=== PATIENT | male | born 1970 | race Hispanic/Latino ===

== ENCOUNTER 2017-09-26 16:09 | Emergency (ER) | payer OTHER, SELFPAY ==
[2017-09-26] MEDS ORDERED: MUPIROCIN 2% OINT 22GM TUBE TOP ONE (18:20)
[2017-09-26] MEDS ORDERED: INSULIN -REGULAR HUMAN 50 UNIT/0.5 ML ML ONE (18:23)
--- NOTE | 2017-09-26 18:28 | EDPHYS ---
Physician Documentation [facility] Name: Lion Pickard Age: 47 yrs Sex: Male : 1970 Arrival Date: 09/26/2017 Time: 16:12 Bed 20 Private MD: out of town, doctor ED Physician Cristian Braga HPI: 09/26 18:23 This 47 yrs old Male presents to ER via Ambulatory with complaints of Insect david Bite. 18:23 The patient presents with an abscess of the right breast, The patient presents with david cellulitis of the right breast. Description: The affected area is small, localized, erythematous, raised, swollen. Onset: The symptoms/episode began/occurred 1 week(s) ago. Possible cause(s): insect sting. Associated signs and symptoms: The patient has no apparent associated signs or symptoms. Modifying factors: the symptoms are alleviated by nothing, the symptoms are aggravated by pressure, squeezing the lesion and expressing the contents. The patient has not experienced similar symptoms in the past. Historical: - Allergies: 16:18 No Known Allergies; rk2 - PMHx: 16:18 Diabetes - IDDM; Hernia; Hypertension; rk2 - Immunization history:: Pneumococcal vaccine is not up to date, Flu vaccine is up to date. - Social history:: Smoking status: Patient/guardian denies using tobacco, the patient reports quitting approximately 6 years ago. - Family history:: not pertinent. ROS: 18:23 Constitutional: Negative for fever, chills, and weight loss, Eyes: Negative for injury, david pain, redness, and discharge, ENT: Negative for injury, pain, and discharge, Neck: Negative for injury, pain, and swelling, Cardiovascular: Negative for chest pain, palpitations, and edema, Respiratory: Negative for shortness of breath, cough, wheezing, and pleuritic chest pain, Abdomen/GI: Negative for abdominal pain, nausea, vomiting, diarrhea, and constipation, Back: Negative for injury and pain, : Negative for injury, bleeding, discharge, and swelling, MS/Extremity: Negative for injury and deformity, Neuro: Negative for headache, weakness, numbness, tingling, and seizure, Psych: Negative for depression, anxiety, suicide ideation, homicidal ideation, and hallucinations, Allergy/Immunology: Negative for hives, rash, and allergies, Endocrine: Negative for neck swelling, polydipsia, polyuria, polyphagia, and marked weight changes, Hematologic/Lymphatic: Negative for swollen nodes, abnormal bleeding, and unusual bruising. 18:23 Skin: Positive for cellulitis, erythema, swelling, of the right breast. Exam: 18:23 Constitutional: This is a well developed, well nourished patient who is awake, alert, david and in no acute distress. Head/Face: Normocephalic, atraumatic. Eyes: Pupils equal round and reactive to light, extra-ocular motions intact. Lids and lashes normal. Conjunctiva and sclera are non-icteric and not injected. Cornea within normal limits. Periorbital areas with no swelling, redness, or edema. ENT: Nares patent. No nasal discharge, no septal abnormalities noted. Tympanic membranes are normal and external auditory canals are clear. Oropharynx with no redness, swelling, or masses, exudates, or evidence of obstruction, uvula midline. Mucous membranes moist. Neck: Trachea midline, no thyromegaly or masses palpated, and no cervical lymphadenopathy. Supple, full range of motion without nuchal rigidity, or vertebral point tenderness. No Meningismus. Chest/axilla: Normal chest wall appearance and motion. Nontender with no deformity. No lesions are appreciated. Cardiovascular: Regular rate and rhythm with a normal S1 and S2. No gallops, murmurs, or rubs. Normal PMI, no JVD. No pulse deficits. Respiratory: Lungs have equal breath sounds bilaterally, clear to auscultation and percussion. No rales, rhonchi or wheezes noted. No increased work of breathing, no retractions or nasal flaring. Abdomen/GI: Soft, non-tender, with normal bowel sounds. No distension or tympany. No guarding or rebound. No evidence of tenderness throughout. Back: No spinal tenderness. No costovertebral tenderness. Full range of motion. Male : Normal genitalia with no discharge or lesions. MS/ Extremity: Pulses equal, no cyanosis. Neurovascular intact. Full, normal range of motion. Neuro: Awake and alert, GCS 15, oriented to person, place, time, and situation. Cranial nerves II-XII grossly intact. Motor strength 5/5 in all extremities. Sensory grossly intact. Cerebellar exam normal. Normal gait. Psych: Awake, alert, with orientation to person, place and time. Behavior, mood, and affect are within normal limits. 18:23 Skin: abscess, that is small, of the right breast, cellulitis, that is minimal, induration, that is mild is noted. Vital Signs: 16:18 BP 145 / 88; Pulse 97; Resp 17; Temp 98.5; Pulse Ox 97% on R/A; rk2 16:18 Weight 134.72 kg; Pain 8/10; rk2 17:37 BP 164 / 81; Pulse 97; Resp 18; Pulse Ox 95% on R/A; Pain 9/10; em 18:39 BP 128 / 78; Pulse 87; Resp 14; Pulse Ox 99% on R/A; Pain 7/10; em MDM: 17:31 Patient medically screened. [facility] 18:23 Data reviewed: vital signs, nurses notes, lab test result(s), finger stick glucose. [facility] 09/26 18:24 Order name: Glucose, Ancillary Testing EDDE 09/26 18:23 Order name: Blood Glucose Level; Complete Time: 18:30 [facility] Administered Medications: 18:29 Drug: Insulin Regular Human 10 units {Co-Signature: ph (Breanna Amin RN).} Route: em Sub-Q; Site: right upper arm; 18:41 Follow up: Response: No adverse reaction em 18:30 Drug: Bactroban Ointment 2 % 1 application {Note: applied to the right breast.} Route: em Topical; Site: affected area; 18:41 Follow up: Response: No adverse reaction em 18:40 Drug: Bactrim (160 mg-800 mg (DS) 1 tablet Route: PO; em 18:41 Follow up: Response: Medication administered at discharge. em 18:40 Drug: Doxycycline 200 mg Route: PO; em 18:41 Follow up: Response: Medication administered at discharge. em Point of Care Testing: Blood Glucose: 18:31 Blood Glucose: 312 mg/dL; em Ranges: Critical Glucose Levels:Adult <50 mg/dl or >400 mg/dl <40 mg/dl or >180 mg/dl Disposition: 09/26/17 18:28 Discharged to Home. Impression: Cutaneous abscess of chest wall, Type 1 diabetes mellitus. - Condition is Stable. - Discharge Instructions: Abscess, Cellulitis, Type 1 Diabetes Mellitus, Adult, Abscess, [id number], Cellulitis, [id number]. - Prescriptions for Bactroban 2 % Topical Ointment - Apply to affected area 1 application by TOPICAL route every 12 hours; 30 gram. Tylenol- Codeine #3 300-30 mg Oral Tablet - take 2 tablets by ORAL route every 6 hours As needed; 20 tablet. Doxycycline Hyclate 100 mg Oral Tablet - take 1 tablet by ORAL route every 12 hours; 20 tablet. Bactrim DS 800- 160 mg Oral Tablet - take 1 tablet by ORAL route every 12 hours for 10 days; 20 tablet. - Medication Reconciliation Form, Thank You Letter, Antibiotic Education, Prescription Opioid Use form. - Follow up: Private Physician; When: 2 - 3 days; Reason: Recheck today's complaints, Continuance of care, Re-evaluation by your physician. Follow up: Christiano Gandhi MD; When: 2 - 3 days; Reason: Recheck today's complaints, Re-evaluation by your physician. - Problem is new. - Symptoms have improved. Signatures: Dispatcher [employer] Cristian Maharaj MD MD cha Munoz, Edgar, COBOL APPLICATION DEVELOPER COBOL APPLICATION DEVELOPER Cassie Lyon, RN RN rk2 Breanna Amin RN ph
--- NOTE | 2017-09-26 18:28 | ER ---
Nurse's Notes [facility] Name: Lion Pickard Age: 47 yrs Sex: Male : 1970 Arrival Date: 09/26/2017 Time: 16:12 Bed 20 Private MD: out of town, doctor Diagnosis: Cutaneous abscess of chest wall;Type 1 diabetes mellitus Presentation: 09/26 16:15 Presenting complaint: Patient states: Pt. c/o abscess on right anterior chest wall... rk2 thinks it might be a adi bit; however, he has DM and recent hernia surgery and is worried about infection. Transition of care: patient was not received from another setting of care. Onset of symptoms was September 23, 2017. Initial Sepsis Screen: Does the patient meet any 2 criteria? No. Patient's initial sepsis screen is negative. Does the patient have a suspected source of infection? Yes: Skin breakdown/wound. Care prior to arrival: None. 16:15 Method Of Arrival: Ambulatory [facility] 16:15 Acuity: BATSHEVA 3 rk2 Triage Assessment: 17:42 Bite description: bite sustained to right breast by an unknown animal, animal em information: vaccination(s) is not applicable. General: Appears in no apparent distress. comfortable, Behavior is calm, cooperative. Historical: - Allergies: 16:18 No Known Allergies; rk2 - PMHx: 16:18 Diabetes - IDDM; Hernia; Hypertension; rk2 - Immunization history:: Pneumococcal vaccine is not up to date, Flu vaccine is up to date. - Social history:: Smoking status: Patient/guardian denies using tobacco, the patient reports quitting approximately 6 years ago. - Family history:: not pertinent. Screenin:35 Abuse screen: Denies threats or abuse. Nutritional screening: No deficits noted. em Tuberculosis screening: No symptoms or risk factors identified. Fall Risk None identified. Assessment: 17:38 General: Appears in no apparent distress. comfortable, Behavior is calm, cooperative. em Pain: Complains of pain in right breast. Neuro: Level of Consciousness is awake, alert, obeys commands, Oriented to person, place, time, situation. Cardiovascular: Capillary refill < 3 seconds Patient's skin is warm and dry. Respiratory: Airway is patent Respiratory effort is even, unlabored, Respiratory pattern is regular, symmetrical. GI: Abdomen is wound noted above the umbilicus, reports it was drained in [place]. : No signs and/or symptoms were reported regarding the genitourinary system. EENT: No signs and/or symptoms were reported regarding the EENT system. Derm: Skin abscess noted on right breast Skin is pink, warm \T\ dry. Musculoskeletal: Range of motion: intact in all extremities. 18:00 Reassessment: Patient appears in no apparent distress at this time. I agree with above iw assessment by Fracisco Peters LVN. 18:28 Reassessment: Patient appears in no apparent distress at this time. Patient and/or em family updated on plan of care and expected duration. Pain level reassessed. Patient is alert, oriented x 3, equal unlabored respirations, skin warm/dry/pink. Vital Signs: 16:18 BP 145 / 88; Pulse 97; Resp 17; Temp 98.5; Pulse Ox 97% on R/A; rk2 16:18 Weight 134.72 kg; Pain 8/10; rk2 17:37 BP 164 / 81; Pulse 97; Resp 18; Pulse Ox 95% on R/A; Pain 9/10; em 18:39 BP 128 / 78; Pulse 87; Resp 14; Pulse Ox 99% on R/A; Pain 7/10; em ED Course: 16:12 Patient arrived in ED. mr 16:13 out of town, doctor is Private Physician. mr 16:18 Triage completed. rk2 17:30 Fracisco Peters LVN is Primary Nurse. em 17:31 Cristian Braga MD is Attending Physician. david 17:36 Patient has correct armband on for positive identification. Bed in low position. Call em light in reach. Side rails up X2. Pulse ox on. NIBP on. 17:39 Arm band placed on. em 18:27 Christiano Gandhi MD is Referral Physician. david 18:39 No provider procedures requiring assistance completed. Patient did not have IV access em during this emergency room visit. Administered Medications: 18:29 Drug: Insulin Regular Human 10 units {Co-Signature: ph (Breanna Amin RN).} Route: em Sub-Q; Site: right upper arm; 18:41 Follow up: Response: No adverse reaction em 18:30 Drug: Bactroban Ointment 2 % 1 application {Note: applied to the right breast.} Route: em Topical; Site: affected area; 18:41 Follow up: Response: No adverse reaction em 18:40 Drug: Bactrim (160 mg-800 mg (DS) 1 tablet Route: PO; em 18:41 Follow up: Response: Medication administered at discharge. em 18:40 Drug: Doxycycline 200 mg Route: PO; em 18:41 Follow up: Response: Medication administered at discharge. em Point of Care Testing: Blood Glucose: 18:31 Blood Glucose: 312 mg/dL; em Ranges: Outcome: 18:28 Discharge ordered by MD. hernandez 18:42 Discharged to home ambulatory. em 18:42 Condition: good 18:42 Discharge instructions given to patient, Instructed on discharge instructions, follow up and referral plans. medication usage, Demonstrated understanding of instructions, follow-up care, medications, Prescriptions given X 4. 18:42 Patient left the ED. em Signatures: Cristian Braga MD MD cha Rivera, Maria mr Munoz, Fracisco, FUNERAL SALES MANAGER FUNERAL SALES MANAGER em Dot Miller RN RN iw Kidder, Rhonda, RN RN rk2 Breanna Amin RN ph
[2017-09-26] MEDS ORDERED: SMZ./TMP. 800/160 MG TABLET ONE (18:32)
[2017-09-26] MEDS ORDERED: DOXYCYCLINE 100 MG CAP PO ONE (18:33)
[2017-09-26 18:48] VITALS: TEMP 98.5
[2017-09-26 18:54] VITALS: BP 128/78; O2SAT 99
== END 2017-09-26 18:42 | disposition home or self-care (01) ==
LOC: ER 16:09
DX: L02.213 Cutaneous abscess of chest wall (principal); E10.8 Type 1 diabetes mellitus with unspecified complications
CPT/HCPCS: 82962; 96372; 99283

== ENCOUNTER 2017-11-17 09:55 | Inpatient (IN) | payer SELFPAY ==
[2017-11-17] MEDS ORDERED: NA CHLORIDE 0.9% 1,000 ML ONE (10:29)
[2017-11-17 11:07] LABS: Absolute Lymphocytes (CBC) 1.1 K/uL (0.7-4.9); Absolute Monocytes 0.7 K/uL (0.1-1.3); Absolute Neutrophil 14.1 K/uL (1.8-8.0); Basophils % 0.7 % (0-1.3); Eosinophils % 0.8 % (0-4.4); Hematocrit 42.1 % (39.6-49.0); Lymphocytes % 6.9 % (15.3-44.8); MCH 29.6 pg (27.0-35.0); MCV 87.2 fL (80-100); MPV 9.8 fL (7.6-11.3); Monocytes % 4.1 % (3.3-12.3); RBC Red Blood Cell Count 4.83 M/uL (4.33-5.43)
[2017-11-17 11:15] LABS: Bicarbonate 24 mEq/L (21-31); Potassium 3.9 mEq/L (3.6-5.0); Sodium Level 129 mEq/L (135-145)
[2017-11-17 11:16] LABS: BUN Blood Urea Nitrogen 11 mg/dL (6-20)
[2017-11-17 11:26] LABS: Glucose Level 400 mg/dL (65-120)
[2017-11-17 11:31] LABS: Urine Blood TRACE (NEG); Urine Glucose 2+ (NEG); Urine Protein NEGATIVE (NEG); Urine Specific Gravity 1.015 (1.005-1.030); Urine pH 5.5 (5.0-7.0)
[2017-11-17] MEDS ORDERED: INSULIN -REGULAR HUMAN 50 UNIT/0.5 ML ML ONE (12:14)
[2017-11-17 12:26] LABS: Blood Morphology Comment NOT SEEN (NOT SEEN); Platelet Estimate ADEQ; Urine White Blood Cell Casts OK
--- NOTE | 2017-11-17 12:40 | RAD REPORT ---
EXAM DESCRIPTION: RAD - Foot Right 3 View - 11/17/2017 12:26 pm CLINICAL HISTORY: Right foot pain status post injury FINDINGS: No fracture or dislocation is seen. Large calcaneal spurs are present. No bony destructive lesion is seen
[2017-11-17] MEDS ORDERED: VANCOMYCIN 1 GM/250 ML BAG ONE (12:54)
--- NOTE | 2017-11-17 12:58 | ER ---
Nurse's Notes [facility] Name: Lion Pickard Age: 47 yrs Sex: Male : 1970 Arrival Date: 11/17/2017 Time: 09:57 Bed 18 Private MD: out of town, doctor Diagnosis: Cellulitis of left lower limb;Lymphangitis;Hyperglycemia, unspecified Presentation: 11/17 10:04 Presenting complaint: Patient states: Reports sore on right foot with pain radiating up aj right leg. Transition of care: patient was not received from another setting of care. Onset of symptoms was November 09, 2017. Risk Assessment: Do you want to hurt yourself or someone else? Patient reports no desire to harm self or others. Care prior to arrival: None. 10:04 Method Of Arrival: Wheelchair aj 10:04 Acuity: BATSHEVA 3 aj 10:17 Initial Sepsis Screen: Does the patient meet any 2 criteria? HR > 90 bpm. Yes Does the hj patient have a suspected source of infection? Yes: Skin breakdown/wound. Triage Assessment: 10:05 General: Appears in no apparent distress. comfortable, Behavior is calm, cooperative, aj appropriate for age. Pain: Complains of pain in right leg. Neuro: Level of Consciousness is awake, alert, obeys commands, Oriented to person, place, time, situation, Appropriate for age. Respiratory: Airway is patent Respiratory effort is even, unlabored, Respiratory pattern is regular, symmetrical. Derm: Skin is intact, is healthy with good turgor, Skin is pink, warm \T\ dry. normal, Wound noted right foot. Historical: - Allergies: 10:05 No Known Allergies; aj - PMHx: 10:05 Diabetes - IDDM; Hernia; Hypertension; neuropathy; aj - PSHx: 10:05 Hernia repair; aj - Immunization history:: Adult Immunizations up to date. - Social history:: Smoking status: Patient/guardian denies using tobacco. - Ebola Screening: : Patient negative for fever greater than or equal to 101.5 degrees Fahrenheit, and additional compatible Ebola Virus Disease symptoms Patient denies exposure to infectious person Patient denies travel to an Ebola-affected area in the 21 days before illness onset No symptoms or risks identified at this time. Screenin:17 Abuse screen: Denies threats or abuse. Denies injuries from another. Nutritional hj screening: No deficits noted. Tuberculosis screening: No symptoms or risk factors identified. Fall Risk None identified. Assessment: 10:17 General: Appears in no apparent distress. uncomfortable, obese, Behavior is calm, hj cooperative, appropriate for age. Pain: Complains of pain in right leg. Neuro: Level of Consciousness is awake, alert, obeys commands, Oriented to person, place, time, situation, Appropriate for age. Cardiovascular: Denies chest pain, Capillary refill < 3 seconds Patient's skin is warm and dry. Respiratory: Airway is patent Respiratory effort is even, unlabored, Respiratory pattern is regular, symmetrical. GI: No signs and/or symptoms were reported involving the gastrointestinal system. : No signs and/or symptoms were reported regarding the genitourinary system. EENT: No signs and/or symptoms were reported regarding the EENT system. Derm: Wound noted right foot. Musculoskeletal: No signs and/or symptoms reported regarding the musculoskeletal system. 11:15 Reassessment: Patient and/or family updated on plan of care and expected duration. Pain hj level reassessed. Patient is alert, oriented x 3, equal unlabored respirations, skin warm/dry/pink. 12:15 Reassessment: Patient and/or family updated on plan of care and expected duration. Pain hj level reassessed. Patient is alert, oriented x 3, equal unlabored respirations, skin warm/dry/pink. for admit;. 13:12 Reassessment: Patient and/or family updated on plan of care and expected duration. Pain hj level reassessed. Patient is alert, oriented x 3, equal unlabored respirations, skin warm/dry/pink. awaiting room placment;. 13:58 Reassessment: Patient and/or family updated on plan of care and expected duration. Pain hj level reassessed. Patient is alert, oriented x 3, equal unlabored respirations, skin warm/dry/pink. Patient states feeling better. for D/C; able to ambulate approx 50-60 feet;. 15:09 Reassessment: Patient and/or family updated on plan of care and expected duration. Pain hj level reassessed. Patient is alert, oriented x 3, equal unlabored respirations, skin warm/dry/pink. Patient states feeling better. Vital Signs: 10:05 BP 138 / 111; Pulse 114; Resp 20; Temp 99.2; Pulse Ox 98% on R/A; Weight 133.81 kg; aj Height 6 ft. 0 in. (182.88 cm); 10:18 BP 135 / 72; Pulse 107; Resp 18; Temp 99.1(TE); Pulse Ox 100% on R/A; hj 13:13 BP 138 / 70; Pulse 95; Resp 18; Pulse Ox 100% on R/A; hj 13:59 BP 136 / 68; Pulse 90; Resp 18; Pulse Ox 100% on R/A; hj 10:05 Body Mass Index 40.01 (133.81 kg, 182.88 cm) aj ED Course: 09:57 Patient arrived in ED. mr 09:58 out of town, doctor is Private Physician. mr 10:05 Triage completed. aj 10:05 Arm band placed on right wrist. Patient placed in an exam room. aj 10:16 Alberto Joseph, RN is Primary Nurse. hj 10:17 Patient has correct armband on for positive identification. Placed in gown. Bed in low hj position. Call light in reach. Side rails up X 1. Adult w/ patient. 10:20 Mohsen nEglish MD is Attending Physician. rn 10:45 Inserted saline lock: 20 gauge in left antecubital area, using aseptic technique. hj ,using aseptic technique. BC student Blood collected. 10:45 Initial lab(s) drawn, by ED staff, sent to lab. First set of blood cultures drawn hj Second set of blood cultures drawn by ED staff. 12:26 XRAY Foot RIGHT 3 View In Process Unspecified. EDMS 12:53 Phuc Henriquez MD is Hospitalizing Provider. rn 16:56 No provider procedures requiring assistance completed. Patient admitted, IV remains in hj place. intact. Administered Medications: 10:45 Drug: NS 0.9% 1000 ml Route: IV; Rate: 1000 ml; Site: left antecubital; hj 13:10 Follow up: IV Status: Completed infusion; IV Intake: 1000ml hj 12:08 Drug: Insulin Regular Human 10 units {Co-Signature: aa5 (Joanna Ron RN).} Route: hj Sub-Q; Site: abdomen; 12:18 Follow up: Response: No adverse reaction hj 12:48 Drug: vancoMYCIN 1 grams Route: IVPB; Infused Over: 2 hrs; Site: left antecubital; hj 13:07 Follow up: IV Status: Infusion continued Point of Care Testing: Blood Glucose: 10:30 Blood Glucose: 267 mg/dL; hj 13:11 Blood Glucose: 202 mg/dL; Ranges: Intake: 13:10 IV: 1000ml; Total: 1000ml. Outcome: 12:57 Decision to Hospitalize by Provider. rn 16:56 Admitted to Med/surg accompanied by tech, family with patient, via wheelchair, room hj 219, with chart, Report called to [facility] [place] 16:56 Condition: stable 16:56 Instructed on the need for admit, Demonstrated understanding of instructions. 16:57 Patient left the ED. Signatures: Dispatcher [employer] EDChelly Whitt RN RN aj Rivera, Maria mr Nieto, Roman, MD MD rn Joaquin, Henry, RN RN Joanna Ron RN aa5
--- NOTE | 2017-11-17 12:58 | EDPHYS ---
Physician Documentation [facility] Name: Lion Pickard Age: 47 yrs Sex: Male : 1970 Arrival Date: 11/17/2017 Time: 09:57 Bed 18 Private MD: out of town, doctor ED Physician Mohsen English HPI: 11/17 10:28 This 47 yrs old Male presents to ER via Wheelchair with complaints of Sore on rn foot. 10:28 The patient presents with cellulitis of the right foot, the patient presents with a rn swollen area of the right foot. Description: erythematous, swollen, warm. Onset: The symptoms/episode began/occurred at an unknown time. Modifying factors: the symptoms are alleviated by nothing, the symptoms are aggravated by movement, pressure, squeezing the lesion and expressing the contents. Severity of symptoms: At their worst the symptoms were moderate, in the emergency department the symptoms are unchanged. The patient has not experienced similar symptoms in the past. Foot began hurting yesterday, unknown what happened, noticed small amount of drainage, no fever, + hurting up right leg.. Historical: - Allergies: 10:05 No Known Allergies; aj - PMHx: 10:05 Diabetes - IDDM; Hernia; Hypertension; neuropathy; aj - PSHx: 10:05 Hernia repair; aj - Immunization history:: Adult Immunizations up to date. - Social history:: Smoking status: Patient/guardian denies using tobacco. - Ebola Screening: : Patient negative for fever greater than or equal to 101.5 degrees Fahrenheit, and additional compatible Ebola Virus Disease symptoms Patient denies exposure to infectious person Patient denies travel to an Ebola-affected area in the 21 days before illness onset No symptoms or risks identified at this time. ROS: 10:30 Constitutional: Negative for fever, chills, and weight loss, Eyes: Negative for injury, rn pain, redness, and discharge, Cardiovascular: Negative for chest pain, palpitations, and edema, Respiratory: Negative for shortness of breath, cough, wheezing, and pleuritic chest pain, Abdomen/GI: Negative for abdominal pain, nausea, vomiting, diarrhea, and constipation, MS/Extremity: + right foot pain and injury Skin: + redness to foot Neuro: Negative for headache, weakness, numbness, tingling, and seizure. Exam: 10:30 Constitutional: This is a well developed, well nourished patient who is awake, alert, rn and in no acute distress. Cardiovascular: tachycardic, regular, no murmur Respiratory: Lungs have equal breath sounds bilaterally, clear to auscultation and percussion. No rales, rhonchi or wheezes noted. No increased work of breathing, no retractions or nasal flaring. Abdomen/GI: Soft, non-tender, with normal bowel sounds. No distension or tympany. No guarding or rebound. No evidence of tenderness throughout. MS/ Extremity: Pulses equal, no cyanosis. Neurovascular intact. Full, normal range of motion. Equal circumference. + right foot with puncture wound/ulceration to base of 1st MCP, with surrounding erythema and warmth, no fluctuance, + streaking up right leg, with inguinal LAD Vital Signs: 10:05 BP 138 / 111; Pulse 114; Resp 20; Temp 99.2; Pulse Ox 98% on R/A; Weight 133.81 kg; aj Height 6 ft. 0 in. (182.88 cm); 10:18 BP 135 / 72; Pulse 107; Resp 18; Temp 99.1(TE); Pulse Ox 100% on R/A; hj 13:13 BP 138 / 70; Pulse 95; Resp 18; Pulse Ox 100% on R/A; hj 13:59 BP 136 / 68; Pulse 90; Resp 18; Pulse Ox 100% on R/A; hj 10:05 Body Mass Index 40.01 (133.81 kg, 182.88 cm) aj MDM: 10:20 Patient medically screened. rn 12:43 Differential diagnosis: cellulitis, phlebitis, cellulitis, lymphangitis. Data reviewed: rn vital signs, nurses notes, lab test result(s), radiologic studies, plain films, and as a result, I will admit patient. Counseling: I had a detailed discussion with the patient and/or guardian regarding: the historical points, exam findings, and any diagnostic results supporting the discharge/admit diagnosis, lab results, radiology results, the need for further work-up and treatment in the hospital. Response to treatment: the patient's symptoms have mildly improved after treatment. Admission orders: after a detailed discussion of the patient's condition and case, the admit orders are written by me. 11/17 10:26 Order name: CBC with Diff; Complete Time: 12:38 rn 11/17 10:26 Order name: Basic Metabolic Panel; Complete Time: 12:07 rn 11/17 10:26 Order name: Procalcitonin; Complete Time: 12:07 rn 11/17 10:26 Order name: Blood Culture Adult (2) rn 11/17 10:26 Order name: Ketone, Serum; Complete Time: 12:07 rn 11/17 10:30 Order name: Wound Culture rn 11/17 10:26 Order name: IV Start; Complete Time: 10:44 rn 11/17 10:26 Order name: Glucose Level; Complete Time: 10:31 rn 11/17 10:28 Order name: XRAY Foot RIGHT 3 View; Complete Time: 12:44 rn 11/17 11:09 Order name: CBC Smear Scan; Complete Time: 12:38 EDMS 11/17 11:17 Order name: Urine Dipstick--Ancillary (enter results); Complete Time: 12:07 bd Administered Medications: 10:45 Drug: NS 0.9% 1000 ml Route: IV; Rate: 1000 ml; Site: left antecubital; hj 13:10 Follow up: IV Status: Completed infusion; IV Intake: 1000ml hj 12:08 Drug: Insulin Regular Human 10 units {Co-Signature: aa5 (Joanna Ron RN).} Route: hj Sub-Q; Site: abdomen; 12:18 Follow up: Response: No adverse reaction hj 12:48 Drug: vancoMYCIN 1 grams Route: IVPB; Infused Over: 2 hrs; Site: left antecubital; hj 13:07 Follow up: IV Status: Infusion continued hj Point of Care Testing: Blood Glucose: 10:30 Blood Glucose: 267 mg/dL; hj 13:11 Blood Glucose: 202 mg/dL; hj Ranges: Critical Glucose Levels:Adult <50 mg/dl or >400 mg/dl <40 mg/dl or >180 mg/dl Disposition: 11/17/17 12:57 Hospitalization ordered by Phuc Henriquez for Inpatient Admission. Preliminary diagnosis are Cellulitis of left lower limb, Lymphangitis, Hyperglycemia, unspecified. - Bed requested for Telemetry/MedSurg (Inpatient). - Status is Inpatient Admission. hj - Condition is Stable. - Problem is new. - Symptoms have improved. UTI on Admission? No Signatures: Dispatcher [employer] EDMS Dirrim, Mary Ann bd Robins, Chelly, RN RN aj English, Mohsen, MD MD rn Jake, Alberto, RN RN hj Joanna Ron RN aa5 Corrections: (The following items were deleted from the chart) 15:38 12:57 Hospitalization Ordered by Phuc Henriquez MD for Inpatient Admission. Preliminary bd diagnosis is Cellulitis of left lower limb; Lymphangitis; Hyperglycemia, unspecified. Bed requested for Telemetry/MedSurg (Inpatient). Status is Inpatient Admission. Condition is Stable. Problem is new. Symptoms have improved. UTI on Admission? No. rn 16:57 15:38 11/17/2017 12:57 Hospitalization Ordered by Phuc Henriquez MD for Inpatient hj Admission. Preliminary diagnosis is Cellulitis of left lower limb; Lymphangitis; Hyperglycemia, unspecified. Bed requested for Telemetry/MedSurg (Inpatient). Status is Inpatient Admission. Condition is Stable. Problem is new. Symptoms have improved. UTI on Admission? No. bd
[2017-11-17] MEDS ORDERED: ACETAMINOPHEN 500 MG TAB PO PRN (13:24)
[2017-11-17] MEDS ORDERED: ONDANSETRON 4 MG/2 ML VIAL IV PRN (13:24)
[2017-11-17] MEDS ORDERED: D50W 25 GM/50 ML SYRINGE IV PRN (13:34)
[2017-11-17] MEDS ORDERED: GLUCAGON 1 MG/VIAL IM PRN (13:34)
[2017-11-17] MEDS ORDERED: VANCOMYCIN/NS 1 gm 1 GM/250 ML BAG IV ONE ×2 (15:00→18:00)
[2017-11-17] MEDS: INSULIN -REGULAR HUMAN 50 UNIT/0.5 ML ML SQ SCH ×2 (16:30→21:00)
[2017-11-17 17:07] VITALS: BMI 40.0
[2017-11-17] MEDS: NA CHLORIDE 0.9% 1,000 ML IV SCH (17:26)
[2017-11-17] MEDS: Levofloxacin500mg IV 500 MG/100 ML BAG IV SCH (17:27)
[2017-11-17] MEDS: HYDROCODONE/APAP 7.5/325 MG TAB PO PRN (17:27)
[2017-11-17] MEDS ORDERED: INSULIN ASPART 40 UNIT SQ SCH (21:00)
[2017-11-17] MEDS ORDERED: INSULIN DETEMIR 100 UNIT SQ SCH (21:00)
[2017-11-17] MEDS ORDERED: VANCOMYCIN 1GM/D5W 200 ML IV SCH (21:00)
[2017-11-17] MEDS: GABAPENTIN 100 MG CAP PO SCH (21:29)
[2017-11-17] MEDS: INSULIN DETEMIR 100 UNIT/1 ML INSULIN SQ SCH (21:30)
[2017-11-17] MEDS: KETOROLAC 30 MG/ML INJ IV PRN (21:31)
[2017-11-18] MEDS: HYDROCODONE/APAP 7.5/325 MG TAB PO PRN (00:37)
--- NOTE | 2017-11-18 01:48 | HP ---
Date of Admission: 11/17/2017 Primary Care Physician: In [place], out of [facility]. Hematologist: Dr. Tran with ID. Chief Complaint: Right foot pain, redness. History Of Present Illness: The patient is a 47-year-old male with past medical history of insulin-d ependent diabetes, hypertension, who was in his usual state of health until the day prior to admissio n when the patient had sudden onset of pain in his right foot along with some redness. The patient d oes report some trauma, but states that he has been wearing his shoes inside the house and outside, d oes not remember getting any cuts, bruises, or any insect bites on his feet. The patient's symptoms are constant, moderate, progressively worsening. He denies any fevers or chills. No nausea or vomit ing. Does report some pain. His workup on arrival showed a white count of 16,000 with left shift. His glucose was 400, however, no acetone or ketones. The patient had a foot x-ray, which showed no f ree air. The patient was then referred for admission for cellulitis and lymphangitis. When seen in the ER, he was awake, alert, oriented x3, in some acute distress. Past Medical History: Diabetes mellitus type 2, insulin requiring; hypertension. Past Surgical History: The patient had umbilical hernia repair, and surgery on the back of his head due to skin infection. Allergies: NO KNOWN DRUG ALLERGIES. Medications: List reviewed. Social History: The patient denies any tobacco use, alcohol use, or illicit drug use. Family History: The patient's mother has diabetes, and end-stage renal disease on dialysis. Review of Systems: An 11-point system reviewed, negative except as above. Medications: Reviewed. Physical Examination: Vital Signs: Temperature 99.2, heart rate 114, blood pressure 138/111, respirations 20, O2 is 98% on room air. General: Awake, alert, oriented x3, in some mild distress. Ill-appearing male. HEENT: Normocephalic, atraumatic. PERRLA. EOMI. Moist mucous membranes. Oropharynx is clear. Co njunctiva are anicteric. Poor dentition. Neck: Supple. No JVD. Trachea midline. CV: S1, S2. Sinus tachycardia. Peripheral pulses present. No murmurs. Respiratory: Clear to ausc ultation bilaterally. No wheezing. No stridor. No use of accessory muscles. Gastrointestinal: Abdomen is soft, nontender, nondistended. Positive bowel sounds. No guarding or rigidity. Extremities: No clubbing, cyanosis. Some trace pedal edema on the right foot. No calf tenderness. Neurologic: Cranial nerves 2-12 intact grossly. No focal neurological deficits. Speech is normal. Strength is 5/5 in bilateral upper and lower extremities. Sensation is decreased to light touch due to neuropathy. Skin: The patient has erythema in a reticular pattern on the right foot extending from the plantar a spect of the first metatarsal extending over to the dorsal side extending up towards the ankle. Tend erness to palpation. Some warmth. The patient also has a furuncle on the abdominal wall with no cb rounding erythema. Multiple scars on the abdomen and the back of his scalp. Psychiatric: Mood is okay. Affect is full. Insight and judgment are good. Labs: Acetone level negative. UA; negative nitrite, negative leukocyte. Sodium 129, potassium 3.9, chloride 98, CO2 24, BUN 11, creatinine 1.16, glucose 400, calcium 8.8. Procalcitonin 0.13. WBC 16 .1, H and H 14.3, 42.1, platelets 197, neutrophils 87%. Foot x-ray shows no fracture or dislocation. Large calcaneal spurs are present. No bony destructive lesion is seen. Assessment And Plan: A 47-year-old male with: 1.Right foot cellulitis. We will continue with IV antibiotics. Obtain blood cultures and wound cul tures. X-ray does not show any free air. May need to get MRI to rule out osteo, possible surgical c onsultation. ID has been consulted. 2.Diabetes mellitus type 2, uncontrolled with hyperglycemia, insulin requiring. We will check hemog lobin A1c. The patient has received 10 units of insulin in the ER. Glucose is improved to 200. We will resume home dose. Continue sliding scale for now. Continue Accu-Cheks. 3.Essential hypertension, stable. We will resume home medications. 4.Obesity. 5.Gastrointestinal deep venous thrombosis prophylaxis with PPI and SCDs. No chemical anticoagulatio n in anticipation for possible debridement. Plan: Admit the patient to Med-Surg place as an inpatient. SA/MODL Voice ID: [id number]
[2017-11-18] MEDS ORDERED: VANCOMYCIN 2 GM in NA CHLORIDE 0.9% 500 ML IVPB SCH (03:00)
[2017-11-18] MEDS: KETOROLAC 30 MG/ML INJ IV PRN ×2 (04:13→16:02)
[2017-11-18] MEDS: NA CHLORIDE 0.9% 1,000 ML IV SCH ×3 (04:13→22:15)
[2017-11-18] MEDS: VANCOMYCIN 2 GM in NA CHLORIDE 0.9% 500 ML IVPB SCH ×2 (05:23→16:02)
[2017-11-18 05:40] LABS: Absolute Lymphocytes (CBC) 1.3 K/uL (0.7-4.9); Absolute Monocytes 0.7 K/uL (0.1-1.3); Absolute Neutrophil 10.3 K/uL (1.8-8.0); Basophils % 0.3 % (0-1.3); Eosinophils % 2.5 % (0-4.4); Hematocrit 36.2 % (39.6-49.0); Lymphocytes % 9.9 % (15.3-44.8); MCH 30.4 pg (27.0-35.0); MPV 9.6 fL (7.6-11.3); Monocytes % 5.9 % (3.3-12.3); RBC Red Blood Cell Count 4.16 M/uL (4.33-5.43)
[2017-11-18] MEDS ORDERED: PROMETHAZINE 25 MG/ML VIAL IV PRN (08:06)
[2017-11-18] MEDS: INSULIN -REGULAR HUMAN 50 UNIT/0.5 ML ML SQ SCH ×4 (08:38→21:00)
[2017-11-18] MEDS: INSULIN DETEMIR 100 UNIT/1 ML INSULIN SQ SCH ×2 (08:39→21:00)
[2017-11-18] MEDS: INSULIN LISPRO 100 UNIT/1 ML SQ SCH ×3 (08:39→16:04)
[2017-11-18] MEDS: SERTRALINE HCL 100 MG TAB PO SCH (08:40)
[2017-11-18] MEDS: GABAPENTIN 100 MG CAP PO SCH ×3 (08:40→22:14)
[2017-11-18] MEDS: hydroCHLOROthiazide 25 MG TAB PO SCH (08:40)
[2017-11-18] MEDS: SERTRALINE HCL 50 MG TAB PO SCH (08:40)
[2017-11-18] MEDS: HOME MED 1 EA UNK (Canagliflozin [Invokana] 300 MG) PO SCH (09:00)
--- NOTE | 2017-11-18 14:34 | P.PN ---
Subjective Date of Service: 11/18/17 Primary Care Provider: unknown Chief Complaint: Cellulitis, lymphangitis right lower ext Subjective: Improving (Will await cx for discharge. Pt states he is nauseated but the redness at his foot and lower leg is improved) Review of Systems Unremarkable General: Unremarkable Eyes: Unremarkable ENT: Unremarkable Respiratory: Unremarkable Cardiovascular: Unremarkable Gastrointestinal: Nausea (phenergan prn ordered) Genitourinary: Unremarkable Musculoskeletal: Unremarkable Integumentary: As per HPI Neurological: Unremarkable Lymphatics: Unremarkable Physical Examination - Vital Signs Temperature: 97.2 F Blood Pressure: 157/80 Pulse: 62 Respirations: 17 Pulse Ox (%): 98 - Physical Exam General: Alert, In no apparent distress, Oriented x3 HEENT: Atraumatic, Normocephalic, PERRLA Neck: 2+ carotid pulse no bruit Respiratory: Clear to auscultation bilaterally, Normal air movement Cardiovascular: No edema, Normal pulses Capillary refill: <2 Seconds Gastrointestinal: Normal bowel sounds Musculoskeletal: No clubbing Integumentary: Tenderness/swelling, Erythema, Other (cellulitis with lymphangitis to right medial instep moving up to mid medial ankle) Neurological: Sensation intact Lymphatics: Inguinal lymphadenopathy External genitalia: Deferred Rectal: Deferred - Studies Microbiology Data (last 24 hrs): 11/17/17 10:45 Wound - Right Foot Gram Stain - Final Assessment & Plan - Problems (Diagnosis) (1) Cellulitis Onset Date: 11/18/17 Current Visit: Yes Status: Acute Plan: Continue Vanc, await sensitivities Qualifiers: Site of cellulitis of extremity: lower extremity Laterality: right (2) Hypertension Current Visit: Yes Status: Acute Plan: Continue to monitor, low salt diet, antihypertensive meds as directed Qualifiers: Hypertension type: essential hypertension Qualified Code(s): I10 - Essential (primary) hypertension (3) Hyperglycemia Onset Date: 04/15/17 Current Visit: Yes Status: Acute Plan: Monitor FSBS, Insulin, treat infection
[2017-11-18] MEDS: Levofloxacin500mg IV 500 MG/100 ML BAG IV SCH (15:00)
[2017-11-19] MEDS: KETOROLAC 30 MG/ML INJ IV PRN ×2 (04:41→23:59)
[2017-11-19 05:24] LABS: Absolute Lymphocytes (CBC) 1.3 K/uL (0.7-4.9); Absolute Monocytes 0.8 K/uL (0.1-1.3); Absolute Neutrophil 11.1 K/uL (1.8-8.0); Basophils % 0.3 % (0-1.3); Eosinophils % 2.3 % (0-4.4); Hematocrit 35.7 % (39.6-49.0); Lymphocytes % 9.5 % (15.3-44.8); MCH 30.4 pg (27.0-35.0); MCV 86.3 fL (80-100); MPV 10.1 fL (7.6-11.3); Monocytes % 5.7 % (3.3-12.3); RBC Red Blood Cell Count 4.14 M/uL (4.33-5.43)
[2017-11-19] MEDS: NA CHLORIDE 0.9% 1,000 ML IV SCH (06:00)
[2017-11-19] MEDS: HYDROCODONE/APAP 7.5/325 MG TAB PO PRN ×2 (06:47→21:55)
[2017-11-19 07:02] LABS: Potassium 3.9 mEq/L (3.6-5.0)
[2017-11-19] MEDS: VANCOMYCIN 2 GM in NA CHLORIDE 0.9% 500 ML IVPB SCH (07:43)
[2017-11-19] MEDS: GABAPENTIN 100 MG CAP PO SCH ×3 (08:31→21:52)
[2017-11-19] MEDS: hydroCHLOROthiazide 25 MG TAB PO SCH (08:31)
[2017-11-19] MEDS: INSULIN -REGULAR HUMAN 50 UNIT/0.5 ML ML SQ SCH ×4 (08:32→21:53)
[2017-11-19] MEDS: SERTRALINE HCL 100 MG TAB PO SCH (08:32)
[2017-11-19] MEDS: SERTRALINE HCL 50 MG TAB PO SCH (08:32)
[2017-11-19] MEDS: INSULIN LISPRO 100 UNIT/1 ML SQ SCH ×3 (08:32→17:13)
[2017-11-19] MEDS: INSULIN DETEMIR 100 UNIT/1 ML INSULIN SQ SCH ×2 (08:33→21:00)
[2017-11-19] MEDS: HOME MED 1 EA UNK (Canagliflozin [Invokana] 300 MG) PO SCH (08:33)
--- NOTE | 2017-11-19 11:14 | P.PN ---
Subjective Date of Service: 11/19/17 Primary Care Provider: unknown Chief Complaint: Cellulitis, lymphangitis right lower ext Subjective: Improving (Patient is doing much better his erythema as reduced is less problems weight-bearing no other complaints) Review of Systems Unremarkable Physical Examination - Vital Signs Temperature: 97.7 F Blood Pressure: 196/90 Pulse: 90 Respirations: 20 Pulse Ox (%): 98 - Physical Exam General: Alert, Oriented x3 Respiratory: Clear to auscultation bilaterally Cardiovascular: No edema, Normal S1 S2 Integumentary: Rash(es) (Patient has tenderness swelling in the right medial aspect of his foot which is improving), Tenderness/swelling - Studies Microbiology Data (last 24 hrs): 11/17/17 10:45 Wound - Right Foot Gram Stain - Final 11/17/17 10:45 Wound - Right Foot Culture & Sensitivity - Final Staph Aureus Assessment & Plan - Problems (Diagnosis) (1) Cellulitis Onset Date: 11/18/17 Current Visit: Yes Status: Acute Plan: Patient admitted with right foot cellulitis currently doing better 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 levofloxacin Staph aureus isolated in wound culture is white count is declined since admission plan to discharge tomorrow labs reviewed Qualifiers: Site of cellulitis of extremity: lower extremity Laterality: right
[2017-11-19] MEDS ORDERED: levoFLOXacin 750 MG TAB PO SCH (17:00)
[2017-11-19] MEDS: HYDRALAZINE HCL 20 MG/ML VIAL IV PRN (21:54)
[2017-11-20 05:15] LABS: Absolute Lymphocytes (CBC) 1.5 K/uL (0.7-4.9); Absolute Monocytes 0.7 K/uL (0.1-1.3); Absolute Neutrophil 8.4 K/uL (1.8-8.0); Basophils % 0.5 % (0-1.3); Eosinophils % 2.6 % (0-4.4); Hematocrit 38.2 % (39.6-49.0); MCH 30.6 pg (27.0-35.0); MPV 9.5 fL (7.6-11.3); Monocytes % 6.6 % (3.3-12.3); RBC Red Blood Cell Count 4.39 M/uL (4.33-5.43)
[2017-11-20 05:42] LABS: Potassium 4.3 mEq/L (3.6-5.0)
[2017-11-20] MEDS: GABAPENTIN 100 MG CAP PO SCH ×3 (08:01→21:18)
[2017-11-20] MEDS: hydroCHLOROthiazide 25 MG TAB PO SCH (08:01)
[2017-11-20] MEDS: SERTRALINE HCL 50 MG TAB PO SCH (08:01)
[2017-11-20] MEDS: SERTRALINE HCL 100 MG TAB PO SCH (08:01)
[2017-11-20] MEDS: INSULIN -REGULAR HUMAN 50 UNIT/0.5 ML ML SQ SCH ×4 (08:02→21:33)
[2017-11-20] MEDS: HYDROCODONE/APAP 7.5/325 MG TAB PO PRN (08:02)
[2017-11-20] MEDS: HOME MED 1 EA UNK (Canagliflozin [Invokana] 300 MG) PO SCH (08:03)
[2017-11-20] MEDS: INSULIN DETEMIR 100 UNIT/1 ML INSULIN SQ SCH ×2 (08:03→21:17)
[2017-11-20] MEDS: INSULIN LISPRO 100 UNIT/1 ML SQ SCH ×3 (08:03→16:35)
--- NOTE | 2017-11-20 10:24 | P.PN ---
Subjective Date of Service: 11/20/17 Primary Care Provider: unknown Chief Complaint: Cellulitis, lymphangitis right lower ext Subjective: Worsening (Condition worsened is started complaining of more pain and now 0 pleural and discharge in the region of the right toe) Review of Systems General: Fever, Weakness Musculoskeletal: Foot Pain Physical Examination - Vital Signs Temperature: 97.1 F Blood Pressure: 184/78 Pulse: 69 Respirations: 18 Pulse Ox (%): 96 - Physical Exam General: Alert, Oriented x3 Neck: Supple Respiratory: Clear to auscultation bilaterally Musculoskeletal: Other (His right foot is swollen now has a discharged in the region of the right great toe redness is worse) - Studies Microbiology Data (last 24 hrs): 11/17/17 10:45 Wound - Right Foot Gram Stain - Final 11/17/17 10:45 Wound - Right Foot Culture & Sensitivity - Final Staph Aureus Assessment & Plan - Problems (Diagnosis) (1) Cellulitis Onset Date: 11/18/17 Current Visit: Yes Status: Acute Plan: Patient admitted with right foot cellulitis appears to have got worse doctors and has been consulted scheduled to undergo incision and drainage tomorrow in well continue with levofloxacin I have added cephazolin patient has regular Staph NPO after midnight morphine and Vicodin for pain relief patient is ambulating is in able to weightbear Qualifiers: Site of cellulitis of extremity: lower extremity Laterality: right
--- NOTE | 2017-11-20 11:50 | CON ---
Date of Consultation: 11/20/2017 Reason For Consultation: Abscess and cellulitis, right foot. History Of Present Illness: The patient is a 47-year-old gentleman with multiple medical problems, w ho the day prior to admission last Tuesday had sudden onset of pain with redness in his right foot. He reports some trauma, but he is not sure where he stepped on it and the swelling, redness and chaitanya n have gotten worse. No fever or chills. He was admitted, started on IV antibiotics, and the rednes s improved, but however, during this time he developed an abscess on the medial aspect towards the pl antaris and medial to the first metatarsal head. His glucose was elevated when he came in, he had le ukocytosis, and he had a foot x-ray which was negative. He was admitted with cellulitis and lymphang itis, but as he has developed abscess, I was consulted. Review of Systems: Otherwise unremarkable. Past Medical History: Type 2 diabetes, hypertension. Past Surgical History: Umbilical hernia repair, I and D, multiple abscesses in different parts of hi s body. Allergies: NO ALLERGIES. Social History: Denies smoking or drinking. Family History: Significant for diabetes and end-stage renal disease. Physical Examination: Vital Signs: Stable. He is afebrile. General: He is awake, alert, and oriented x3. Head and Neck: Cranial nerves 2 through 12 are grossly within normal limits. No neck masses. No JV D. Throat clear. Neck is supple. Chest: Clear. Heart: S1, S2. Abdomen: Soft, nondistended, and nontender. Positive bowel sounds. Extremities: Palpable dorsalis pedis and posterior tibial pulses, 2+ equal bilaterally. On the righ t medial first toe and slightly posterior, there was an abscess approximately 3 x 4 cm with surroundi ng erythema, warmth and edema, but based on the marking, the redness has improved, but it is coalesce d into an abscessed area. Laboratory Data: His white count is 11,000 with a left shift. Sugar today is 270. Assessment: Abscess and cellulitis of the right foot first toe. Recommendations: Continue IV antibiotics. We will take the patient to the OR for incision, drainage , and debridement of the right foot abscess. The patient understands the risks, benefits, and altern atives and agrees to procedure. /MODL Voice ID: [id number] Report ID: [id number]
[2017-11-20] MEDS: CEFAZOLIN/SWI 2gm 2 GM/20 ML SYR IV SCH ×2 (11:57→16:35)
[2017-11-20] MEDS: HYDROCODONE/APAP 5/325 MG TAB PO PRN (16:35)
[2017-11-20] MEDS: MORPHINE 4 MG/ML SYR IV PRN (20:08)
[2017-11-20] MEDS: HYDRALAZINE HCL 20 MG/ML VIAL IV PRN (20:09)
[2017-11-21] MEDS: CEFAZOLIN/SWI 2gm 2 GM/20 ML SYR IV SCH ×3 (01:06→17:01)
[2017-11-21] MEDS: INSULIN -REGULAR HUMAN 50 UNIT/0.5 ML ML SQ SCH ×4 (07:30→22:25)
[2017-11-21] MEDS: INSULIN LISPRO 100 UNIT/1 ML SQ SCH ×3 (08:00→17:00)
[2017-11-21 08:23] LABS: Absolute Lymphocytes (CBC) 1.2 K/uL (0.7-4.9); Absolute Monocytes 0.6 K/uL (0.1-1.3); Absolute Neutrophil 8.7 K/uL (1.8-8.0); Basophils % 0.4 % (0-1.3); Eosinophils % 2.6 % (0-4.4); Hematocrit 38.1 % (39.6-49.0); Lymphocytes % 11.1 % (15.3-44.8); MCH 30.1 pg (27.0-35.0); MCV 85.7 fL (80-100); MPV 8.7 fL (7.6-11.3); Monocytes % 5.5 % (3.3-12.3); RBC Red Blood Cell Count 4.44 M/uL (4.33-5.43)
[2017-11-21] MEDS: HOME MED 1 EA UNK (Canagliflozin [Invokana] 300 MG) PO SCH (08:26)
[2017-11-21] MEDS: INSULIN DETEMIR 100 UNIT/1 ML INSULIN SQ SCH ×2 (08:27→22:24)
[2017-11-21] MEDS: SERTRALINE HCL 50 MG TAB PO SCH (09:00)
[2017-11-21] MEDS: hydroCHLOROthiazide 25 MG TAB PO SCH (09:00)
[2017-11-21] MEDS: GABAPENTIN 100 MG CAP PO SCH ×3 (09:00→22:23)
[2017-11-21] MEDS: SERTRALINE HCL 100 MG TAB PO SCH (09:00)
[2017-11-21] MEDS ORDERED: PROPOFOL 200 MG/20 ML VIAL IV ONE (09:04)
[2017-11-21] MEDS ORDERED: FENTANYL CITR 100 MCG/2 ML ONE (09:05)
[2017-11-21] MEDS ORDERED: LIDOCAINE 2% MPF 5 ML VIAL ONE (09:05)
[2017-11-21] MEDS ORDERED: MIDAZOLAM HCL 2 MG/2 ML INJ ONE (09:05)
[2017-11-21] MEDS ORDERED: ONDANSETRON HCL 40 MG/20 ML VIAL ONE (09:07)
[2017-11-21] MEDS ORDERED: NA CHLORIDE 0.9% 1,000 ML ONE (09:11)
[2017-11-21] MEDS ORDERED: COLLAGENASE 30 GM OINTMENT TOP ONE (09:14)
[2017-11-21 09:48] LABS: Potassium 4.4 mEq/L (3.6-5.0); Thyroid Stimulating Hormone 1.96 uIU/mL (0.34-5.60)
--- NOTE | 2017-11-21 09:55 | P.OP ---
Preoperative diagnosis: Abscess and cellulitis Right foot Postoperative diagnosis: same Primary procedure: I and D and Debridement Right foot abscess Anesthesia: gen Estimated blood loss: min Specimen: pus Findings: as above Complications: None Transferred to: Recovery Room Condition: Good
[2017-11-21 10:00] LABS: A1c Component 1.14 mg/dL; Hemoglobin A1c 9.9 % (4-6.0)
--- NOTE | 2017-11-21 11:42 | OP ---
Date of Procedure: 11/21/2017 Surgeon: Trevin Wu MD Preoperative Diagnosis: Right foot abscess and cellulitis. Postoperative Diagnosis: Right foot abscess and cellulitis. Procedures: Incision, drainage, and debridement of right foot abscess. Estimated Blood Loss: Minimal. Specimen: Pus. Findings: As above. Anesthesia: General. Complications: None. Disposition: The patient tolerated the procedure in stable condition and taken to Recovery in good g eneral condition. Procedure In Detail: The patient was brought to the OR and placed in supine position. General anest hesia was begun. The patient was prepped and draped in usual sterile fashion. Marcaine 0.5% was inf iltrated locally. Then, 15-blade, iris scissors, and tenotomy was used to debride this wound abscess approximately 3 x 4 cm. There was pus underneath it. Cultures were done. There were 2 areas that penetrated the dermis and appeared might have been a spider bite and there was some necrotic fibrin, which was debrided. Wound irrigated. Bleeding controlled with cautery. Collagenase dressing was ap plied. The patient tolerated the procedure in stable condition and taken to Recovery in good general conditi on. /MODL Voice ID: [id number] Report ID: [id number]
--- NOTE | 2017-11-21 12:55 | P.PN ---
Subjective Date of Service: 11/21/17 Primary Care Provider: unknown Chief Complaint: Cellulitis, lymphangitis right lower ext Subjective: Doing well Physical Examination - Vital Signs Temperature: 97.8 F Blood Pressure: 151/87 Pulse: 71 Respirations: 16 Pulse Ox (%): 97 - Physical Exam General: Alert, In no apparent distress, Oriented x3, Cooperative HEENT: Atraumatic Neck: Supple Respiratory: Clear to auscultation bilaterally, Normal air movement Cardiovascular: Normal pulses, Regular rate/rhythm Gastrointestinal: Normal bowel sounds, Soft and benign, Non-distended, No tenderness, No masses, No rebound, No guarding Musculoskeletal: No erythema, No tenderness, No warmth Integumentary: No erythema, No warmth, No cyanosis, Tenderness/swelling (Less erythema noted to the right foot.) Neurological: Normal speech, Normal strength at 5/5 x4 extr, Normal tone, Normal affect - Studies Medications List Reviewed: Yes Assessment & Plan - Problems (Diagnosis) (1) Obesity Current Visit: Yes Status: Chronic Plan: Will address lifestyle modification education. Qualifiers: Obesity type: due to excess calories Obesity classification: adult class 3 (BMI >= 40) Serious obesity comorbidity presence: with serious comorbidity Body mass index: BMI 40.0-44.9 Qualified Code(s): E66.01 - Morbid (severe) obesity due to excess calories; Z68.41 - Body mass index (BMI) 40.0-44.9, adult (2) Diabetes mellitus Current Visit: Yes Status: Chronic Plan: Patient takes multiple medications at home. Will start basal insulin low dose. Will verify home medications. 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 Patient to be taken to the operating room today by surgery. Case discussed with surgery. Possible discharge in next 1-2 days. Qualifiers: Site of cellulitis of extremity: lower extremity Laterality: right (4) Hypertension Current Visit: Yes Status: Chronic Plan: Will start low-dose KAYY-inhibitor. Qualifiers: Hypertension type: essential hypertension Qualified Code(s): I10 - Essential (primary) hypertension (5) Lymphangitis Onset Date: 11/18/17 Current Visit: Yes Status: Acute Plan: Continue as above. Discharge Plan: Home Plan to discharge in: 24 Hours - Code Status/Comfort Care Code Status Assessed: Yes Time Spent Managing Pts Care (In Minutes): 55
[2017-11-21] MEDS ORDERED: ENOXAPARIN 40 MG/0.4 ML SQ SCH (17:00)
[2017-11-21] MEDS: HYDROCODONE/APAP 5/325 MG TAB PO PRN ×2 (17:09→22:23)
[2017-11-21] MEDS: HYDRALAZINE HCL 20 MG/ML VIAL IV PRN (17:09)
[2017-11-21 22:59] VITALS: O2SAT 96
[2017-11-22] MEDS ORDERED: DIPHENHYDRAMINE 50 MG/ML VIAL IV ONE (00:27)
[2017-11-22] MEDS: MORPHINE 4 MG/ML SYR IV PRN (00:53)
[2017-11-22] MEDS: CEFAZOLIN/SWI 2gm 2 GM/20 ML SYR IV SCH ×2 (00:53→08:21)
[2017-11-22 05:11] LABS: Absolute Monocytes 0.8 K/uL (0.1-1.3); Absolute Neutrophil 7.9 K/uL (1.8-8.0); Basophils % 0.6 % (0-1.3); Eosinophils % 2.8 % (0-4.4); Hematocrit 36.4 % (39.6-49.0); Lymphocytes % 18.1 % (15.3-44.8); MCV 87.2 fL (80-100); MPV 9.1 fL (7.6-11.3); Monocytes % 7.4 % (3.3-12.3); RBC Red Blood Cell Count 4.17 M/uL (4.33-5.43)
[2017-11-22 05:17] LABS: Magnesium 1.7 mg/dL (1.8-2.5); Potassium 4.6 mEq/L (3.6-5.0)
[2017-11-22] MEDS: HYDROCODONE/APAP 5/325 MG TAB PO PRN (05:44)
[2017-11-22] MEDS ORDERED: MAGNESIUM SULFATE 1 gm IVPB 1 GM/100 ML BAG IV ONE (05:53)
[2017-11-22] MEDS ORDERED: PANTOPRAZOLE 40MG TABLET PO SCH (06:30)
[2017-11-22] MEDS: HOME MED 1 EA UNK (Canagliflozin [Invokana] 300 MG) PO SCH (08:16)
[2017-11-22] MEDS: INSULIN -REGULAR HUMAN 50 UNIT/0.5 ML ML SQ SCH ×2 (08:20→11:29)
[2017-11-22] MEDS: GABAPENTIN 100 MG CAP PO SCH (08:21)
[2017-11-22] MEDS: INSULIN LISPRO 100 UNIT/1 ML SQ SCH ×2 (08:21→11:30)
[2017-11-22] MEDS: hydroCHLOROthiazide 25 MG TAB PO SCH (08:21)
[2017-11-22] MEDS: SERTRALINE HCL 50 MG TAB PO SCH (08:22)
[2017-11-22] MEDS: SERTRALINE HCL 100 MG TAB PO SCH (08:22)
--- NOTE | 2017-11-22 08:26 | P.PN ---
Subjective Date of Service: 11/22/17 Primary Care Provider: unknown Chief Complaint: Cellulitis, lymphangitis right lower ext Subjective: Improving Physical Examination - Vital Signs Temperature: 98.9 F Blood Pressure: 140/73 Pulse: 70 Respirations: 16 Pulse Ox (%): 98 - Physical Exam General: Alert, In no apparent distress, Oriented x3, Cooperative HEENT: Atraumatic Neck: Supple Respiratory: Clear to auscultation bilaterally, Normal air movement Cardiovascular: Normal pulses, Regular rate/rhythm Gastrointestinal: Normal bowel sounds, Soft and benign, Non-distended, No tenderness, No masses, No rebound, No guarding Musculoskeletal: No warmth Integumentary: Other (Bandage to the right foot) Neurological: Normal speech, Normal strength at 5/5 x4 extr, Normal tone, Normal affect - Studies Medications List Reviewed: Yes Assessment & Plan - Problems (Diagnosis) (1) Obesity Current Visit: Yes Status: Chronic Plan: Will continue to address lifestyle modification education. Qualifiers: Obesity type: due to excess calories Obesity classification: adult class 3 (BMI >= 40) Serious obesity comorbidity presence: with serious comorbidity Body mass index: BMI 40.0-44.9 Qualified Code(s): E66.01 - Morbid (severe) obesity due to excess calories; Z68.41 - Body mass index (BMI) 40.0-44.9, adult (2) Diabetes mellitus Current Visit: Yes Status: Chronic Plan: Patient takes multiple medications at home. Patient started on the low-dose Levemir. Will continue to monitor and adjust appropriately. Qualifiers: Diabetes mellitus type: type 2 Diabetes mellitus buttermaker continuous churn insulin use: with buttermaker continuous churn use Diabetes mellitus complication status: with skin complications Diabetes mellitus complication detail: with other skin complication Qualified Code(s): E11.628 - Type 2 diabetes mellitus with other skin complications; Z79.4 - terminal system operator (current) use of insulin (3) Cellulitis Onset Date: 11/18/17 Current Visit: Yes Status: Acute Plan: Patient had debridement yesterday. Will discuss with surgery about the plan of care. Possible discharge soon. Wound cultures positive for Staph aureus. Patient will need oral antibiotic therapy and close follow up with wound care. Qualifiers: Site of cellulitis of extremity: lower extremity Laterality: right (4) Hypertension Current Visit: Yes Status: Chronic Plan: Will continue to monitor and adjust medication. Qualifiers: Hypertension type: essential hypertension Qualified Code(s): I10 - Essential (primary) hypertension (5) Lymphangitis Onset Date: 11/18/17 Current Visit: Yes Status: Acute Plan: Continue as above. (6) Obstructive sleep apnea Current Visit: Yes Status: Suspected Plan: Will recommend sleep study as an outpatient to further evaluate and treat. Discharge Plan: Home Plan to discharge in: 24 Hours Time Spent Managing Pts Care (In Minutes): 55
[2017-11-22] MEDS ORDERED: LISINOPRIL 10 MG TAB PO SCH (09:00)
[2017-11-22] MEDS: INSULIN DETEMIR 100 UNIT/1 ML INSULIN SQ SCH (09:00)
--- NOTE | 2017-11-22 09:46 | P.DS ---
Admission Date: 11/17/17 Discharge Date: 11/22/17 Primary Care Provider: NOEMI Goldstein Disposition: ROUTINE DISCHARGE Discharge Condition: FAIR Reason for Admission: Cellulitis, lymphangitis right lower ext Consultations: Surgery-Dr. Wu Procedures: Surgery: Date of Procedure: 11/21/2017 Surgeon: Trevin Wu MD Preoperative Diagnosis: Right foot abscess and cellulitis. Postoperative Diagnosis: Right foot abscess and cellulitis. Procedures: Incision, drainage, and debridement of right foot abscess. Estimated Blood Loss: Minimal. Specimen: Pus. Findings: As above. Anesthesia: General. Complications: None. Pathology: Right foot abscess, debridement tissue - Problems (1) Obesity Current Visit: Yes Status: Chronic Qualifiers: Obesity type: due to excess calories Obesity classification: adult class 3 (BMI >= 40) Serious obesity comorbidity presence: with serious comorbidity Body mass index: BMI 40.0-44.9 Qualified Code(s): E66.01 - Morbid (severe) obesity due to excess calories; Z68.41 - Body mass index (BMI) 40.0-44.9, adult (2) Diabetes mellitus Current Visit: Yes Status: Chronic Qualifiers: Diabetes mellitus type: type 2 Diabetes mellitus senior living insulin use: with termite treater use Diabetes mellitus complication status: with skin complications Diabetes mellitus complication detail: with other skin complication Qualified Code(s): E11.628 - Type 2 diabetes mellitus with other skin complications; Z79.4 - group home (current) use of insulin (3) Cellulitis Onset Date: 11/18/17 Current Visit: Yes Status: Acute Qualifiers: Site of cellulitis of extremity: lower extremity Laterality: right (4) Hypertension Current Visit: Yes Status: Chronic Qualifiers: Hypertension type: essential hypertension Qualified Code(s): I10 - Essential (primary) hypertension (5) Lymphangitis Onset Date: 11/18/17 Current Visit: Yes Status: Acute (6) Obstructive sleep apnea Current Visit: Yes Status: Suspected (7) Hyponatremia Current Visit: Yes Status: Acute (8) Depression Current Visit: Yes Status: Chronic Qualifiers: Depression Type: unspecified Qualified Code(s): F32.9 - Major depressive disorder, single episode, unspecified (9) DM neuropathy, type II diabetes mellitus Current Visit: Yes Status: Chronic Qualifiers: Diabetes mellitus senior living insulin use: with termite treater use Qualified Code( s): E11.40 - Type 2 diabetes mellitus with diabetic neuropathy, unspecified; Z79.4 - long term care pharmacist (current) use of insulin Brief History of Present Illness: 47 yo HM presented to the ER with cellulitis and abscess to the right foot. He has DM, HTN. He was evaluated in the ER and admitted for treatment. Hospital Course: Patient presented with right foot cellulitis and abscess. X-ray showed no osteomyelitis. Patient evaluated by surgery. Patient receive IV antibiotic therapy. Surgery recommended debridement. The patient eventually had incision , drainage and debridement. Patient tolerated procedure well. Wound culture was positive for Staph aureus. At discharge patient will continue with wound care as per surgery. The patient will need a follow up with surgery in 1 week to follow up his care. At discharge he will continue with Levaquin 750 mg 1 pill daily for 10 days. Patient will also be provided medication for pain. Patient has diabetes. Hemoglobin A1c 9.9. Patient will continue with his current regimen of insulin therapy including Levemir 100 mg subcu twice daily and NovoLog 40 units subcu 3 times a day. Patient also takes Invokana, rulicity , and Metformin. Recommendation is to maintain blood sugars less 140 fasting and less than 200 after meals. Further adjustment can be done by his PCP. Patient may need endocrinology evaluation as an outpatient to continue his care. Patient has hypertension. Patient will continue with his medication- hydrochlorothiazide 25 mg daily. New medication includes lisinopril 10 mg 1 pill daily. Recommendation is to maintain blood pressures less 150/80. Further adjustment can be done by his PCP. Patient may have underlying obstructive sleep apnea. Recommendations for the patient to have a sleep study done as an outpatient to further evaluate. Patient has been getting his care in [facility]. Patient has [facility] insurance. Recommendation is for the patient to follow up in [facility]. Patient may need to continued in [facility] to continue with his insurance. This was addressed in detail. Patient may have underlying diabetic neuropathy. He is to monitor his feet daily. Patient will continue with Neurontin 100 mg 1 pill 3 times a day. At limits supply of tramadol 50 mg 1 pill 3 times a day as needed for pain will be provided. Patient has depression. Patient will continue with Zoloft 100 mg daily. Vital Signs/Physical Exam: Temp Pulse Resp BP Pulse Ox 98.9 F 70 16 140/73 98 11/22/17 08:26 11/22/17 08:26 11/22/17 08:26 11/22/17 08:26 11/22/17 08:26 General: Alert, In no apparent distress, Oriented x3, Cooperative HEENT: Atraumatic Neck: Supple Respiratory: Clear to auscultation bilaterally, Normal air movement Cardiovascular: Normal pulses, Regular rate/rhythm Gastrointestinal: Normal bowel sounds, Soft and benign, Non-distended, No masses , No rebound, No guarding Integumentary: Other (Right foot bandaged.) Neurological: Normal speech, Normal strength at 5/5 x4 extr, Normal tone, Normal affect Lymphatics: No axilla or inguinal lymphadenopathy Laboratory Data at Discharge: WBC 11.1 K/uL (4.3-10.9) H 11/22/17 04:37 Hgb 12.5 g/dL (13.6-17.9) L 11/22/17 04:37 Hct 36.4 % (39.6-49.0) L 11/22/17 04:37 Plt Count 263 K/uL (152-406) 11/22/17 04:37 Sodium 133 mEq/L (135-145) L 11/22/17 04:37 Potassium 4.6 mEq/L (3.6-5.0) 11/22/17 04:37 BUN 17 mg/dL (6-20) 11/22/17 04:37 Creatinine 1.18 mg/dL (0.61-1.24) 11/22/17 04:37 Glucose 239 mg/dL (65-120) H 11/22/17 04:37 Magnesium 1.7 mg/dL (1.8-2.5) L 11/22/17 04:37 Triglycerides 80 mg/dL (35-160) 11/21/17 08:12 Cholesterol 122 mg/dL (<200) 11/21/17 08:12 HDL Cholesterol 36 mg/dL (27-67) 11/21/17 08:12 Cholesterol/HDL Ratio 3.39 11/21/17 08:12 Home Medications: Metformin HCl 500 mg PO BID 04/14/17 Sertraline [Zoloft*] 150 mg PO DAILY 04/14/17 hydroCHLOROthiazide [Hydrochlorothiazide] 25 mg PO DAILY 04/14/17 Dulaglutide [Trulicity] 0.75 mg SQ EVERY 7TH DAY 11/17/17 Gabapentin [Neurontin*] 100 mg PO TID 11/17/17 levoFLOXacin [Levaquin*] 750 mg PO DAILY #10 tab 11/19/17 Insulin Aspart [Novolog Flexpen] 40 units SQ TID #1 insuln.pen 11/22/17 Insulin Detemir [Levemir Flextouch] 100 unit SQ BID #1 insuln.pen 11/22/17 Lisinopril [Prinivil*] 10 mg PO DAILY #30 tab 11/22/17 Tramadol HCl [Ultram] 50 mg PO TID PRN #15 tablet 11/22/17 New Medications: Insulin Aspart [Novolog Flexpen] 40 units SQ TID #1 insuln.pen Insulin Detemir [Levemir Flextouch] 100 unit SQ BID #1 insuln.pen levoFLOXacin [Levaquin*] 750 mg PO DAILY #10 tab Lisinopril [Prinivil*] 10 mg PO DAILY #30 tab Tramadol HCl [Ultram] 50 mg PO TID PRN #15 tablet PRN Reason: Pain Patient Discharge Instructions: 1. Patient will need a follow up with his PCP in 1 week to follow up this hospitalization. 2. Patient presented with right foot cellulitis and abscess. X-ray showed no osteomyelitis. Patient evaluated by surgery. The patient eventually had incision, drainage and debridement of the wound. Patient tolerated procedure well. Wound culture was positive for Staph aureus. At discharge patient will continue with wound care as per surgery. The patient will need a follow up with surgery in 1 week to follow up his care. At discharge he will continue with Levaquin 750 mg 1 pill daily for 10 days. Patient will also be provided medication for pain. 3. Patient has diabetes. Hemoglobin A1c 9.9. Patient will continue with his current regimen of insulin therapy including Levemir 100 mg subcu twice daily and NovoLog 40 units subcu 3 times a day. Patient also takes Invokana, rulicity, and Metformin. Recommendation is to maintain blood sugars less 140 fasting and less than 200 after meals. Further adjustment can be done by his PCP. Patient may need endocrinology evaluation as an outpatient to continue his care. 4. Patient has hypertension. Patient will continue with his medication- hydrochlorothiazide 25 mg daily. New medication includes lisinopril 10 mg 1 pill daily. Recommendation is to maintain blood pressures less 150/80. Further adjustment can be done by his PCP. 5. Patient may have underlying obstructive sleep apnea. Recommendations for the patient to have a sleep study done as an outpatient to further evaluate. 6. Patient may have underlying diabetic neuropathy. He is to monitor his feet daily. Patient will continue with Neurontin 100 mg 1 pill 3 times a day. At limits supply of tramadol 50 mg 1 pill 3 times a day as needed for pain will be provided. 7. Patient has depression. Patient will continue with Zoloft 100 mg daily. 8. Patient will need to follow up with his team of physicians in [facility]. Diet: Regular Activity: Ad ania Time spent managing pt's care (in minutes): 55
[2017-11-22 13:09] VITALS: BP 145/77; TEMP 97.5
--- NOTE | 2017-11-22 13:55 | PN ---
Date of Progress Note: 11/22/2017 Subjective: The patient is awake, alert. No complaints. Objective: Vital Signs: Stable. Afebrile. Extremities: Dressing clean, dry, and intact. Assessment: Status post I and D and debridement, right foot abscess. Recommendations: The patient is cleared for discharge on oral antibiotics and wound care as ordered. [facility]. /OSMEL Voice ID: [id number] Report ID: [id number]
== END 2017-11-22 12:43 | disposition home or self-care (01) | DRG 603 ==
LOC: ER 09:55 → ERHOLD 13:03 → 2ND 16:03
PROVIDERS: ADMIT Family Medicine; ATTEND Family Medicine
PROC: 0HBMXZZ Excision of Right Foot Skin, External Approach (ICD-10-PCS; principal; 2017-11-21 11:00)
DX: L02.611 Cutaneous abscess of right foot (principal); L03.115 Cellulitis of right lower limb; Z68.41 Body mass index [BMI] 40.0-44.9, adult; B95.61 Methicillin susceptible Staphylococcus aureus infection as the cause of diseases classified elsewhere; E66.01 Morbid (severe) obesity due to excess calories; E11.628 Type 2 diabetes mellitus with other skin complications; Z79.4 Long term (current) use of insulin; E11.40 Type 2 diabetes mellitus with diabetic neuropathy, unspecified; I10 Essential (primary) hypertension; G47.33 Obstructive sleep apnea (adult) (pediatric); E11.65 Type 2 diabetes mellitus with hyperglycemia
CPT/HCPCS: 36415; 80048; 80061; 80202; 81003; 82010; 82962; 83036; 83735; 84145; 84439; 84443; 85025; 87040; 87070; 87077; 87186; 87205; 88304; 88305; 94760; 96361; 96365; 96372; 99285; J0360; J0690; J1650; J2250; J2405; J2550; J3010; J3370; J3475; J3590; J7030

== ENCOUNTER 2018-07-26 19:32 | Emergency (ER) | payer SELFPAY ==
--- OUTSIDE RECORDS SUMMARY | 2018-07-26 19:33 | XMS REPORT ---
:1970 [facility] Address [address] [place] [address] Dr. Pugh [address] [place] [id number] Care Team Providers Name Role Phone Unavailable Unavailable Unavailable Problems This patient has no known problems. Allergies, Adverse Reactions, Alerts This patient has no known allergies or adverse reactions. Medications This patient has no known medications.
[2018-07-26] MEDS ORDERED: INSULIN -REGULAR HUMAN 50 UNIT/0.5 ML ML ONE (20:03)
[2018-07-26] MEDS ORDERED: NA CHLORIDE 0.9% 1,000 ML ONE ×2 (20:03→20:49)
[2018-07-26 20:12] LABS: Absolute Lymphocytes (CBC) 1.5 K/uL (0.7-4.9); Absolute Monocytes 0.5 K/uL (0.1-1.3); Absolute Neutrophil 6.9 K/uL (1.8-8.0); Basophils % 0.7 % (0-1.3); Eosinophils % 2.1 % (0-4.4); Hematocrit 46.6 % (39.6-49.0); Lymphocytes % 16.6 % (15.3-44.8); MPV 10.3 fL (7.6-11.3); RBC Red Blood Cell Count 5.45 M/uL (4.33-5.43)
[2018-07-26 20:15] LABS: BUN Blood Urea Nitrogen 26 mg/dL (7-18); Bicarbonate 30 mmol/L (21-32); Potassium 4.2 mmol/L (3.5-5.1); Sodium Level 132 mmol/L (136-145)
[2018-07-26 20:17] LABS: Glucose Level 491 mg/dL (74-106)
[2018-07-26 20:40] LABS: Urine Blood 1+ (NEG); Urine Glucose 2+ (NEG); Urine Protein 1+ (NEG); Urine Specific Gravity <1.005 (1.005-1.030)
[2018-07-26 20:40] LABS: Urine Bacteria <20 /HPF (NONE SEEN); Urine Culture Reflex Order NOT NEEDED
--- NOTE | 2018-07-26 21:38 | EDPHYS ---
Physician Documentation [facility] Name: Lion Pickard Age: 48 yrs Sex: Male : 1970 Arrival Date: 07/26/2018 Time: 19:33 Bed 19 Private MD: ED Physician Mohsen English HPI: 07/26 19:42 This 48 yrs old Male presents to ER via EMS with complaints of High Blood rn Sugar. 19:42 The patient or guardian reports hyperglycemia. Onset: The symptoms/episode rn began/occurred at an unknown time. Associated signs and symptoms: Pertinent positives: polydipsia. Current symptoms: In the emergency department the patient's symptoms are unchanged from the initial presentation. The patient has experienced similar episodes in the past. The patient has not recently seen a physician. Reports ran out of insulin today, has been feeling weak, decreased urinary output over last week or so, + thirsty, states insulin was for 6 months, can't afford his prescriptions. No fever. + nausea. NO chest pain/abd pain. . Historical: - Allergies: 19:46 Vancomycin; rr5 - Home Meds: 19:46 lisinopril 20 mg Oral tab [Active]; metformin 1,000 mg Oral tab 1 tab 2 times per day rr5 [Active]; carvedilol 12.5 mg oral tab [Active]; atorvastatin 40 mg oral tab [Active]; hydrochlorothiazide 25 mg Oral tab [Active]; tramadol 50 mg Oral tab [Active]; amlodipine 5 mg tab [Active]; 19:48 Novolog 100 unit/mL Sub-Q soln [Active]; Lantus 100 unit/mL Sub-Q soln [Active]; rr5 - PMHx: 19:46 Diabetes - IDDM; Hernia; Hypertension; neuropathy; rr5 - PSHx: 19:46 big and small pinky toe; rr5 - Immunization history:: Adult Immunizations up to date. - Social history:: Smoking status: Patient/guardian denies using tobacco, Patient/guardian denies using alcohol, street drugs. - Family history:: not pertinent. - Ebola Screening: : Patient negative for fever greater than or equal to 101.5 degrees Fahrenheit, and additional compatible Ebola Virus Disease symptoms Patient denies exposure to infectious person Patient denies travel to an Ebola-affected area in the 21 days before illness onset. - Hospitalizations: : No recent hospitalization is reported. ROS: 19:42 Constitutional: Negative for fever, chills, and weight loss, Eyes: Negative for injury, rn pain, redness, and discharge, Neck: Negative for injury, pain, and swelling, Cardiovascular: Negative for chest pain, palpitations, and edema, Respiratory: Negative for shortness of breath, cough, wheezing, and pleuritic chest pain, Abdomen/GI: + nausea, neg for abd pain Back: Negative for injury and pain, MS/Extremity: Negative for injury and deformity, Skin: Negative for injury, rash, and discoloration, Neuro: + generalized weakness Exam: 19:42 Constitutional: This is a well developed, well nourished patient who is awake, alert, rn and in no acute distress. Head/Face: Normocephalic, atraumatic. Eyes: Pupils equal round and reactive to light, extra-ocular motions intact. Lids and lashes normal. Conjunctiva and sclera are non-icteric and not injected. Cornea within normal limits. Periorbital areas with no swelling, redness, or edema. ENT: dry MM Cardiovascular: Regular rate and rhythm. No pulse deficits. Respiratory: Lungs have equal breath sounds bilaterally, clear to auscultation. No increased work of breathing, no retractions or nasal flaring. Abdomen/GI: soft, non-tender Skin: Warm, dry MS/ Extremity: Pulses equal, no cyanosis. Neurovascular intact. Full, normal range of motion. Equal circumference. Neuro: Awake and alert, GCS 15, oriented to person, place, time, and situation. Cranial nerves II-XII grossly intact. Motor strength 5/5 in all extremities. Sensory grossly intact. Cerebellar exam normal. Normal gait. Vital Signs: 19:35 BP 188 / 109; Pulse 93; Resp 18; Temp 98.1; Pulse Ox 99% ; Weight 134.72 kg; Height 5 rr5 ft. 8 in. (172.72 cm); Pain 0/10; 20:32 BP 136 / 77; Pulse 100; Resp 18 S; Pulse Ox 98% on R/A; jd3 21:42 BP 108 / 73; Pulse 80; Resp 17 S; Pulse Ox 100% on R/A; jd3 19:35 Body Mass Index 45.16 (134.72 kg, 172.72 cm) rr5 MDM: 19:33 Patient medically screened. rn 21:35 Differential diagnosis: DKA, hyperglycemia. Data reviewed: vital signs, nurses notes, furnace checker test result(s), and as a result, I will discharge patient. Counseling: I had a detailed discussion with the patient and/or guardian regarding: the historical points, exam findings, and any diagnostic results supporting the discharge/admit diagnosis, lab results, the need for outpatient follow up, to return to the emergency department if symptoms worsen or persist or if there are any questions or concerns that arise at home. Special discussion: I discussed with the patient/guardian in detail that at this point there is no indication for admission to the hospital. It is understood, however, that if the symptoms persist or worsen the patient needs to return immediately for re-evaluation. ED course: Had long conversation with patient, is in the unfortunate position that can't afford medication, has some oral hyperglycemic medication, was in [place] [employer] program and paid for everything, but moved here, lost gold card, and currently expects his indigent forms to clear this week. No need for emergent hospitalization today, feels better after fluids and insulin, and no resources in the ER to help this gentleman. Will dc home with return precautions.. 21:38 ED course: States has standing prescriptions at pharmacy.. rn 07/26 19:35 Order name: CBC with Diff; Complete Time: 20:28 rn 07/26 19:35 Order name: Basic Metabolic Panel; Complete Time: 20:28 rn 07/26 19:35 Order name: Urine Microscopic Only; Complete Time: 21:11 rn 07/26 19:35 Order name: Ketone, Serum; Complete Time: 20:28 rn 07/26 20:32 Order name: Urine Dipstick--Ancillary (enter results); Complete Time: 21:11 ar5 07/26 19:35 Order name: IV Start; Complete Time: 20:28 rn 07/26 19:35 Order name: Urine Dipstick-Ancillary (obtain specimen); Complete Time: 21: rn 07/26 19:35 Order name: Glucose Level; Complete Time: 21: rn 07/26 19:35 Order name: EKG - Nurse/Tech; Complete Time: 20:28 rn 07/26 19:35 Order name: EKG; Complete Time: 19:36 rn Administered Medications: 20:08 Drug: NS 0.9% 1000 ml Route: IV; Rate: 1000 ml; Site: right antecubital; rr5 21:54 Follow up: Response: No adverse reaction; IV Status: Completed infusion jd3 20:08 Drug: Insulin Regular Human 10 units {Co-Signature: london (Regulo Wright RN).} Route: rr5 Sub-Q; Site: right lower abdomen; 22:12 Follow up: Response: No adverse reaction jd3 20:10 Drug: Insulin Regular Human 10 units {Co-Signature: london (Regulo Wright RN).} Route: rr5 IVP; Site: right antecubital; 22:12 Follow up: Response: No adverse reaction jd3 20:43 Drug: NS 0.9% 1000 ml Route: IV; Rate: 1000 ml; Site: right antecubital; jd3 22:19 Follow up: Response: No adverse reaction; IV Status: Completed infusion jd3 Point of Care Testing: Blood Glucose: 19:35 Blood Glucose: 410 mg/dL; rr5 22:12 Blood Glucose: 239 mg/dL; jd3 Ranges: Critical Glucose Levels:Adult <50 mg/dl or >400 mg/dl <40 mg/dl or >180 mg/dl Disposition: 07/26/18 21:38 Discharged to Home. Impression: Hyperglycemia, unspecified, Dehydration. - Condition is Stable. - Discharge Instructions: Dehydration, Adult, Hyperglycemia, Blood Glucose Monitoring, Adult. - Medication Reconciliation Form, Thank You Letter, Antibiotic Education, Prescription Opioid Use form. - Follow up: Private Physician; When: As needed; Reason: Recheck today's complaints, Re-evaluation by your physician. - Problem is an ongoing problem. - Symptoms have improved. Signatures: Dispatcher [employer] EDMS Mohsen English MD MD rn Davies, Jonathon, RN RN jd3 Ceferino Smart RN RN rr5 Regulo Wright RN jd3 Corrections: (The following items were deleted from the chart) 22:19 21:38 07/26/2018 21:38 Discharged to Home. Impression: Hyperglycemia, unspecified; jd3 Dehydration. Condition is Stable. Forms are Medication Reconciliation Form, Thank You Letter, Antibiotic Education, Prescription Opioid Use. Follow up: Private Physician; When: As needed; Reason: Recheck today's complaints, Re-evaluation by your physician. Problem is an ongoing problem. Symptoms have improved. rn
--- NOTE | 2018-07-26 21:38 | ER ---
Nurse's Notes [facility] Name: Lion Pickard Age: 48 yrs Sex: Male : 1970 Arrival Date: 07/26/2018 Time: 19:33 Bed 19 Private MD: Diagnosis: Hyperglycemia, unspecified;Dehydration Presentation: 07/26 19:35 Presenting complaint: EMS states: having high blood sugar we checked resulted to rr5 526mg/dl. 19:35 Transition of care: patient was not received from another setting of care. Onset of rr5 symptoms was July 26, 2018. Risk Assessment: Do you want to hurt yourself or someone else? Patient reports no desire to harm self or others. Initial Sepsis Screen: Does the patient meet any 2 criteria? No. Patient's initial sepsis screen is negative. Does the patient have a suspected source of infection? No. Patient's initial sepsis screen is negative. Note I ran out of novolog and lantus that I am taking. I felt dizzy had one episode of vomiting and feeling weak as verbalized by patient. Care prior to arrival: None. 19:35 Method Of Arrival: EMS: [facility] rr5 19:35 Acuity: BATSHEVA 3 rr5 Historical: - Allergies: 19:46 Vancomycin; rr5 - Home Meds: 19:46 lisinopril 20 mg Oral tab [Active]; metformin 1,000 mg Oral tab 1 tab 2 times per day rr5 [Active]; carvedilol 12.5 mg oral tab [Active]; atorvastatin 40 mg oral tab [Active]; hydrochlorothiazide 25 mg Oral tab [Active]; tramadol 50 mg Oral tab [Active]; amlodipine 5 mg tab [Active]; 19:48 Novolog 100 unit/mL Sub-Q soln [Active]; Lantus 100 unit/mL Sub-Q soln [Active]; rr5 - PMHx: 19:46 Diabetes - IDDM; Hernia; Hypertension; neuropathy; rr5 - PSHx: 19:46 big and small pinky toe; rr5 - Immunization history:: Adult Immunizations up to date. - Social history:: Smoking status: Patient/guardian denies using tobacco, Patient/guardian denies using alcohol, street drugs. - Family history:: not pertinent. - Ebola Screening: : Patient negative for fever greater than or equal to 101.5 degrees Fahrenheit, and additional compatible Ebola Virus Disease symptoms Patient denies exposure to infectious person Patient denies travel to an Ebola-affected area in the 21 days before illness onset. - Hospitalizations: : No recent hospitalization is reported. Screenin:55 Abuse screen: Denies threats or abuse. Denies injuries from another. Nutritional rr5 screening: No deficits noted. Tuberculosis screening: No symptoms or risk factors identified. Fall Risk IV access (20 points). Total Alt[place]irano Fall Scale indicates No Risk (0-24 pts). Assessment: 20:24 General: Appears in no apparent distress. uncomfortable, Behavior is calm, cooperative, jd3 appropriate for age, Reports high blood sugar. Pain: Denies pain. Neuro: Level of Consciousness is awake, alert, obeys commands, Oriented to person, place, time, situation, Appropriate for age. Cardiovascular: Denies chest pain, Capillary refill < 3 seconds Patient's skin is warm and dry. Respiratory: Airway is patent Respiratory effort is even, unlabored, Respiratory pattern is regular, symmetrical, Denies shortness of breath. GI: Abdomen is round non-distended. : No signs and/or symptoms were reported regarding the genitourinary system. EENT: No signs and/or symptoms were reported regarding the EENT system. Derm: Skin is intact, Skin is dry, Skin is normal, Skin temperature is warm. Musculoskeletal: Circulation, motion, and sensation intact. Range of motion: intact in all extremities. 21:42 Reassessment: Patient appears in no apparent distress at this time. Patient and/or jd3 family updated on plan of care and expected duration. Pain level reassessed. Patient is alert, oriented x 3, equal unlabored respirations, skin warm/dry/pink. 21:54 Reassessment: awaiting IV fluids to infuse before discharge. jd3 Vital Signs: 19:35 BP 188 / 109; Pulse 93; Resp 18; Temp 98.1; Pulse Ox 99% ; Weight 134.72 kg; Height 5 rr5 ft. 8 in. (172.72 cm); Pain 0/10; 20:32 BP 136 / 77; Pulse 100; Resp 18 S; Pulse Ox 98% on R/A; jd3 21:42 BP 108 / 73; Pulse 80; Resp 17 S; Pulse Ox 100% on R/A; jd3 19:35 Body Mass Index 45.16 (134.72 kg, 172.72 cm) rr5 ED Course: 19:33 Patient arrived in ED. rn 19:33 Mohsen English MD is Attending Physician. rn 19:39 Triage completed. rr5 19:47 Arm band placed on. EKG completed in triage. Results shown to MD. rr5 19:50 Patient has correct armband on for positive identification. Placed in gown. Bed in low rr5 position. Call light in reach. Side rails up X2. clinical research monitor on. Pulse ox on. NIBP on. 19:50 Inserted saline lock: 20 gauge in right antecubital area, using aseptic technique. rr5 ,using aseptic technique. by tomography technologist interlochen Blood collected. 20:17 Notified ED physician of a critical lab result(s). Glucose of 491 Dr English notified. bb 20:22 Regulo Wright, RN is Primary Nurse. jd3 22:18 No provider procedures requiring assistance completed. IV discontinued, intact, jd3 bleeding controlled, No redness/swelling at site. Pressure dressing applied. Administered Medications: 20:08 Drug: NS 0.9% 1000 ml Route: IV; Rate: 1000 ml; Site: right antecubital; rr5 21:54 Follow up: Response: No adverse reaction; IV Status: Completed infusion jd3 20:08 Drug: Insulin Regular Human 10 units {Co-Signature: london (Regulo Wright RN).} Route: rr5 Sub-Q; Site: right lower abdomen; 22:12 Follow up: Response: No adverse reaction jd3 20:10 Drug: Insulin Regular Human 10 units {Co-Signature: london (Regulo Wright RN).} Route: rr5 IVP; Site: right antecubital; 22:12 Follow up: Response: No adverse reaction jd3 20:43 Drug: NS 0.9% 1000 ml Route: IV; Rate: 1000 ml; Site: right antecubital; jd3 22:19 Follow up: Response: No adverse reaction; IV Status: Completed infusion jd3 Point of Care Testing: Blood Glucose: 19:35 Blood Glucose: 410 mg/dL; rr5 22:12 Blood Glucose: 239 mg/dL; jd3 Ranges: Outcome: 21:38 Discharge ordered by . rn 22:18 Discharged to home ambulatory, with family. jd3 22:18 Condition: stable 22:18 Discharge instructions given to patient, family, Instructed on discharge instructions, follow up and referral plans. Demonstrated understanding of instructions, follow-up care. 22:19 Patient left the ED. jd3 Signatures: Joycelyn Taylor RN RN bb Mohsen English MD MD rn Davies, Jonathon, RN RN jd3 Ceferino Smart RN RN rr5 Regulo bellad3
[2018-07-26 22:24] VITALS: TEMP 98.1
[2018-07-26 22:27] VITALS: BP 108/73; O2SAT 100
--- NOTE | 2018-07-27 07:02 | EKG ---
Test Date: 2018-07-26 Test Time: 20:05:57 Parakeet Raiser: RICKY MEASUREMENT RESULTS: Intervals: Rate: 91 [place]: 162 QRSD: 88 QT: 352 QTc: 432 [place]: P: 43 TX: 162 QRS: -11 T: 17 INTERPRETIVE STATEMENTS: Normal sinus rhythm Normal ECG Compared to ECG 04/14/2017 19:04:17 No significant changes Electronically Signed On 07-27-18 07:01:37 UPPER AND BOTTOM LACER HAND by Khanh Christopher
== END 2018-07-26 22:19 | disposition home or self-care (01) ==
LOC: ER 19:32
DX: E86.0 Dehydration (principal); I10 Essential (primary) hypertension; Z88.1 Allergy status to other antibiotic agents
CPT/HCPCS: 36415; 80048; 81003; 81015; 82010; 82962; 85025; 93005; 96361; 96372; 96374; 99284; J7030

== ENCOUNTER 2018-08-23 23:31 | Emergency (ER) | payer SELFPAY ==
--- OUTSIDE RECORDS SUMMARY | 2018-08-23 23:33 | XMS REPORT ---
:1970 [facility] [address] [place] [address] Care Team Providers Name Role Phone Unavailable Unavailable Unavailable Problems This patient has no known problems. Allergies, Adverse Reactions, Alerts This patient has no known allergies or adverse reactions. Medications This patient has no known medications.
[2018-08-24] MEDS ORDERED: NA CHLORIDE 0.9% 1,000 ML ONE ×2 (00:12→02:39)
[2018-08-24] MEDS ORDERED: MEPERIDINE HCL 25 MG/0.5 ML ONE (00:12)
[2018-08-24] MEDS ORDERED: ONDANSETRON 4 MG/2 ML VIAL ONE (00:15)
[2018-08-24] MEDS ORDERED: DIPHENHYDRAMINE 50 MG/ML VIAL ONE (00:38)
[2018-08-24 00:56] LABS: Absolute Lymphocytes (CBC) 1.2 K/uL (0.7-4.9); Absolute Monocytes 0.5 K/uL (0.1-1.3); Absolute Neutrophil 5.9 K/uL (1.8-8.0); Basophils % 0.6 % (0-1.3); Eosinophils % 4.1 % (0-4.4); Hematocrit 43.3 % (39.6-49.0); Lymphocytes % 15.1 % (15.3-44.8); MPV 10.5 fL (7.6-11.3); Monocytes % 6.8 % (3.3-12.3); RBC Red Blood Cell Count 4.95 M/uL (4.33-5.43)
[2018-08-24 01:56] LABS: BUN Blood Urea Nitrogen 18 mg/dL (7-18); Bicarbonate 26 mmol/L (21-32); Glucose Level 528 mg/dL (74-106); Potassium 3.8 mmol/L (3.5-5.1); Sodium Level 137 mmol/L (136-145)
[2018-08-24] MEDS ORDERED: INSULIN -REGULAR HUMAN 50 UNIT/0.5 ML ML ONE (02:39)
--- NOTE | 2018-08-24 02:52 | ER ---
Nurse's Notes [facility] Name: Lion Pickard Age: 48 yrs Sex: Male : 1970 Arrival Date: 08/23/2018 Time: 23:32 Bed 5 Private MD: Diagnosis: Headache;Hyperglycemia, unspecified;Dehydration Presentation: 08/23 23:46 Presenting complaint: Patient states: BP at home was 197/102, reports headache, nausea, tl2 vomiting, and congestion since this morning. Transition of care: patient was not received from another setting of care. Onset of symptoms was August 23, 2018. Risk Assessment: Do you want to hurt yourself or someone else? Patient reports no desire to harm self or others. Initial Sepsis Screen: Does the patient meet any 2 criteria? No. Patient's initial sepsis screen is negative. Does the patient have a suspected source of infection? No. Patient's initial sepsis screen is negative. Care prior to arrival: None. 23:46 Method Of Arrival: Wheelchair tl2 23:46 Acuity: BATSHEVA 3 tl2 Historical: - Allergies: 23:47 Vancomycin; tl2 23:47 IV contrast; tl2 - Home Meds: 23:47 amlodipine 5 mg tab [Active]; atorvastatin 40 mg Oral tab [Active]; carvedilol 12.5 mg tl2 Oral tab [Active]; hydrochlorothiazide 25 mg Oral tab [Active]; Lantus 100 unit/mL Sub-Q soln [Active]; lisinopril 20 mg Oral tab [Active]; metformin 1,000 mg Oral tab 1 tab 2 times per day [Active]; Novolog 100 unit/mL Sub-Q soln [Active]; tramadol 50 mg Oral tab [Active]; - PMHx: 23:47 Diabetes - IDDM; Hernia; Hypertension; neuropathy; tl2 - Immunization history:: Adult Immunizations up to date. - Social history:: Smoking status: Patient/guardian denies using tobacco. - Ebola Screening: : No symptoms or risks identified at this time. - Family history:: not pertinent. - Hospitalizations: : No recent hospitalization is reported. Screenin/21 00:18 Abuse screen: Denies threats or abuse. Denies injuries from another. Nutritional lp1 screening: No deficits noted. Tuberculosis screening: No symptoms or risk factors identified. Fall Risk None identified. Assessment: 00:16 General: Appears in no apparent distress. Behavior is appropriate for age. Pain: lp1 Complains of pain in head Pain currently is 6 out of 10 on a pain scale. Quality of pain is described as aching. Neuro: Level of Consciousness is awake, alert, obeys commands, Oriented to person, place, time, situation, Reports dizziness, when moving headache. Cardiovascular: Patient's skin is warm and dry. Respiratory: Respiratory effort is even, unlabored, Breath sounds are clear bilaterally. GI: Abdomen is non-distended, Reports nausea, vomiting. : No signs and/or symptoms were reported regarding the genitourinary system. EENT: Reports nasal congestion. Derm: Skin is intact, Skin is dry, Skin is normal. Musculoskeletal: No deficits noted. 00:25 Reassessment: Called for patient complaint of itching to generalized body; No rash lp1 noted; Provider notified; Verbal order of Benadryl 50mg IV; Patient states first time with Demerol administration. 01:00 Reassessment: Patient appears in no apparent distress at this time. Patient resting, lp1 eyes closed; States relief from itching Patient states symptoms have improved. 01:00 Respiratory: Respiratory effort is even, unlabored, Breath sounds are clear bilaterally.lp1 02:15 Reassessment: Patient appears in no apparent distress at this time. Patient is alert, lp1 oriented x 3, equal unlabored respirations, skin warm/dry/pink. Patient tolerating PO fluids, drinking water at this time Patient states feeling better. Vital Signs: 08/23 23:47 BP 157 / 93; Pulse 100; Resp 18; Temp 98(O); Pulse Ox 95% on R/A; Weight 144.7 kg; tl2 Height 5 ft. 8 in. (172.72 cm); Pain 9/10; 08/24 01:00 BP 138 / 77; Pulse 90; Resp 18; Pulse Ox 97% on R/A; lp1 02:00 BP 147 / 88; Pulse 77; Resp 18; Pulse Ox 96% on R/A; lp1 02:37 BP 147 / 79; Pulse 77; Resp 18; Pulse Ox 98% on R/A; lp1 03:24 BP 134 / 70; Pulse 73; Resp 16; Pulse Ox 96% on R/A; Pain 0/10; lp1 08/23 23:47 Body Mass Index 48.50 (144.70 kg, 172.72 cm) tl2 ED Course: 08/23 23:32 Patient arrived in ED. am2 23:36 Mohsen English MD is Attending Physician. rn 23:47 Triage completed. tl2 23:47 Arm band placed on right wrist. tl2 23:48 Keshia Lugo, RN is Primary Nurse. lp1 23:48 Patient has correct armband on for positive identification. Bed in low position. Call tl2 light in reach. Side rails up X 1. Adult w/ patient. 08/24 00:10 Missed attempt(s): 20 gauge in right forearm. lp1 00:15 Inserted saline lock: 20 gauge in right antecubital area, using aseptic technique. lp1 Blood collected. 01:22 No provider procedures requiring assistance completed. lp1 01:57 Notified ED physician of a critical lab result(s). Glucose of 528 Dr English notified. bb 03:24 IV discontinued, No redness/swelling at site. Pressure dressing applied. lp1 Administered Medications: 00:15 Drug: NS 0.9% 1000 ml Route: IV; Rate: 1000 ml; Site: right antecubital; ea 01:30 Follow up: IV Status: Completed infusion; IV Intake: 1000ml lp1 00:15 Drug: Demerol 25 mg Route: IVP; Site: right antecubital; ea 00:25 Follow up: Response: Adverse reaction, Physician notified lp1 00:16 Drug: Zofran 4 mg Route: IVP; Site: right antecubital; ea 01:00 Follow up: Response: Nausea is decreased lp1 00:39 Drug: Benadryl 50 mg Route: IVP; Site: right antecubital; lp1 01:00 Follow up: Response: Marked relief of symptoms lp1 02:35 Drug: Insulin Regular Human 10 units {Co-Signature: jagruti (Tati Galvan RN).} Route: lp1 Sub-Q; Site: right lower abdomen; 03:25 Follow up: Response: Blood sugar is lowered lp1 02:35 Drug: Insulin Regular Human 10 units {Co-Signature: jagruti (Tati Galvan RN).} Route: IVP; lp1 Site: right antecubital; 03:25 Follow up: Response: Blood sugar is lowered lp1 02:35 Drug: NS 0.9% 1000 ml Route: IV; Rate: 1000 ml; Site: right antecubital; lp1 03:25 Follow up: IV Status: Completed infusion; IV Intake: 1000ml lp1 Point of Care Testing: Blood Glucose: 00:12 Blood Glucose: 430 mg/dL; lp1 02:25 Blood Glucose: 420 mg/dL; lp1 03:20 Blood Glucose: 365 mg/dL; lp1 Ranges: Intake: 01:30 IV: 1000ml; Total: 1000ml. lp1 03:25 IV: 1000ml; Total: 2000ml. lp1 Outcome: 02:51 Discharge ordered by . rn 03:25 Discharged to home ambulatory, with significant other. lp1 03:25 Condition: good 03:25 Discharge instructions given to patient, Instructed on discharge instructions, follow up and referral plans. Demonstrated understanding of instructions, follow-up care. 03:26 Patient left the ED. lp1 Signatures: Joycelyn Taylor RN VIRGEN bb Mohsen English MD MD rn Pena, Laura, RN RN lp1 Shelbie Fair RN RN 2 Chelly Beavers Elena, RN RN ea Elena Antunez RN ea
--- NOTE | 2018-08-24 02:52 | EDPHYS ---
Physician Documentation [facility] Name: Lion Pickard Age: 48 yrs Sex: Male : 1970 Arrival Date: 08/23/2018 Time: 23:32 Bed 5 Private MD: ED Physician Mohsen English HPI: 08/24 00:49 This 48 yrs old Male presents to ER via Wheelchair with complaints of High rn Blood Pressure, Vomiting. 00:49 The patient has elevated blood pressure and discovered this at home. Onset: The rn symptoms/episode began/occurred today. Modifying factors: The symptoms are aggravated by. Severity of symptoms: At its worst the blood pressure was moderate, in the emergency department the blood pressure is unchanged. The patient has experienced similar episodes in the past. Reports high blood pressure, headache, vomiting, began earlier today, + history of migraines, has had migraines worse than this one, also reports high blood sugar, no focal neurological complaint, no head injury. . Historical: - Allergies: 08/23 23:47 Vancomycin; tl2 23:47 IV contrast; tl2 - Home Meds: 23:47 amlodipine 5 mg tab [Active]; atorvastatin 40 mg Oral tab [Active]; carvedilol 12.5 mg tl2 Oral tab [Active]; hydrochlorothiazide 25 mg Oral tab [Active]; Lantus 100 unit/mL Sub-Q soln [Active]; lisinopril 20 mg Oral tab [Active]; metformin 1,000 mg Oral tab 1 tab 2 times per day [Active]; Novolog 100 unit/mL Sub-Q soln [Active]; tramadol 50 mg Oral tab [Active]; - PMHx: 23:47 Diabetes - IDDM; Hernia; Hypertension; neuropathy; tl2 - Immunization history:: Adult Immunizations up to date. - Social history:: Smoking status: Patient/guardian denies using tobacco. - Ebola Screening: : No symptoms or risks identified at this time. - Family history:: not pertinent. - Hospitalizations: : No recent hospitalization is reported. ROS: 08/24 00:49 Constitutional: Negative for fever, chills, and weight loss, Eyes: Negative for injury, rn pain, redness, and discharge, Neck: Negative for injury, pain, and swelling, Cardiovascular: Negative for chest pain, palpitations, and edema, Respiratory: Negative for shortness of breath, cough, wheezing, and pleuritic chest pain, Abdomen/GI: + nausea/vomiting, no abd pain MS/Extremity: Negative for injury and deformity, Skin: Negative for injury, rash, and discoloration, Neuro: + headache and generalized weakness Exam: 00:49 Constitutional: This is a well developed, well nourished patient who is awake, alert, rn and in no acute distress. Head/Face: Normocephalic, atraumatic. ENT: MMM Cardiovascular: Regular rate and rhythm. No pulse deficits. Respiratory: Lungs have equal breath sounds bilaterally, clear to auscultation. No increased work of breathing, no retractions or nasal flaring. Abdomen/GI: soft, non-tender MS/ Extremity: Pulses equal, no cyanosis. Neurovascular intact. Full, normal range of motion. Equal circumference. Neuro: Awake and alert, GCS 15, oriented to person, place, time, and situation. Cranial nerves II-XII grossly intact. Motor strength 5/5 in all extremities. Sensory grossly intact. Cerebellar exam normal. Vital Signs: 08/23 23:47 BP 157 / 93; Pulse 100; Resp 18; Temp 98(O); Pulse Ox 95% on R/A; Weight 144.7 kg; tl2 Height 5 ft. 8 in. (172.72 cm); Pain 9/10; 08/24 01:00 BP 138 / 77; Pulse 90; Resp 18; Pulse Ox 97% on R/A; lp1 02:00 BP 147 / 88; Pulse 77; Resp 18; Pulse Ox 96% on R/A; lp1 02:37 BP 147 / 79; Pulse 77; Resp 18; Pulse Ox 98% on R/A; lp1 03:24 BP 134 / 70; Pulse 73; Resp 16; Pulse Ox 96% on R/A; Pain 0/10; lp1 08/23 23:47 Body Mass Index 48.50 (144.70 kg, 172.72 cm) tl2 MDM: 08/23 23:36 Patient medically screened. rn 08/24 02:48 Differential diagnosis: hypertensive crisis, Malignant HTN, hypertensive headache, rn migraine, hyperglycemia, dehydration. 02:49 Data reviewed: vital signs, nurses notes, lab test result(s), radiologic studies, and rn as a result, I will discharge patient. Counseling: I had a detailed discussion with the patient and/or guardian regarding: the historical points, exam findings, and any diagnostic results supporting the discharge/admit diagnosis, lab results, the need for outpatient follow up, to return to the emergency department if symptoms worsen or persist or if there are any questions or concerns that arise at home. Response to treatment: the patient's symptoms have markedly improved after treatment, and as a result, I will discharge patient. Special discussion: I discussed with the patient/guardian in detail that at this point there is no indication for admission to the hospital. It is understood, however, that if the symptoms persist or worsen the patient needs to return immediately for re-evaluation. ED course: Sleeping comfortably, hyperglycemia without acidosis or ketosis, improved with fluids and meds, normal neuro exam, BP improved, will dc home with continuation of current medication regimen. 02:51 Counseling: I had a detailed discussion with the patient and/or guardian regarding: the rn presence of at least one elevated blood pressure reading (>120/80) during this emergency department visit. Special discussion: I have referred the patient to see his PCP for further evaluation of high blood pressure. 08/23 23:47 Order name: CBC with Diff; Complete Time: 01:44 rn 08/23 23:47 Order name: Basic Metabolic Panel; Complete Time: 02:10 rn 08/23 23:47 Order name: Ketone, Serum; Complete Time: 02:10 rn 08/24 02:43 Order name: Glucose, Ancillary Testing; Complete Time: 02:48 EDMS 08/24 02:43 Order name: Glucose, Ancillary Testing; Complete Time: 02:48 EDMS 08/23 23:47 Order name: IV Start; Complete Time: 00:14 rn 08/23 23:47 Order name: EKG; Complete Time: 23:47 rn 08/23 23:47 Order name: Glucose Level; Complete Time: 00:14 rn 08/23 23:47 Order name: EKG - Nurse/Tech; Complete Time: 00:14 rn Administered Medications: 00:15 Drug: NS 0.9% 1000 ml Route: IV; Rate: 1000 ml; Site: right antecubital; ea 01:30 Follow up: IV Status: Completed infusion; IV Intake: 1000ml lp1 00:15 Drug: Demerol 25 mg Route: IVP; Site: right antecubital; ea 00:25 Follow up: Response: Adverse reaction, Physician notified lp1 00:16 Drug: Zofran 4 mg Route: IVP; Site: right antecubital; ea 01:00 Follow up: Response: Nausea is decreased lp1 00:39 Drug: Benadryl 50 mg Route: IVP; Site: right antecubital; lp1 01:00 Follow up: Response: Marked relief of symptoms lp1 02:35 Drug: Insulin Regular Human 10 units {Co-Signature: jagruti (Tati Galvan RN).} Route: lp1 Sub-Q; Site: right lower abdomen; 03:25 Follow up: Response: Blood sugar is lowered lp1 02:35 Drug: Insulin Regular Human 10 units {Co-Signature: jagruti (Tati Galvan RN).} Route: IVP; lp1 Site: right antecubital; 03:25 Follow up: Response: Blood sugar is lowered lp1 02:35 Drug: NS 0.9% 1000 ml Route: IV; Rate: 1000 ml; Site: right antecubital; lp1 03:25 Follow up: IV Status: Completed infusion; IV Intake: 1000ml lp1 Point of Care Testing: Blood Glucose: 00:12 Blood Glucose: 430 mg/dL; lp1 02:25 Blood Glucose: 420 mg/dL; lp1 03:20 Blood Glucose: 365 mg/dL; lp1 Ranges: Critical Glucose Levels:Adult <50 mg/dl or >400 mg/dl <40 mg/dl or >180 mg/dl Disposition: 08/24/18 02:51 Discharged to Home. Impression: Headache, Hyperglycemia, unspecified, Dehydration. - Condition is Stable. - Discharge Instructions: Dehydration, Adult, General Headache Without Cause, Migraine Headache, Hyperglycemia, Hypertension. - Medication Reconciliation Form, Thank You Letter, Antibiotic Education, Prescription Opioid Use form. - Follow up: Private Physician; When: As needed; Reason: Recheck today's complaints, Re-evaluation by your physician. - Problem is new. - Symptoms have improved. Signatures: Dispatcher [employer] EDMohsen Chavez MD MD rn Pena, Laura, RN RN lp1 Shelbie Fair RN RN 2 Tati Galvan RN RN ea Elena Antunez RN ea Corrections: (The following items were deleted from the chart) 03:26 02:51 08/24/2018 02:51 Discharged to Home. Impression: Headache; Hyperglycemia, lp1 unspecified; Dehydration. Condition is Stable. Forms are Medication Reconciliation Form, Thank You Letter, Antibiotic Education, Prescription Opioid Use. Follow up: Private Physician; When: As needed; Reason: Recheck today's complaints, Re-evaluation by your physician. Problem is new. Symptoms have improved. rn
[2018-08-24 03:31] VITALS: TEMP 98
[2018-08-24 03:35] VITALS: BP 134/70; O2SAT 96
--- NOTE | 2018-08-24 05:58 | EKG ---
Test Date: 2018-08-24 Test Time: 00:11:36 Financial Compliance Manager: MANDI MEASUREMENT RESULTS: Intervals: Rate: 91 [place]: 168 QRSD: 88 QT: 352 QTc: 432 [place]: P: 52 [place]: 168 QRS: -10 T: 43 INTERPRETIVE STATEMENTS: Normal sinus rhythm Normal ECG Compared to ECG 07/26/2018 20:05:57 No significant changes Electronically Signed On 08-24-18 05:57:00 CDT by Khanh Christopher
== END 2018-08-24 03:26 | disposition home or self-care (01) ==
LOC: ER 23:31
DX: E11.65 Type 2 diabetes mellitus with hyperglycemia (principal); E11.40 Type 2 diabetes mellitus with diabetic neuropathy, unspecified; E86.0 Dehydration; I10 Essential (primary) hypertension; Z79.4 Long term (current) use of insulin; Z88.1 Allergy status to other antibiotic agents; Z91.041 Radiographic dye allergy status
CPT/HCPCS: 36415; 80048; 82010; 82962; 85025; 93005; 96361; 96372; 96374; 96375; 99284; J2175; J2405; J7030

== ENCOUNTER 2018-09-12 11:56 | Emergency (ER) | payer SELFPAY ==
--- OUTSIDE RECORDS SUMMARY | 2018-09-12 11:58 | XMS REPORT | Continuity of Care Document ---
:1970 Author Organization Interface Problems Problem Status Onset Classification Date Comments Source Date Reported SWOLLEN FOOT Active [facility] 8 [place] Medications Medication Details Route Status Patient Ordering Order Source Instructions Provider Date Allergies, Adverse Reactions, Alerts Substance Category Reaction Severity Reaction Status Date Comments Source type Reported Immunizations Immunization Date Given Site Status Last Updated Comments Source Results Order Name Results Value Reference Date Interpretation Comments Source Range Ext Lower Ext Lower EXAM: Right lower extremity venous Doppler ultrasound 03/18 - [facility] Venous Venous /2017 - [place] Doppler Doppler HISTORY: Right lower extremity pain and edema Unilat US Unilat US COMPARISON: None Read by: Misael Cotter MD Dictated Date/time: 03/18/18 13:16 TECHNIQUE: Sonographic evaluation of the right lower extremity deep veins was performed using high resolution B-mode imaging, along with pulse and color Doppler imaging. Electronically Signed by: Misael Cotter MD 03/18/18 13:18 FINAL REPORT FINDINGS: The common femoral, femoral and popliteal veins and greater saphenous and posterior tibial veins are patent. Enlarged nodes in the right inguinal region, the largest measures 4.6 cm. IMPRESSION: 1. No deep vein thrombosis is seen in the right lower extremity. 2. Enlarged lymph nodes right inguinal region measuring up to 4.6 cm. SL: [id number] Foot 3 Foot 3 Exam: Foot 3 views bilateral DX 03/18 - [facility] views - [place] bilateral bilateral Clinical Indication: - bilateral foot ulcers DX DX Comparison: None Read by: Cameron Adams MD Dictated Date/time: 03/18/18 13:11 Electronically Signed by: Cameron Adams MD 03/18/18 13:15 FINAL REPORT FINDINGS: 3 views of the right foot are performed. 3 views of the left foot are performed. Right Foot: Status post partial amputation of the 1st ray at the level of the proximal 1st metatarsal. There is mildly comminuted oblique fracture through the mid diaphysis of the 2nd metatarsal with mild lateral d isplacement of distal fragment by 3 mm. Normal alignment without dislocation. Calcaneal enthesopathy present at the insertion of the Achilles tendon and plantar fascia. No osseous erosive changes. Diffu se soft tissue swelling is present in the foot most prominent in the medial forefoot. No radiopaque foreign bodies or soft tissue gas. Left Foot: No acute fracture identified. Normal alignment without dislocation. Calcaneal enthesopathy is present at the insertion of the Achilles tendon and plantar fascia. No osseous erosive changes. No regional soft tissue swelling. No radiopaque foreign bodies or soft tissue gas. IMPRESSION: 1. Mildly comminuted, mildly displaced fracture of the right mid 2nd metatarsal. 2. Status post partial amputation of the right 1st ray. 3. No acute osseous abnormality of the left foot. SL: [id number] Vital Signs Vital Sign Value Date Comments Source Encounters Location Location Encounter Encounter Reason Attending ADM DC Status Source Details Type Number For Provider Date Date Visit Procedures Procedure Code Date Perfomer Comments Source
--- OUTSIDE RECORDS SUMMARY | 2018-09-12 11:59 | XMS REPORT ---
:1970 [facility] Address [address] [place] [address] Care Team Providers Name Role Phone Unavailable Unavailable Unavailable Problems This patient has no known problems. Allergies, Adverse Reactions, Alerts This patient has no known allergies or adverse reactions. Medications This patient has no known medications.
[2018-09-12] MEDS ORDERED: DIPHENHYDRAMINE 50 MG/ML VIAL ONE (13:35)
[2018-09-12] MEDS ORDERED: NA CHLORIDE 0.9% 1,000 ML ONE (13:35)
[2018-09-12] MEDS ORDERED: METOCLOPRAMIDE 10 MG/2mL INJ ONE (13:35)
--- NOTE | 2018-09-12 14:00 | ER ---
Nurse's Notes [facility] Name: Lion Pickard Age: 48 yrs Sex: Male : 1970 Arrival Date: 09/12/2018 Time: 12:06 Bed 20 Private MD: Diagnosis: Migraine Presentation: 09/12 12:18 Presenting complaint: Patient states: "my blood pressure has been high for about 2 aa5 weeks now and today it was 188 over something". Pt also c/o headache and also states "my blood sugar was almost 500 this morning". Transition of care: patient was not received from another setting of care. Onset of symptoms was September 2018. Risk Assessment: Do you want to hurt yourself or someone else? Patient reports no desire to harm self or others. Initial Sepsis Screen: Does the patient meet any 2 criteria? No. Patient's initial sepsis screen is negative. Does the patient have a suspected source of infection? No. Patient's initial sepsis screen is negative. Care prior to arrival: None. 12:18 Method Of Arrival: Ambulatory aa5 12:18 Acuity: BATSHEVA 3 aa5 Triage Assessment: 12:30 General: Appears in no apparent distress. uncomfortable, obese, Behavior is calm, bp cooperative, appropriate for age. Pain: Complains of pain in head. EENT: No deficits noted. Neuro: Level of Consciousness is awake, alert, obeys commands, Oriented to person, place, time, situation, Appropriate for age. Cardiovascular: No deficits noted. Respiratory: Airway is patent. GI: No signs and/or symptoms were reported involving the gastrointestinal system. : No signs and/or symptoms were reported regarding the genitourinary system. Derm: No deficits noted. Musculoskeletal: Circulation, motion, and sensation intact. Range of motion: intact in all extremities. Historical: - Allergies: 12:19 IV contrast; aa5 12:19 Vancomycin; aa5 - PMHx: 12:19 Diabetes - IDDM; Hernia; Hypertension; neuropathy; aa5 - Immunization history:: Flu vaccine is up to date. - Social history:: Smoking status: Patient/guardian denies using tobacco, Patient/guardian denies using alcohol, street drugs, The patient lives with family. - Ebola Screening: : No symptoms or risks identified at this time. - Family history:: not pertinent. Screenin:30 Abuse screen: Denies threats or abuse. Denies injuries from another. Nutritional bp screening: No deficits noted. Tuberculosis screening: No symptoms or risk factors identified. Fall Risk None identified. Assessment: 12:30 General: SEE TRIAGE NOTE. bp 14:33 Reassessment: PT D/C HOME AMBULATORY WITH FAMILY, DX WITH MIGRAINE. bp Vital Signs: 12:19 BP 151 / 88; Pulse 100; Resp 18 S; Temp 98.2(TE); Pulse Ox 97% on R/A; Weight 143.79 kg aa5 (R); Height 5 ft. 9 in. (175.26 cm) (R); Pain 10/10; 14:30 BP 135 / 78; Pulse 89; Resp 16; Pulse Ox 98% ; bp 12:19 Body Mass Index 46.81 (143.79 kg, 175.26 cm) aa5 ED Course: 12:06 Patient arrived in ED. aa5 12:18 Arm band placed on. aa5 12:19 Triage completed. aa5 12:31 Tan Robles MD is Attending Physician. ma2 12:50 Arvind Ivy, VIRGEN is Primary Nurse. bp 13:30 Patient has correct armband on for positive identification. Bed in low position. Call bp light in reach. Side rails up X2. Adult w/ patient. 13:30 Inserted saline lock: 22 gauge in right antecubital area, using aseptic technique. bp Blood collected. 14:33 No provider procedures requiring assistance completed. IV discontinued, intact, bp bleeding controlled, No redness/swelling at site. Pressure dressing applied. Administered Medications: 13:30 Drug: NS 0.9% 1000 ml Route: IV; Rate: 1 bolus; Site: right antecubital; bp 14:30 Follow up: IV Status: Completed infusion; IV Intake: 1000ml bp 13:30 Drug: Reglan 20 mg Route: IVP; Site: right antecubital; bp 14:31 Follow up: Response: Marked relief of symptoms bp 13:30 Drug: Benadryl 50 mg Route: IVP; Site: right antecubital; bp 14:31 Follow up: Response: Marked relief of symptoms bp Point of Care Testing: Blood Glucose: 12:34 Blood Glucose: 318 mg/dL; aa5 Ranges: Intake: 14:30 IV: 1000ml; Total: 1000ml. bp Outcome: 13:59 Discharge ordered by MD. garza 14:34 Discharged to home ambulatory. bp 14:34 Condition: stable 14:34 Discharge instructions given to patient, Instructed on discharge instructions, follow up and referral plans. medication usage, Demonstrated understanding of instructions, follow-up care, medications, Prescriptions given X 2. 14:35 Patient left the ED. bp Signatures: Joanna Ron RN RN aa5 Arvind Ivy RN RN bp Tan Robles MD MD ma2 Corrections: (The following items were deleted from the chart) 14:35 12:30 BP 135 / 78; Pulse 89bpm; Resp 16bpm; Pulse Ox 98%; bp bp
--- NOTE | 2018-09-12 14:00 | EDPHYS ---
Physician Documentation [facility] Name: Lion Pickard Age: 48 yrs Sex: Male : 1970 Arrival Date: 09/12/2018 Time: 12:06 Bed 20 Private MD: ED Physician Tan Robles HPI: 09/12 13:16 This 48 yrs old Male presents to ER via Ambulatory with complaints of High ma2 Blood Pressure. 13:16 Onset: The symptoms/episode began/occurred gradually, 1 week(s) ago. Associated signs ma2 and symptoms: Pertinent negatives: chest pain, dizziness, dyspnea, headache, lightheadedness, nausea, visual changes, vomiting, weakness. Severity of symptoms: At its worst the blood pressure was moderate. 13:19 The patient has experienced similar episodes in the past. ma2 Historical: - Allergies: 12:19 IV contrast; aa5 12:19 Vancomycin; aa5 - PMHx: 12:19 Diabetes - IDDM; Hernia; Hypertension; neuropathy; aa5 - Immunization history:: Flu vaccine is up to date. - Social history:: Smoking status: Patient/guardian denies using tobacco, Patient/guardian denies using alcohol, street drugs, The patient lives with family. - Ebola Screening: : No symptoms or risks identified at this time. - Family history:: not pertinent. ROS: 13:19 Constitutional: Negative for fever, chills, and weight loss. ma2 13:19 Cardiovascular: Negative for chest pain, palpitations, and edema, Respiratory: Negative for shortness of breath, cough, wheezing, and pleuritic chest pain, Abdomen/GI: Negative for abdominal pain, nausea, diarrhea, and constipation, MS/Extremity: Negative for injury and deformity, Skin: Negative for injury, rash, and discoloration, Psych: Negative for depression, anxiety, suicide ideation, homicidal ideation, and hallucinations. 13:19 Neuro: Positive for headache, Negative for altered mental status, dizziness, gait disturbance, hearing loss, numbness, seizure activity, visual changes, acute changes. 13:19 All other systems are negative. Exam: 13:19 Constitutional: This is a well developed, well nourished patient who is awake, alert, ma2 and in no acute distress. Head/Face: Normocephalic, atraumatic. Chest/axilla: Normal chest wall appearance and motion. Nontender with no deformity. No lesions are appreciated. Cardiovascular: Regular rate and rhythm with a normal S1 and S2. No gallops, murmurs, or rubs. Normal PMI, no JVD. No pulse deficits. Respiratory: Lungs have equal breath sounds bilaterally, clear to auscultation and percussion. No rales, rhonchi or wheezes noted. No increased work of breathing, no retractions or nasal flaring. Abdomen/GI: Soft, non-tender, with normal bowel sounds. No distension or tympany. No guarding or rebound. No evidence of tenderness throughout. Skin: Warm, dry with normal turgor. Normal color with no rashes, no lesions, and no evidence of cellulitis. MS/ Extremity: Pulses equal, no cyanosis. Neurovascular intact. Full, normal range of motion. Vital Signs: 12:19 BP 151 / 88; Pulse 100; Resp 18 S; Temp 98.2(TE); Pulse Ox 97% on R/A; Weight 143.79 kg aa5 (R); Height 5 ft. 9 in. (175.26 cm) (R); Pain 10/10; 14:30 BP 135 / 78; Pulse 89; Resp 16; Pulse Ox 98% ; bp 12:19 Body Mass Index 46.81 (143.79 kg, 175.26 cm) aa5 MDM: 12:31 Patient medically screened. ma 13:19 Differential diagnosis: has essential HTN, out of his migraine headache, hre with mild ma2 migraine unchanged from prior headache, gradual.. BP non critical. 13:58 Data reviewed: vital signs, nurses notes. Counseling: I had a detailed discussion with ma2 the patient and/or guardian regarding: the historical points, exam findings, and any diagnostic results supporting the discharge/admit diagnosis, the presence of at least one elevated blood pressure reading (>120/80) during this emergency department visit, the need for outpatient follow up. Response to treatment: the patient's symptoms have markedly improved after treatment. 14:00 ED course: patient also complaint of left great toe would that is been there for 2 ma2 weeks, unchanged, left great toe has 0.5x0.5 cm wound with no induration or tenderness otherwise foot is wnl no swelling ttp or redness. 09/12 12:36 Order name: EKG - Nurse/Tech; Complete Time: 12:51 ma2 Administered Medications: 13:30 Drug: NS 0.9% 1000 ml Route: IV; Rate: 1 bolus; Site: right antecubital; bp 14:30 Follow up: IV Status: Completed infusion; IV Intake: 1000ml bp 13:30 Drug: Reglan 20 mg Route: IVP; Site: right antecubital; bp 14:31 Follow up: Response: Marked relief of symptoms bp 13:30 Drug: Benadryl 50 mg Route: IVP; Site: right antecubital; bp 14:31 Follow up: Response: Marked relief of symptoms bp Point of Care Testing: Blood Glucose: 12:34 Blood Glucose: 318 mg/dL; aa5 Ranges: Critical Glucose Levels:Adult <50 mg/dl or >400 mg/dl <40 mg/dl or >180 mg/dl Disposition: 09/12/18 13:59 Discharged to Home. Impression: Migraine. - Condition is Stable. - Discharge Instructions: Migraine Headache. - Prescriptions for Clindamycin HCl 300 mg Oral Capsule - take 1 capsule by ORAL route every 6 hours for 10 days; 40 capsule. Reglan 10 mg Oral Tablet - take 1 tablet by ORAL route every 6 hours take 30 minutes before meals and at bedtime; 20 tablet. - Medication Reconciliation Form, Thank You Letter, Antibiotic Education, Prescription Opioid Use form. - Follow up: Private Physician; When: Tomorrow; Reason: Continuance of care. Signatures: Joanna Ron RN RN aa5 Arvind Ivy RN RN bp Tan Robles MD MD ma2 Corrections: (The following items were deleted from the chart) 14:35 13:59 09/12/2018 13:59 Discharged to Home. Impression: Migraine. Condition is Stable. bp Prescriptions for Clindamycin HCl 300 mg Oral Capsule - take 1 capsule by ORAL route every 6 hours for 10 days; 40 capsule, Reglan 10 mg Oral Tablet - take 1 tablet by ORAL route every 6 hours take 30 minutes before meals and at bedtime; 20 tablet. and Forms are Medication Reconciliation Form, Thank You Letter, Antibiotic Education, Prescription Opioid Use. Follow up: Private Physician; When: Tomorrow; Reason: Continuance of care. ma2
[2018-09-12 14:48] VITALS: TEMP 98.2
[2018-09-12 14:49] VITALS: BP 135/78; O2SAT 98
== END 2018-09-12 14:35 | disposition home or self-care (01) ==
LOC: ER 11:56
DX: G43.909 Migraine, unspecified, not intractable, without status migrainosus (principal); I10 Essential (primary) hypertension; E11.40 Type 2 diabetes mellitus with diabetic neuropathy, unspecified; Z79.4 Long term (current) use of insulin; Z88.1 Allergy status to other antibiotic agents; Z91.041 Radiographic dye allergy status
CPT/HCPCS: 82962; 96361; 96374; 96375; 99284; J2765; J7030

== ENCOUNTER 2018-09-20 14:58 | Inpatient (IN) | payer SELFPAY ==
--- OUTSIDE RECORDS SUMMARY | 2018-09-20 15:00 | XMS REPORT ---
:1970 [facility] Address [address] [place] [address] Care Team Providers Name Role Phone Unavailable Unavailable Unavailable Problems This patient has no known problems. Allergies, Adverse Reactions, Alerts This patient has no known allergies or adverse reactions. Medications This patient has no known medications.
--- OUTSIDE RECORDS SUMMARY | 2018-09-20 15:00 | XMS REPORT | Continuity of Care Document ---
:1970 Author Organization Interface Problems Problem Status Onset Classification Date Comments Source Date Reported SWOLLEN FOOT Active [facility] 8 [place] Medications Medication Details Route Status Patient Ordering Order Source Instructions Provider Date Allergies, Adverse Reactions, Alerts Substance Category Reaction Severity Reaction Status Date Comments Source type Reported Immunizations Immunization Date Given Site Status Last Updated Comments Source Results Order Name Results Value Reference Date Interpretation Comments Source Range Ext Lower Ext Lower EXAM: Right lower extremity venous Doppler ultrasound 03/18 - [facility] Venous Venous /2017 - [place] Doppler Doppler HISTORY: Right lower extremity pain [...] region measuring up to 4.6 cm. SL: [id number] Foot 3 Foot 3 Exam: Foot 3 views bilateral DX 03/18 - [facility] views - [place] bilateral bilateral Clinical Indication: - bilateral foot [...] osseous abnormality of the left foot. SL: [id number] Vital Signs Vital Sign Value Date Comments Source Encounters Location Location Encounter Encounter Reason Attending ADM DC Status Source Details Type Number For Provider Date Date Visit Procedures Procedure Code Date Perfomer Comments Source
[2018-09-20] MEDS ORDERED: ONDANSETRON 4 MG/2 ML VIAL ONE (16:06)
[2018-09-20] MEDS ORDERED: MORPHINE 4 MG/ML SYR ONE (16:06)
--- NOTE | 2018-09-20 16:16 | RAD REPORT ---
EXAM DESCRIPTION: USExtremnestor Venous [facility]4 3:47 pm CLINICAL HISTORY: left leg pain and swelling. COMPARISON: None. FINDINGS: Left common femoral, superficial femoral, popliteal and posterior tibial veins are compre ssible and demonstrate augmentation. Doppler demonstrates good flow. 4.7 x 1.4 centimeter left inguinal lymph node contains a fatty center and likely is benign IMPRESSION: No evidence of deep venous thrombosis involving the left lower extremity.
--- NOTE | 2018-09-20 16:17 | RAD REPORT ---
EXAM DESCRIPTION: RAD - Foot Left 3 View - 09/20/2018 4:00 pm CLINICAL HISTORY: Left Foot pain FINDINGS: No fracture or dislocation is seen. Large calcaneal spur is present. No bony destructive lesions seen
[2018-09-20 16:26] LABS: Absolute Lymphocytes (CBC) 1.6 K/uL (0.7-4.9); Absolute Monocytes 0.6 K/uL (0.1-1.3); Absolute Neutrophil 9.2 K/uL (1.8-8.0); Basophils % 0.7 % (0-1.3); Eosinophils % 2.2 % (0-4.4); Hematocrit 46.3 % (39.6-49.0); Lymphocytes % 13.4 % (15.3-44.8); MPV 10.1 fL (7.6-11.3); Monocytes % 4.9 % (3.3-12.3); RBC Red Blood Cell Count 5.28 M/uL (4.33-5.43)
[2018-09-20 16:30] LABS: Protime INR 0.99
[2018-09-20 16:37] LABS: ALT/SGPT 15 U/L (12-78); AST/SGOT 8 U/L (15-37); Albumin 3.5 g/dL (3.4-5.0); Alkaline Phosphatase 157 U/L (45-117); BUN Blood Urea Nitrogen 20 mg/dL (7-18); Bicarbonate 27 mmol/L (21-32); Bilirubin Direct < 0.1 mg/dL (0-0.2); Bilirubin Total 0.3 mg/dL (0.2-1.0); Glucose Level 357 mg/dL (74-106); Potassium 4.3 mmol/L (3.5-5.1); Protein, Total 8.1 g/dL (6.4-8.2); Sodium Level 134 mmol/L (136-145)
--- NOTE | 2018-09-20 17:08 | EDPHYS ---
Physician Documentation [facility] Name: Lion Pickard Age: 48 yrs Sex: Male : 1970 Arrival Date: 09/20/2018 Time: 15:00 Bed Ultrasound Private MD: ED Physician Mohsen English HPI: 09/20 15:27 This 48 yrs old Male presents to ER via Wheelchair with complaints of Wound cp Infection. 15:27 The patient presents with pain, swelling, tenderness. cp 15:27 The complaints affect the left foot. Onset: The symptoms/episode began/occurred cp gradually, and became worse today. Associated signs and symptoms: Pertinent negatives fever. Patient reports being seen at [facility] and started on antibiotics last week for left foot infection. Patient reports increasing pain that now radiates up leg. Historical: - Allergies: 15:08 IV contrast; sv 15:08 Vancomycin; sv - Home Meds: 19:37 amlodipine 5 mg tab [Active]; atorvastatin 40 mg Oral tab [Active]; carvedilol 12.5 mg ak1 Oral tab [Active]; hydrochlorothiazide 25 mg Oral tab [Active]; Lantus 100 unit/mL Sub-Q soln [Active]; lisinopril 20 mg Oral tab [Active]; metformin 1,000 mg Oral tab 1 tab 2 times per day [Active]; Novolog 100 unit/mL Sub-Q soln [Active]; tramadol 50 mg Oral tab [Active]; - PMHx: 15:08 Diabetes - IDDM; Hernia; Hypertension; neuropathy; sv - Immunization history:: Adult Immunizations unknown. - Ebola Screening: : No symptoms or risks identified at this time. - Social history:: Smoking status: . ROS: 15:30 Eyes: Negative for injury, pain, redness, and discharge. cp 15:30 Constitutional: Negative for body aches, chills, fever, poor PO intake. 15:30 ENT: Negative for drainage from ear(s), ear pain, sore throat, difficulty swallowing, difficulty handling secretions. 15:30 Cardiovascular: Negative for chest pain, edema, palpitations. 15:30 Respiratory: Negative for cough, shortness of breath, wheezing. 15:30 Abdomen/GI: Negative for abdominal pain, vomiting, diarrhea, constipation, black/tarry stool, rectal bleeding. 15:30 MS/extremity: Positive for pain, tenderness, of the left leg. 15:30 Skin: Positive for of the plantar surface of left foot, pressure ulcers. 15:30 Neuro: Negative for altered mental status, numbness, weakness. 15:30 All other systems are negative. Exam: 15:35 Constitutional: The patient appears in no acute distress, alert, awake, cp non-diaphoretic, non-toxic, well developed, well nourished, obese. 15:35 Head/Face: Normocephalic, atraumatic. cp 15:35 Eyes: Periorbital structures: appear normal, Conjunctiva: normal, no exudate, no injection, Sclera: no appreciated abnormality, Lids and lashes: appear normal, bilaterally. 15:35 ENT: External ear(s): are unremarkable, Nose: is normal, Mouth: Lips: moist, Oral mucosa: moist, Posterior pharynx: Airway: no evidence of obstruction, patent. 15:35 Neck: ROM/movement: is normal, is supple, without pain, no range of motions limitations, no nuchal rigidity. 15:35 Chest/axilla: Inspection: normal, Palpation: is normal, no crepitus, no tenderness. 15:35 Cardiovascular: Rate: normal, Rhythm: regular, JVD: is not appreciated. 15:35 Respiratory: the patient does not display signs of respiratory distress, Respirations: normal, no use of accessory muscles, no retractions, no splinting, no tachypnea, labored breathing, is not present, Breath sounds: are clear throughout, no decreased breath sounds, no stridor, no wheezing. 15:35 Abdomen/GI: Exam negative for discomfort, distension, guarding, Inspection: abdomen appears normal. 15:35 Neuro: Orientation: to person, place \T\ time. Mentation: is normal, Cerebellar function: is grossly normal, Motor: moves all fours, strength is normal. 15:35 Skin: cellulitis, that is moderate, irregular, on the left foot, noted pressure ulcers cp plantar surface of left great toe and distal phalanx of left third toe. 15:54 ECG was reviewed by the Attending Physician. cp Vital Signs: 15:08 BP 165 / 96; Pulse 95; Resp 18; Temp 97; Pulse Ox 98% ; Weight 143.79 kg; Height 5 ft. sv 9 in. (175.26 cm); Pain 10/10; 16:03 BP 171 / 91; Pulse 87; Resp 18 S; Pulse Ox 98% on R/A; Pain 10/10; aa5 17:05 BP 157 / 94; Pulse 93; Resp 16 S; Pulse Ox 98% on R/A; aa5 18:04 BP 135 / 88; Pulse 85; Resp 16 S; Pulse Ox 99% on R/A; aa5 15:08 Body Mass Index 46.81 (143.79 kg, 175.26 cm) sv MDM: 15:10 Patient medically screened. rn 15:30 Differential diagnosis: open fracture, sepsis, cellulitis, abscess, DVT, lymphangitis. cp 16:03 ED course: phone report of US results negative for DVT. cp 17:05 Data reviewed: vital signs, nurses notes, lab test result(s), EKG, radiologic studies, cp plain films, ultrasound, I have discussed the patient's presentation/case with the attending Emergency Department Physician;. 17:05 Test interpretation: by ED physician or midlevel provider: ECG, plain radiologic cp studies. Counseling: I had a detailed discussion with the patient and/or guardian regarding: the historical points, exam findings, and any diagnostic results supporting the discharge/admit diagnosis, lab results, radiology results. Response to treatment: the patient's symptoms have mildly improved after treatment, and as a result, I will admit patient. Physician consultation: Phuc Henriquez MD was called at 16:30, was contacted at 16:30, regarding admission, to the medical/surgical unit. patient's condition. 09/20 15:25 Order name: C-Reactive Protein; Complete Time: 16:43 cp 09/20 16:43 Interpretation: Abnormal: C-REACTIVE PROT 10.50. cp 09/20 15:25 Order name: Sed Rate; Complete Time: 16:57 cp 09/20 16:57 Interpretation: Abnormal: SED 18. cp 09/20 15:25 Order name: Wound Culture cp 09/20 15:25 Order name: Basic Metabolic Panel; Complete Time: 16:43 cp 09/20 16:43 Interpretation: Normal except: NA 134; GLUC 357; BUN 20; CRE 1.52; GFR 49. cp 09/20 15:25 Order name: Blood Culture Adult (2) cp 09/20 15:25 Order name: CBC with Diff; Complete Time: 16:57 09/20 16:33 Interpretation: Normal except: WBC 11.7; ALICIA% 78.8; LYM% 13.4; NEUT A 9.2. 09/20 15:25 Order name: Lactate; Complete Time: 16:57 09/20 16:57 Interpretation: LAC 1.3; Reviewed. 09/20 15:25 Order name: LFT's; Complete Time: 16:43 09/20 16:44 Interpretation: Normal except: AST 8; ALK 157; GLOB 4.6; A/G 0.8. 09/20 15:25 Order name: Procalcitonin; Complete Time: 17:04 09/20 17:04 Interpretation: Reviewed. 09/20 15:25 Order name: Protime (+inr); Complete Time: 16:32 09/20 16:32 Interpretation: Within normal limits. 09/20 15:25 Order name: Ptt, Activated; Complete Time: 16:32 09/20 16:33 Interpretation: Within normal limits. 09/20 15:25 Order name: Urine Microscopic Only 09/20 16:41 Order name: Glucose, Ancillary Testing; Complete Time: 16:43 EDMS 09/20 16:58 Interpretation: Abnormal: GLUC,ANCIL 346. 09/20 17:39 Order name: Urine Dipstick--Ancillary (enter results) 09/20 15:25 Order name: Accucheck; Complete Time: 16:09 09/20 15:25 Order name: Cardiac monitoring; Complete Time: 16:09 09/20 15:25 Order name: EKG - Nurse/Tech; Complete Time: 16:09 09/20 15:25 Order name: IV Saline Lock - Large Bore; Complete Time: 16:09 09/20 15:25 Order name: Labs collected and sent; Complete Time: 16:09 09/20 15:25 Order name: O2 Per Protocol; Complete Time: 16:09 09/20 15:25 Order name: US Extremity Venous Unilateral Ltd; Complete Time: 16:32 09/20 15:28 Order name: XRAY Foot LEFT 3 View; Complete Time: 16:32 09/20 16:20 Order name: EKG Electrocardiogram; Complete Time: 16:21 EDMS 09/20 18:06 Order name: Urine Dipstick-Ancillary EDMS 09/20 15:25 Order name: O2 Sat Monitoring; Complete Time: 16:09 cp 09/20 15:25 Order name: Urine Dipstick-Ancillary (obtain specimen); Complete Time: 17:41 cp EC:54 Rate is 87 beats/min. Rhythm is regular. IN interval is normal. QRS interval is normal. cp QT interval is normal. Interpreted by me. Reviewed by me. Administered Medications: 16:02 Drug: Zofran 4 mg Route: IVP; Site: right antecubital; aa5 16:10 Follow up: Response: No adverse reaction aa5 16:04 Drug: morphine 4 mg Route: IVP; Site: right antecubital; aa5 16:10 Follow up: Response: No adverse reaction aa5 17:10 Drug: Zosyn 3.375 grams Route: IVPB; Infused Over: 60 mins; Site: right antecubital; aa5 18:02 Follow up: Response: No adverse reaction; IV Status: Completed infusion aa5 17:10 Drug: NS 0.9% 1000 ml Route: IV; Rate: 1 bolus; Site: right antecubital; aa5 18:03 Follow up: IV Status: Completed infusion aa5 17:10 Drug: Insulin Regular Human 10 units {Co-Signature: [email or web address] (Veronica Hernandez RN).} Route: IVP; aa5 Site: right antecubital; 18:03 Follow up: Response: No adverse reaction; Blood sugar is lowered aa5 18:02 Drug: LevaQUIN 500 mg Volume: 100 ml; Route: IVPB; Infused Over: 60 mins; Site: right aa5 antecubital; 18:27 Follow up: Response: No adverse reaction aa5 19:00 Follow up: IV Status: Completed infusion ak1 Point of Care Testing: Blood Glucose: 16:07 Blood Glucose: 346 mg/dL; aa5 18:04 Blood Glucose: 195 mg/dL; aa5 Ranges: Critical Glucose Levels:Adult <50 mg/dl or >400 mg/dl <40 mg/dl or >180 mg/dl Disposition: 09/20/18 17:07 Hospitalization ordered by Phuc Henriquez for Inpatient Admission. Preliminary diagnosis is Cellulitis and acute lymphangitis of other parts of limb - Left foot and leg. - Bed requested for Telemetry/MedSurg (Inpatient). - Status is Inpatient Admission. ak1 - Condition is Stable. - Problem is an ongoing problem. - Symptoms have improved. UTI on Admission? No Addendum: 09/26/2018 23:21 Co-signature as Attending Physician, Mohsen English MD. r n Signatures: Dispatcher [employer] EDZara Vega, RN RN Mohsen English MD MD rn Calderon, Audri RN RN aa5 Catherine Kennedy RN RN ss Alee Leos RN RN ak1 Cristian Platt PA PA Veronica Kelley RN RN [email or web address] Veronica Hernandez RN [email or web address] Corrections: (The following items were deleted from the chart) 09/20 18:09 17:07 Hospitalization Ordered by Phuc Henriquez MD for Inpatient Admission. Preliminary ss diagnosis is Cellulitis and acute lymphangitis of other parts of limb - Left foot and leg. Bed requested for Telemetry/MedSurg (Inpatient). Status is Inpatient Admission. Condition is Stable. Problem is an ongoing problem. Symptoms have improved. UTI on Admission? No. cp 20:40 18:09 09/20/2018 17:07 Hospitalization Ordered by Phuc Henriquez MD for Inpatient ak1 Admission. Preliminary diagnosis is Cellulitis and acute lymphangitis of other parts of limb - Left foot and leg. Bed requested for Telemetry/MedSurg (Inpatient). Status is Inpatient Admission. Condition is Stable. Problem is an ongoing problem. Symptoms have improved. UTI on Admission? No. ss
--- NOTE | 2018-09-20 17:08 | ER ---
Nurse's Notes [facility] Name: Lion Pickard Age: 48 yrs Sex: Male : 1970 Arrival Date: 09/20/2018 Time: 15:00 Bed Ultrasound Private MD: Diagnosis: Cellulitis and acute lymphangitis of other parts of limb-Left foot and leg Presentation: 09/20 15:07 Presenting complaint: Patient states: diabetic sores under the left foot that have been sv there for about a month, was seen here a couple of weeks ago and given prescriptions but sores have not improved. Transition of care: patient was not received from another setting of care. Onset of symptoms was August 2018. Care prior to arrival: None. 15:07 Method Of Arrival: Wheelchair sv 15:07 Acuity: BATSHEVA 3 sv 15:20 Initial Sepsis Screen: Does the patient meet any 2 criteria? HR > 90 bpm. Does the aa5 patient have a suspected source of infection? No. Patient's initial sepsis screen is negative. 15:20 Risk Assessment: Do you want to hurt yourself or someone else? Patient reports no aa5 desire to harm self or others. Historical: - Allergies: 15:08 IV contrast; sv 15:08 Vancomycin; sv - Home Meds: 19:37 amlodipine 5 mg tab [Active]; atorvastatin 40 mg Oral tab [Active]; carvedilol 12.5 mg ak1 Oral tab [Active]; hydrochlorothiazide 25 mg Oral tab [Active]; Lantus 100 unit/mL Sub-Q soln [Active]; lisinopril 20 mg Oral tab [Active]; metformin 1,000 mg Oral tab 1 tab 2 times per day [Active]; Novolog 100 unit/mL Sub-Q soln [Active]; tramadol 50 mg Oral tab [Active]; - PMHx: 15:08 Diabetes - IDDM; Hernia; Hypertension; neuropathy; sv - Immunization history:: Adult Immunizations unknown. - Ebola Screening: : No symptoms or risks identified at this time. - Social history:: Smoking status: . Screenin:20 Abuse screen: Denies threats or abuse. Nutritional screening: No deficits noted. aa5 Tuberculosis screening: No symptoms or risk factors identified. Fall Risk None identified. Assessment: 15:20 General: Appears comfortable, Behavior is calm, cooperative. Pain: Complains of pain in aa5 left foot Pain radiates to left leg Pain currently is 10 out of 10 on a pain scale. Quality of pain is described as burning, shooting, Pain began Is continuous. Neuro: Level of Consciousness is awake, alert, obeys commands, Oriented to person, place, time, situation. Cardiovascular: Heart tones S1 S2 present Rhythm is regular. Respiratory: Airway is patent Respiratory effort is even, unlabored, Respiratory pattern is regular, symmetrical. GI: No signs and/or symptoms were reported involving the gastrointestinal system. : No signs and/or symptoms were reported regarding the genitourinary system. EENT: No signs and/or symptoms were reported regarding the EENT system. Derm: Skin is pink, warm \\T\\ dry. Wound noted is 0.5cm in diameter to plantar aspect of left first toe, dime-sized wound noted to plantar aspect of left third toe and dime-sized wound noted to ball of left foot, no drainage noted to wound. Musculoskeletal: Range of motion: intact in all extremities. 15:20 Reassessment: Pt reports being seen at [facility] approximately 3-4 days ago and aa5 prescribed "2 antibiotics" . 15:55 Reassessment: Patient is alert, oriented x 3, equal unlabored respirations, skin aa5 warm/dry/pink. Pt back from US . 17:00 Reassessment: Patient is alert, oriented x 3, equal unlabored respirations, skin aa5 warm/dry/pink. Urine collected, Urine micro sent to lab, pt voided 400cc of clear yellow urine. . 17:05 Reassessment: Wound culture collected and sent to lab. Wounds to left foot cleaned with aa5 Hibiclens and saline, dressed with gauze and Kerlix. . 18:05 Reassessment: Patient is alert, oriented x 3, equal unlabored respirations, skin aa5 warm/dry/pink. Awaiting room assignment. 18:26 Reassessment: Patient is alert, oriented x 3, equal unlabored respirations, skin aa5 warm/dry/pink. Pt notified of room assignment 212 and notified of wait time to be transported to room 212 (around 1930), pt verbalized understanding. . Vital Signs: 15:08 BP 165 / 96; Pulse 95; Resp 18; Temp 97; Pulse Ox 98% ; Weight 143.79 kg; Height 5 ft. sv 9 in. (175.26 cm); Pain 10/10; 16:03 BP 171 / 91; Pulse 87; Resp 18 S; Pulse Ox 98% on R/A; Pain 10/10; aa5 17:05 BP 157 / 94; Pulse 93; Resp 16 S; Pulse Ox 98% on R/A; aa5 18:04 BP 135 / 88; Pulse 85; Resp 16 S; Pulse Ox 99% on R/A; aa5 15:08 Body Mass Index 46.81 (143.79 kg, 175.26 cm) sv ED Course: 15:00 Patient arrived in ED. mr 15:08 Triage completed. sv 15:08 Arm band placed on. sv 15:10 Mohsen English MD is Attending Physician. rn 15:10 Cristian Platt PA is PHCP. cp 15:14 Joanna Ron RN is Primary Nurse. aa5 15:20 Patient has correct armband on for positive identification. Bed in low position. Call aa5 light in reach. Side rails up X 1. Adult w/ patient. 15:36 US Extremity Venous Unilateral Ltd In Process Unspecified. EDMS 15:59 X-ray completed. Portable x-ray completed in exam room. Patient tolerated procedure az well. 15:59 XRAY Foot LEFT 3 View In Process Unspecified. EDMS 16:00 Inserted saline lock: 20 gauge in right antecubital area, using aseptic technique. IV aa5 inserted by CELINA Whitmore tech. 16:10 EKG done, by materials mgmt tech. reviewed by Cristian MARINELLI. 3 17:06 Phuc Henriquez MD is Hospitalizing Provider. cp 19:02 Report given to VIRGEN Vickers. aa5 19:34 No provider procedures requiring assistance completed. Patient admitted, IV remains in ak1 place. Administered Medications: 16:02 Drug: Zofran 4 mg Route: IVP; Site: right antecubital; aa5 16:10 Follow up: Response: No adverse reaction aa5 16:04 Drug: morphine 4 mg Route: IVP; Site: right antecubital; aa5 16:10 Follow up: Response: No adverse reaction aa5 17:10 Drug: Zosyn 3.375 grams Route: IVPB; Infused Over: 60 mins; Site: right antecubital; aa5 18:02 Follow up: Response: No adverse reaction; IV Status: Completed infusion aa5 17:10 Drug: NS 0.9% 1000 ml Route: IV; Rate: 1 bolus; Site: right antecubital; aa5 18:03 Follow up: IV Status: Completed infusion aa5 17:10 Drug: Insulin Regular Human 10 units {Co-Signature: miguel ángel (Veronica Hernandez RN).} Route: IVP; aa5 Site: right antecubital; 18:03 Follow up: Response: No adverse reaction; Blood sugar is lowered aa5 18:02 Drug: LevaQUIN 500 mg Volume: 100 ml; Route: IVPB; Infused Over: 60 mins; Site: right aa5 antecubital; 18:27 Follow up: Response: No adverse reaction aa5 19:00 Follow up: IV Status: Completed infusion ak1 Point of Care Testing: Blood Glucose: 16:07 Blood Glucose: 346 mg/dL; aa5 18:04 Blood Glucose: 195 mg/dL; aa5 Ranges: Outcome: 17:07 Decision to Hospitalize by Provider. cp 19:37 Condition: good ak 19:59 Admitted to Med/surg accompanied by tech, via wheelchair, room 212, with chart, Report ak1 called to [place] 19:59 Instructed on the need for admit. 20:40 Patient left the ED. ak1 Signatures: Dispatcher [employer] EDMS Zara Yao, RN America Mrose Roman, MD MD rn Calderon, Audri RN VIRGEN [email or web address] Alee Leos RN RN ak1 Cristian Platt PA PA cp Leal, Jahala, RN RN [email or web address] Myranda Gonzalez mt, Shakira [facility] Marielena Almazan ma Veronica [email or web address] Corrections: (The following items were deleted from the chart) 16:11 16:11 Inserted saline lock: 20 gauge in right antecubital area, using aseptic aa5 technique. Blood collected. nj
[2018-09-20] MEDS ORDERED: INSULIN -REGULAR HUMAN 50 UNIT/0.5 ML ML ONE (17:10)
[2018-09-20] MEDS ORDERED: NA CHLORIDE 0.9% 1,000 ML ONE (17:11)
[2018-09-20] MEDS ORDERED: PIPER/TAZO/NS 3.375gm 3.375 GM/100 ML BAG ONE (17:11)
[2018-09-20] MEDS ORDERED: Levofloxacin500mg IV 500 MG/100 ML BAG IV ONE (17:11)
--- NOTE | 2018-09-20 17:50 | EKG ---
Test Date: 2018-09-20 Test Time: 15:49:40 Retail Consultant: EDILSON MEASUREMENT RESULTS: Intervals: Rate: 87 MA: 164 QRSD: 86 QT: 338 QTc: 406 [place]: P: 53 MA: 164 QRS: 4 T: 52 INTERPRETIVE STATEMENTS: Normal sinus rhythm Normal ECG Compared to ECG 08/24/2018 00:11:36 No significant changes Electronically Signed On 09-20-18 17:48:37 CDT by Khanh Christopher
[2018-09-20 18:05] LABS: Urine Bacteria NONE SEEN /HPF (NONE SEEN); Urine Culture Reflex Order NOT NEEDED
[2018-09-20 18:06] LABS: Urine Blood 1+ (NEG); Urine Glucose 2+ (NEG); Urine Protein 2+ (NEG); Urine pH 5.5 (5.0-7.0)
[2018-09-20] MEDS ORDERED: ACETAMINOPHEN 500 MG TAB PO PRN (20:15)
[2018-09-20] MEDS ORDERED: Levofloxacin500mg IV 500 MG/100 ML BAG IV SCH (20:15)
[2018-09-20] MEDS ORDERED: ONDANSETRON 4 MG/2 ML VIAL IV PRN (20:15)
--- NOTE | 2018-09-20 20:19 | P.HP ---
Certification for Inpatient Patient admitted to: Inpatient With expected LOS: >2 Midnights Practitioner: I am a practitioner with admitting privileges, knowledge of patient current condition, hospital course, and medical plan of care. 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 Over the time, the became ulcerative lesions. A couple of weeks ago, he came to ER and was prescribed oral antibiotics. Despite to finish the treatment , the lesions got worse. He denied fever or chills. He also has a small ulcer with black center on the right foot. Lab work shows leukocytosis 11.7K, elevated creatinine 1.52, possible close to his baseline, normal lactate and procalcitonin. Foot XR shows no bone involvement, Venous doppler does not show DVT. Allergies No Known Allergies Allergy (Unverified 04/04/17 13:02) Home Medications: Metformin HCl 500 mg PO BID 04/14/17 Sertraline [Zoloft*] 150 mg PO DAILY 04/14/17 hydroCHLOROthiazide [Hydrochlorothiazide] 25 mg PO DAILY 04/14/17 Dulaglutide [Trulicity] 0.75 mg SQ EVERY 7TH DAY 11/17/17 Gabapentin [Neurontin*] 100 mg PO TID 11/17/17 levoFLOXacin [Levaquin*] 750 mg PO DAILY #10 tab 11/19/17 Insulin Aspart [Novolog Flexpen] 40 units SQ TID #1 insuln.pen 11/22/17 Insulin Detemir [Levemir Flextouch] 100 unit SQ BID #1 insuln.pen 11/22/17 Lisinopril [Prinivil*] 10 mg PO DAILY #30 tab 11/22/17 Tramadol HCl [Ultram] 50 mg PO TID PRN #15 tablet 11/22/17 - Past Medical/Surgical History Diabetic: Yes -: IDDM -: HTN -: Hernia -: partial right foot amputation - Family History Family History: Reviewed- Non-Contributory - Social History Smoking Status: Former smoker Alcohol use: No CD- Drugs: No Caffeine use: Yes Place of Residence: Home Review of Systems 10-point ROS is otherwise unremarkable Physical Examination - Physical Exam General: Alert, In no apparent distress HEENT: Atraumatic, PERRLA, Mucous membr. moist/pink, EOMI, Sclerae nonicteric Neck: Supple, 2+ carotid pulse no bruit, No LAD, Without JVD or thyroid abnormality Respiratory: Clear to auscultation bilaterally, Normal air movement Cardiovascular: Regular rate/rhythm, Normal S1 S2 Gastrointestinal: Normal bowel sounds, No tenderness Musculoskeletal: No tenderness Integumentary: Diabetic ulcer (thre small ulcer on the bottom, first and third toe. Also another ulcer with black center, dry, on his right foot, plantar area. ) Neurological: Normal speech, Normal strength at 5/5 x4 extr, Normal tone, Normal affect Lymphatics: No axilla or inguinal lymphadenopathy - Studies Laboratory Data (last 24 hrs) 09/20/18 16:00: PT 11.7, INR 0.99, APTT 28.9 09/20/18 16:00: WBC 11.7 H, Hgb 15.6, Hct 46.3, Plt Count 210 09/20/18 16:00: Sodium 134 L, Potassium 4.3, BUN 20 H, Creatinine 1.52 H, Glucose 357 H, Total Bilirubin 0.3, AST 8 L, ALT 15, Alkaline Phosphatase 157 H Assessment and Plan - Problems (Diagnosis) (1) Diabetic foot ulcer Current Visit: Yes Status: Acute Qualifiers: Diabetic foot ulcer location: toe Diabetes mellitus type: type 2 Laterality: left Non-pressure ulcer stage: with fat layer exposed Qualified Code(s): E11.621 - Type 2 diabetes mellitus with foot ulcer; L97.522 - Non- pressure chronic ulcer of other part of left foot with fat layer exposed (2) CKD (chronic kidney disease) Current Visit: Yes Status: Acute Qualifiers: Chronic kidney disease stage: stage 3 (moderate) Qualified Code(s): N18.3 - Chronic kidney disease, stage 3 (moderate) (3) DM neuropathy, type II diabetes mellitus Current Visit: No Status: Chronic Qualifiers: Diabetes mellitus buttermaker continuous churn insulin use: with snf use Qualified Code( s): E11.40 - Type 2 diabetes mellitus with diabetic neuropathy, unspecified; Z79.4 - terminal worker (current) use of insulin (4) Diabetes mellitus Current Visit: No Status: Chronic Qualifiers: Diabetes mellitus type: type 2 Diabetes mellitus buttermaker continuous churn insulin use: with snf use Diabetes mellitus complication status: with skin complications Diabetes mellitus complication detail: with other skin complication Qualified Code(s): E11.628 - Type 2 diabetes mellitus with other skin complications; Z79.4 - terminal worker (current) use of insulin (5) Hypertension Current Visit: No Status: Chronic Qualifiers: Hypertension type: essential hypertension Qualified Code(s): I10 - Essential (primary) hypertension (6) Obesity Current Visit: No Status: Chronic Qualifiers: Obesity type: due to excess calories Obesity classification: adult class 3 (BMI >= 40) Serious obesity comorbidity presence: with serious comorbidity Body mass index: BMI 40.0-44.9 Qualified Code(s): E66.01 - Morbid (severe) obesity due to excess calories; Z68.41 - Body mass index (BMI) 40.0-44.9, adult - Plan The patient was admitted due to diabetic foot ulcer, continue Zosyn IV, D/C Levaquin and start Vancomycin. Consult Dr Luna. Check HgbA1c, continue SSI for BS control. - Advance Directives Does patient have a Living Will: No Does patient have a Durable POA for Healthcare: No - Code Status/Comfort Care Code Status Assessed: Yes Code Status: Full Code
[2018-09-20 20:42] VITALS: BMI 46.3
[2018-09-20] MEDS: NA CHLORIDE 0.9% 1,000 ML IV SCH (21:42)
[2018-09-20] MEDS: HYDROCODONE/APAP 7.5/325 MG TAB PO PRN (21:43)
[2018-09-20] MEDS: INSULIN -REGULAR HUMAN 50 UNIT/0.5 ML ML SQ SCH (21:43)
[2018-09-20] MEDS ORDERED: DAPTOMYCIN IVPB SCH ×2 (22:00→22:35)
[2018-09-20] MEDS ORDERED: NA CHLORIDE 0.9% IVPB SCH ×2 (22:00→22:35)
[2018-09-20] MEDS ORDERED: DAPTOmycin 400 MG in NA CHLORIDE 0.9% 100 ML IVPB SCH (22:37)
[2018-09-21] MEDS ORDERED: PIPERACIL/TAZO 2.25 GM VIAL IV ONE ×2 (00:20→01:03)
[2018-09-21] MEDS ORDERED: NA CHLORIDE 0.9% 50 ML ONE (00:21)
[2018-09-21] MEDS ORDERED: TRAMADOL HCL 50 MG TAB PO ONE (00:36)
[2018-09-21] MEDS ORDERED: PIPER/TAZO/NS 2.25gm 2.25 GM/50 ML BAG IVPB SCH (01:00)
[2018-09-21] MEDS: PIPER/TAZO/NS 3.375gm 3.375 GM/100 ML BAG IVPB SCH ×3 (01:00→17:54)
[2018-09-21] MEDS ORDERED: NA CHLORIDE 0.9% 100 ML ONE (01:05)
[2018-09-21 05:59] LABS: Absolute Monocytes 0.5 K/uL (0.1-1.3); Absolute Neutrophil 6.8 K/uL (1.8-8.0); Basophils % 0.6 % (0-1.3); Eosinophils % 3.5 % (0-4.4); Hematocrit 41.6 % (39.6-49.0); Lymphocytes % 20.5 % (15.3-44.8); MPV 10.2 fL (7.6-11.3); Monocytes % 5.4 % (3.3-12.3); RBC Red Blood Cell Count 4.77 M/uL (4.33-5.43)
[2018-09-21 06:49] LABS: Potassium 4.3 mmol/L (3.5-5.1)
[2018-09-21] MEDS: NA CHLORIDE 0.9% 1,000 ML IV SCH ×2 (07:20→16:15)
[2018-09-21] MEDS: INSULIN -REGULAR HUMAN 50 UNIT/0.5 ML ML SQ SCH ×4 (07:30→20:58)
--- NOTE | 2018-09-21 07:50 | P.CNS ---
Date of Consult: 09/21/18 Chief Complaint: diabetic foot ulcer History of Present Illness: Wound to left great toe has bee present for several weeks. 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 -: abd hernia sx - Social History Alcohol use: No CD- Drugs: No Caffeine use: Yes Place of Residence: Home Review of Systems 10-point ROS is otherwise unremarkable Physical Examination Temp Pulse Resp BP Pulse Ox 97.8 F 71 20 133/75 96 09/21/18 04:00 09/21/18 04:00 09/21/18 04:00 09/21/18 04:00 09/21/18 04:00 General: Alert, In no apparent distress, Oriented x3 Cardiovascular: No edema, Normal pulses Capillary refill: <2 Seconds Musculoskeletal: No clubbing, No swelling, No contractures, No erythema, No tenderness, No warmth, Other (previous partial first and fifth ray amputations) Integumentary: Diabetic ulcer (ulceration plantar left hallux with dry eschar noted and wound measuring 1cm X 1cm. No periwound erythema, no drainage, no pain on palpation. wound plantar right midfoot with small eschar and wound measuring 0.6cm X 0.4cm. No periwound erythema, no drainage, no pain on palpation) Neurological: Abnormal sensation Laboratory Data (last 24 hrs) 09/20/18 16:00: PT 11.7, INR 0.99, APTT 28.9 09/20/18 16:00: WBC 11.7 H, Hgb 15.6, Hct 46.3, Plt Count 210 09/20/18 16:00: Sodium 134 L, Potassium 4.3, BUN 20 H, Creatinine 1.52 H, Glucose 357 H, Total Bilirubin 0.3, AST 8 L, ALT 15, Alkaline Phosphatase 157 H - Problems (1) Diabetic foot ulcer Current Visit: Yes Status: Acute Plan: santyl to wound daily with saline moistened gauze. Patient to follow up in wound care in 1-2 weeks Qualifiers: Diabetic foot ulcer location: toe Diabetes mellitus type: type 2 Laterality: left Non-pressure ulcer stage: with fat layer exposed Qualified Code(s): E11.621 - Type 2 diabetes mellitus with foot ulcer; L97.522 - Non- pressure chronic ulcer of other part of left foot with fat layer exposed Physician Review: Patient Assessed, Agree with Above Assessment and Plan Time Spent Managing Pts care (In Minutes): 20
[2018-09-21] MEDS ORDERED: VANCOMYCIN 1 GM in NA CHLORIDE 0.9% 500 ML IVPB SCH (09:00)
[2018-09-21] MEDS: COLLAGENASE 30 GM OINTMENT TOP SCH (09:00)
[2018-09-21] MEDS: DAPTOmycin 400 MG in NA CHLORIDE 0.9% 100 ML IVPB SCH (10:00)
[2018-09-21] MEDS ORDERED: D50W 25 GM/50 ML SYRINGE IV PRN (11:14)
[2018-09-21] MEDS ORDERED: GLUCAGON 1 MG/VIAL IM PRN (11:14)
--- NOTE | 2018-09-21 15:59 | RAD REPORT ---
EXAM DESCRIPTION: MRI - Foot Left Wo Cont - 09/21/2018 3:12 pm CLINICAL HISTORY: infection, rule out osteo Plantar wound. COMPARISON: Foot Left 3 View dated 09/20/2018 FINDINGS: Mild soft tissue swelling and subcutaneous edema is present involving the great toe. The T 1 signal of the osseous structures of the visualized foot are intact. No abnormal T1 replacement proc ess seen. No worrisome areas of T2/IR signal abnormality to suggest osteomyelitis. No fracture, dislo cation or aggressive marrow lesion. IMPRESSION: No evidence of osteomyelitis.
--- NOTE | 2018-09-21 16:22 | PN ---
Date of Progress Note: 09/21/2018 Subjective: The patient was seen and examined. Chart reviewed and case discussed with RN. The felicia ent is complaining of pain. No further drainage at this time. The patient was seen by Dr. Luna thi s morning. Medications: List reviewed. Physical Examination: Vital Signs: Temperature 97.3, heart rate 64, blood pressure 146/78, respirations 16, O2 95% on room air. General: Awake, alert, oriented x3 with mild distress, ill-appearing male, morbidly obese, BMI of 46 . CV: S1, S2. Regular rate and rhythm. Peripheral pulses weak. Respiratory: Moving air well bilaterally. No wheezing or stridor. Gastrointestinal: Abdomen is soft, nontender, nondistended. Positive bowel sounds. Extremities: No clubbing, cyanosis, or edema. Neurologic: Nonfocal. Musculoskeletal: Right foot great toe amputation. Left foot has multiple ulcers on the plantar aspe ct. Laboratory Data: Sodium 137, potassium 4.3, chloride 104, CO2 of 27, BUN 17, creatinine 1.26, glucos e 251. Hemoglobin A1c 11%. Calcium 8.4. WBC 9.6, H and H are 14.2 and 41.6, platelets 205, neutrop hils 70%. Blood cultures are pending. Wound cultures from the foot also pending. Assessment And Plan: A 48-year-old male with: 1.Left foot ulcer, diabetic with failed outpatient treatment. We will continue with IV antibiotics. Dr. Luna with Podiatry has been consulted. 2.Morbid obesity, BMI of 46. 3.Essential hypertension, stable. We will resume home medications. 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 Continue sliding scale insulin and monitor blood glucose levels. It is very much uncontrolled with hemoglobin A1c of 11%. 5.GI and DVT prophylaxis addressed. We will obtain MRI. We will follow up with Dr. Luna's recommendations. SA/MODL Voice ID: [id number] Report ID: [id number]
[2018-09-21] MEDS ORDERED: ENOXAPARIN 30 MG/0.3 ML SQ SCH (17:00)
[2018-09-21] MEDS: ENOXAPARIN 40 MG/0.4 ML SQ SCH (17:54)
[2018-09-21] MEDS: HYDROCODONE/APAP 7.5/325 MG TAB PO PRN (18:00)
[2018-09-21] MEDS ORDERED: INSULIN GLARGINE 100 UNITS/ML SQ SCH (21:00)
[2018-09-22] MEDS: HYDROCODONE/APAP 7.5/325 MG TAB PO PRN ×3 (00:55→18:28)
[2018-09-22] MEDS: PIPER/TAZO/NS 3.375gm 3.375 GM/100 ML BAG IVPB SCH ×3 (00:56→17:23)
[2018-09-22] MEDS: NA CHLORIDE 0.9% 1,000 ML IV SCH ×3 (01:00→14:39)
[2018-09-22 07:29] LABS: Absolute Lymphocytes (CBC) 1.5 K/uL (0.7-4.9); Absolute Monocytes 0.4 K/uL (0.1-1.3); Absolute Neutrophil 5.2 K/uL (1.8-8.0); Basophils % 0.7 % (0-1.3); Eosinophils % 3.8 % (0-4.4); Hematocrit 40.3 % (39.6-49.0); Lymphocytes % 20.4 % (15.3-44.8); MPV 10.4 fL (7.6-11.3); Monocytes % 5.7 % (3.3-12.3); RBC Red Blood Cell Count 4.62 M/uL (4.33-5.43)
[2018-09-22 07:48] LABS: Potassium 4.4 mmol/L (3.5-5.1)
[2018-09-22] MEDS: INSULIN -REGULAR HUMAN 50 UNIT/0.5 ML ML SQ SCH ×6 (08:09→22:17)
[2018-09-22] MEDS: COLLAGENASE 30 GM OINTMENT TOP SCH (08:53)
[2018-09-22] MEDS: DAPTOmycin 400 MG in NA CHLORIDE 0.9% 100 ML IVPB SCH (10:14)
[2018-09-22] MEDS: LISINOPRIL 20 MG TAB PO SCH (12:53)
[2018-09-22] MEDS: AMLODIPINE 10 MG TAB PO SCH (12:54)
[2018-09-22] MEDS: GABAPENTIN 300 MG CAP PO SCH ×2 (12:55→22:17)
--- NOTE | 2018-09-22 16:34 | PN ---
Subjective: The patient seen and examined, chart reviewed, and case discussed with RN. The patient is doing well. Does complain of some pain, otherwise has been able to ambulate. Medications: List reviewed. Objective: Vital signs: Temperature 96.2, heart rate 74, blood pressure 187/85, respirations 16, O2 99% on room air. General: Awake, alert, oriented x3, in some mild distress. Morbidly obese, BMI 46.3. CV: S1, S2. Regular rate and rhythm. Peripheral pulses present. Respiratory: Moving air well bilaterally. No wheezing or stridor. No use of accessory muscles Lindsay rointestinal: Abdomen is soft, nontender, nondistended. Positive bowel sounds. No guarding or rigi dity. Extremities: No clubbing, cyanosis, or edema. Neuro: Cranial nerves 2 through 12 intact grossly. No focal neurological deficit. The patient does report decreased sensation in a stocking-glove distribution. Skin: Plantar ulcer of the left foot. Erythema significantly improved. Laboratory Data: Sodium 137, potassium 4.4 chloride 106, CO2 26, BUN 16, creatinine 1.16, glucose 37 5, calcium 8.1. WBC 7.5, H and H 13.9 and 40.3, platelets 193. Blood cultures, no growth to date. Wound cultures growing out coagulase-positive staph, possibly MRSA. MRI of the foot shows no evidenc e of osteomyelitis. Assessment: A 48-year-old male with: 1.Left foot ulcer, diabetic with failed outpatient treatment. The patient was on clindamycin and Ba ctrim. For now, we will continue on IV antibiotics. Blood cultures are negative. Wound cultures may be growing out methicillin-resistant Staphylococcus aureus. We will await culture results. Winston Luna's input. No intervention at this time. Osteomyelitis has been ruled out. 2.Morbid obesity. Body mass index 46. 3.Essential hypertension, not well controlled. We will adjust home medications. 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 We will adjust sl iding scale insulin and resume home dose as well. Monitor Accu-Cheks, uncontrolled. Hemoglobin A1c is 11%. 5.Deep venous thrombosis prophylaxis with Lovenox. Plan: Follow up on wound cultures. Likely DC in the next 24 hours on oral versus IV antibiotics dep ending on culture results. SA/MODL Voice ID: [id number] Report ID: [id number]
[2018-09-22] MEDS: ENOXAPARIN 40 MG/0.4 ML SQ SCH (17:24)
[2018-09-22] MEDS ORDERED: INSULIN GLARGINE 100 UNITS/ML SQ SCH (21:00)
[2018-09-23] MEDS: PIPER/TAZO/NS 3.375gm 3.375 GM/100 ML BAG IVPB SCH (00:58)
[2018-09-23 05:04] LABS: Absolute Lymphocytes (CBC) 1.8 K/uL (0.7-4.9); Absolute Monocytes 0.4 K/uL (0.1-1.3); Absolute Neutrophil 5.3 K/uL (1.8-8.0); Basophils % 0.7 % (0-1.3); Eosinophils % 4.1 % (0-4.4); Hematocrit 41.2 % (39.6-49.0); Lymphocytes % 22.8 % (15.3-44.8); MPV 10.1 fL (7.6-11.3); Monocytes % 5.4 % (3.3-12.3); RBC Red Blood Cell Count 4.74 M/uL (4.33-5.43)
[2018-09-23] MEDS: NA CHLORIDE 0.9% 1,000 ML IV SCH ×2 (06:33→08:15)
[2018-09-23] MEDS: HYDROCODONE/APAP 7.5/325 MG TAB PO PRN (06:34)
[2018-09-23] MEDS: INSULIN -REGULAR HUMAN 50 UNIT/0.5 ML ML SQ SCH ×3 (07:30→11:17)
[2018-09-23] MEDS: LISINOPRIL 20 MG TAB PO SCH (08:38)
[2018-09-23] MEDS: AMLODIPINE 10 MG TAB PO SCH (08:38)
[2018-09-23] MEDS: GABAPENTIN 300 MG CAP PO SCH (08:38)
[2018-09-23] MEDS: COLLAGENASE 30 GM OINTMENT TOP SCH (08:38)
[2018-09-23 08:45] VITALS: O2SAT 97
[2018-09-23] MEDS ORDERED: hydroCHLOROthiazide 25 MG TAB PO SCH (09:00)
[2018-09-23] MEDS ORDERED: AMLODIPINE 5 MG TAB PO SCH (09:00)
[2018-09-23] MEDS ORDERED: DOXYCYCLINE 100 MG CAP PO SCH (09:00)
[2018-09-23 09:47] VITALS: BP 140/76; TEMP 97
--- NOTE | 2018-09-24 03:04 | DS ---
Date of Discharge: 09/23/2018 Procedures: None. Admitting Diagnoses: 1.Left foot ulcer, diabetic. 2.Chronic kidney disease stage 3. 3.Diabetes mellitus type 2 with neuropathy with long-term use of insulin. 4.Essential hypertension. 5.Obesity. Discharge Diagnoses: 1.Left foot ulcer, diabetic, with failed outpatient treatment secondary to Staphylococcus aureus met hicillin sensitive. Osteomyelitis ruled out. 2.Morbid obesity, BMI 46. 3.Essential hypertension, not well controlled. 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 A1c is 11%. Hospital Course: The patient is a 48-year-old male who was admitted to the hospital for diabetic sharmin t ulcer with failed outpatient treatment. He was on clindamycin and Bactrim. The patient had an elbert vated white count of 11.7; however, he was not septic. Procalcitonin and lactate were normal. The p atient was started on broad-spectrum IV antibiotics and cultures were obtained. Dr. Luna with [facility] was consulted. He did not recommend any surgical intervention at that time. The patient was cou nseled regarding his diabetes which was very much uncontrolled at 11% A1c. He does not have a PCP. However, Social Work helped him make an appointment with a PCP in the area. The patient's insulin do se was adjusted. The patient's cultures grew out Staph aureus from the foot wound. MRI was done whi ch ruled out osteomyelitis. The patient was then transitioned to oral antibiotics and discharged shimon e in a stable condition. Activity: As tolerated. Medications: As per medication reconciliation list. He will continue Santyl ointment and doxycyclin e for a total of 10 days. Followup: He is to follow up with Dr. Luna, Podiatry, in the next week or two and to extent antibio tic treatment if needed. Follow up with primary care physician in 2 to 3 days. Return to ER for wor sening condition. Diet: Diabetic diet. Activity: As tolerated. Physical Examination: General: Awake, alert, oriented x3, not in any acute distress. Morbidly obese male. CV: S1, S2. No murmurs. Respiratory: Moving air well bilaterally. No wheezing. Gastrointestinal: Abdomen is soft, nontender, nondistended. Positive bowel sounds. Extremities: No clubbing, cyanosis, or edema. Neuro: Nonfocal. Skin: Left foot plantar aspect dry ulceration. No surrounding erythema. Total time spent discharging the patient was 37 minutes. /OSMEL Voice ID: [id number] Report ID: [id number]
== END 2018-09-23 12:06 | disposition home or self-care (01) | DRG 638 ==
LOC: ER 14:58 → ERHOLD 17:07 → 2ND 20:01
PROVIDERS: ADMIT Family Medicine; ATTEND Family Medicine
DX: E11.621 Type 2 diabetes mellitus with foot ulcer (principal); Z68.42 Body mass index [BMI] 45.0-49.9, adult; L97.522 Non-pressure chronic ulcer of other part of left foot with fat layer exposed; B95.61 Methicillin susceptible Staphylococcus aureus infection as the cause of diseases classified elsewhere; E11.22 Type 2 diabetes mellitus with diabetic chronic kidney disease; I12.9 Hypertensive chronic kidney disease with stage 1 through stage 4 chronic kidney disease, or unspecified chronic kidney disease; N18.3 Chronic kidney disease, stage 3 (moderate); E11.42 Type 2 diabetes mellitus with diabetic polyneuropathy; E11.65 Type 2 diabetes mellitus with hyperglycemia; E66.01 Morbid (severe) obesity due to excess calories; Z79.4 Long term (current) use of insulin; Z87.891 Personal history of nicotine dependence; Z89.431 Acquired absence of right foot; Z88.1 Allergy status to other antibiotic agents; Z91.041 Radiographic dye allergy status
CPT/HCPCS: 36415; 80048; 80076; 81003; 81015; 82962; 83036; 83605; 84145; 85025; 85610; 85652; 85730; 86140; 87040; 87070; 87077; 87186; 87205; 93005; 93971; 94760; 96365; 96367; 96375; 99285; J0878; J1650; J2405; J2543; J3590; J7030

== ENCOUNTER 2018-10-02 07:23 | Inpatient (IN) | payer SELFPAY ==
--- OUTSIDE RECORDS SUMMARY | 2018-10-02 07:26 | XMS REPORT ---
:1970 [facility] [address] [place] [address] Care Team Providers Name Role Phone Unavailable Unavailable Unavailable Problems This patient has no known problems. Allergies, Adverse Reactions, Alerts This patient has no known allergies or adverse reactions. Medications This patient has no known medications.
--- OUTSIDE RECORDS SUMMARY | 2018-10-02 07:26 | XMS REPORT | Continuity of Care Document ---
:1970 Author Organization Interface Problems Problem Status Onset Classification Date Comments Source Date Reported SWO[facility]EN FOOT Active [facility] [address] [place] Medications Medication Details Route Status Patient Ordering Order Source Instructions Provider Date Allergies, Adverse Reactions, Alerts Substance Category Reaction Severity Reaction Status Date Comments Source type Reported Immunizations Immunization Date Given Site Status Last Updated Comments Source Results Order Name Results Value Reference Date Interpretation Comments Source Range Ext Lower Ext Lower EXAM: Right lower extremity venous Doppler ultrasound 03/18 - [facility] Venous Venous /2017 - [place] Doppler Doppler HISTORY: Right lower extremity pain [...] region measuring up to 4.6 cm. SL: [id number] Foot 3 Foot 3 Exam: Foot 3 views bilateral DX 03/18 - [facility] views - [place] bilateral bilateral Clinical Indication: - bilateral foot [...] osseous abnormality of the left foot. SL: [id number] Vital Signs Vital Sign Value Date Comments Source Encounters Location Location Encounter Encounter Reason Attending ADM DC Status Source Details Type Number For Provider Date Date Visit Procedures Procedure Code Date Perfomer Comments Source
[2018-10-02 08:23] LABS: Absolute Lymphocytes (CBC) 1.4 K/uL (0.7-4.9); Absolute Monocytes 0.5 K/uL (0.1-1.3); Absolute Neutrophil 6.4 K/uL (1.8-8.0); Basophils % 0.8 % (0-1.3); Eosinophils % 3.8 % (0-4.4); Hematocrit 46.7 % (39.6-49.0); Lymphocytes % 15.8 % (15.3-44.8); MPV 10.2 fL (7.6-11.3); Monocytes % 5.5 % (3.3-12.3); RBC Red Blood Cell Count 5.42 M/uL (4.33-5.43)
--- NOTE | 2018-10-02 08:29 | RAD REPORT ---
EXAM DESCRIPTION: RAD - Foot Left 3 View - 10/02/2018 8:14 am CLINICAL HISTORY: eval for osteo;Pain COMPARISON: Foot Left 3 View dated 09/20/2018 FINDINGS: Soft tissue swelling is seen involving the great toe and forefoot. No fracture, dislocatio n or radiographic finding to indicate osteomyelitis. Prominent posterior and plantar calcaneal spurs are seen.
[2018-10-02 08:34] LABS: BUN Blood Urea Nitrogen 17 mg/dL (7-18); Bicarbonate 24 mmol/L (21-32); Glucose Level 359 mg/dL (74-106); Potassium 4.2 mmol/L (3.5-5.1); Sodium Level 134 mmol/L (136-145)
--- NOTE | 2018-10-02 09:15 | ER ---
Nurse's Notes [facility] Name: Lion Pickard Age: 48 yrs Sex: Male : 1970 Arrival Date: 10/02/2018 Time: 07:25 Bed 19 Private MD: Diagnosis: Cellulitis of left lower limb;Failure of outpatient therapy;Hyperglycemia, unspecified Presentation: 10/02 07:39 Presenting complaint: Patient states: Pain to L foot is getting worse. Pt reports he ss was discharged from hospital after being diagnosed with a staph infection to L foot. Pt was supposed to follow up in wound healing center with Dr. Luna today at 1000, but reports he could not wait that long as he was in so much pain. Transition of care: patient was not received from another setting of care. Onset of symptoms is unknown. Risk Assessment: Do you want to hurt yourself or someone else? Patient reports no desire to harm self or others. Initial Sepsis Screen: Does the patient meet any 2 criteria? HR > 90 bpm. Does the patient have a suspected source of infection? Yes: Skin breakdown/wound. Care prior to arrival: None. 07:39 Method Of Arrival: Ambulatory ss 07:39 Acuity: BATSHEVA 3 ss Historical: - Allergies: 07:43 IV contrast; ss 07:43 Vancomycin; ss - Home Meds: 07:43 amlodipine 5 mg tab [Active]; atorvastatin 40 mg Oral tab [Active]; carvedilol 12.5 mg ss Oral tab [Active]; hydrochlorothiazide 25 mg Oral tab [Active]; Lantus 100 unit/mL Sub-Q soln [Active]; lisinopril 20 mg Oral tab [Active]; metformin 1,000 mg Oral tab 1 tab 2 times per day [Active]; Novolog 100 unit/mL Sub-Q soln [Active]; tramadol 50 mg Oral tab [Active]; - PMHx: 07:43 Diabetes - IDDM; Hernia; Hypertension; neuropathy; ss - Immunization history:: Adult Immunizations up to date. - Social history:: Smoking status: Patient/guardian denies using tobacco. - Ebola Screening: : Patient denies exposure to infectious person Patient denies travel to an Ebola-affected area in the 21 days before illness onset. - Family history:: not pertinent. - Hospitalizations: : No recent hospitalization is reported. Screenin:45 Abuse screen: Denies threats or abuse. Denies injuries from another. Nutritional sv screening: No deficits noted. Tuberculosis screening: No symptoms or risk factors identified. Fall Risk None identified. Assessment: 07:45 General: Appears in no apparent distress. uncomfortable, well developed, Behavior is sv calm, cooperative, appropriate for age. Pain: Complains of pain in left foot Pain currently is 10 out of 10 on a pain scale. Is continuous. Neuro: Level of Consciousness is awake, alert, obeys commands, Oriented to person, place, time, situation, Moves all extremities. Full function Gait is steady. Respiratory: Respiratory effort is even, unlabored, Respiratory pattern is regular, symmetrical. Derm: Skin is pink, warm \T\ dry. Wound noted ball of left foot and plantar aspect of left first toe Wound is 2 separate decubitus wounds noted. Pt had it wrapped and dressing was removed by Dr English. 09:35 Reassessment: Patient appears in no apparent distress at this time. No changes from sv previously documented assessment. Patient and/or family updated on plan of care and expected duration. Pain level reassessed. Patient is alert, oriented x 3, equal unlabored respirations, skin warm/dry/pink. 10:00 Reassessment: Attempted to call report, nurse unavailable. sv 10:41 Reassessment: Nurse to call back for report. sv 11:19 Reassessment: Patient appears in no apparent distress at this time. Patient and/or sv family updated on plan of care and expected duration. Pain level reassessed. Patient is alert, oriented x 3, equal unlabored respirations, skin warm/dry/pink. Vital Signs: 07:43 BP 175 / 100; Pulse 94; Resp 18; Temp 97.0(TE); Pulse Ox 97% on R/A; Weight 142.88 kg; ss Height 5 ft. 9 in. (175.26 cm); Pain 10/10; 08:30 BP 135 / 87; Pulse 87; Resp 16; Pulse Ox 98% ; sv 09:00 BP 166 / 105; Pulse 82; Resp 16; Pulse Ox 100% ; sv 09:14 BP 161 / 98; sv 09:52 Pulse 76; Resp 18; Pulse Ox 99% ; sv 10:17 BP 135 / 92; Pulse 72; Resp 18; Pulse Ox 98% ; sv 07:43 Body Mass Index 46.52 (142.88 kg, 175.26 cm) ED Course: 07:25 Patient arrived in ED. as 07:37 Mohsen English MD is Attending Physician. rn 07:42 Triage completed. ss 07:43 Arm band placed on left wrist. ss 07:45 Patient has correct armband on for positive identification. Bed in low position. Call light in reach. Adult w/ patient. Pulse ox on. NIBP on. Door closed. Head of bed elevated. 07:45 Initial lab(s) drawn, by ia, sent to lab. First set of blood cultures drawn by ia. Wound culture swab sent to lab. Inserted saline lock: 20 gauge in right forearm, using aseptic technique. Blood collected. Flushed right forearm with 5 ml normal saline. 08:00 Second set of blood cultures drawn by ia. sv 08:06 Zara Yao RN is Primary Nurse. sv 08:07 X-ray(s) taken. sv 08:15 XRAY Foot LEFT 3 View In Process Unspecified. EDMS 09:13 Dilcia Ramírez MD is Hospitalizing Provider. rn 09:13 Westergren Sedrate Sent. sv 09:13 Basic Metabolic Panel Sent. sv 09:13 CBC with Diff Sent. sv 09:35 Wound care: to decubitus located on plantar aspect of left first toe and ball of left sv foot was cleaned with with NS and gauze, dressed with 4X4s, Kerlix, wet to dry dressing, 2 decubitus wounds, 1st on the ball of the foot is 2.2x1cm and the 2nd under the great toe is 0.7x0.6 cm. 09:53 No provider procedures requiring assistance completed. Patient admitted, IV remains in sv place. intact. Administered Medications: 09:35 Drug: Doxycycline 100 mg Route: PO; sv 10:00 Follow up: Response: No adverse reaction sv 09:35 Drug: Clindamycin 600 mg Route: IVPB; Infused Over: 30 mins; Site: right forearm; sv 10:00 Follow up: Response: No adverse reaction; IV Status: Completed infusion; IV Intake: 50mlsv Point of Care Testing: Blood Glucose: 07:39 Blood Glucose: 325 mg/dL; em1 Ranges: Intake: 10:00 IV: 50ml; Total: 50ml. sv Outcome: 09:13 Decision to Hospitalize by Provider. rn 11:19 Admitted to Med/surg accompanied by tech, family with patient, via wheelchair, room sv 423, with chart, Report called to Summer NEW 11:19 Condition: stable 11:19 Instructed on the need for admit. 11:32 Patient left the ED. sv Signatures: Dispatcher [employer] Zara Swenson RN RN sv Martinez, Amelia as Nieto, Roman, MD MD rn Asa, [facility] Catherine Kennedy RN RN
--- NOTE | 2018-10-02 09:15 | EDPHYS ---
Physician Documentation [facility] Name: Lion Pickard Age: 48 yrs Sex: Male : 1970 Arrival Date: 10/02/2018 Time: 07:25 Bed 19 Private MD: ED Physician Mohsen English HPI: 10/02 08:12 This 48 yrs old Male presents to ER via Ambulatory with complaints of Feet rn Swelling. 08:12 The patient presents with cellulitis of the left foot. Onset: The symptoms/episode rn began/occurred 2 week(s) ago. Modifying factors: the symptoms are alleviated by nothing, the symptoms are aggravated by squeezing the lesion and expressing the contents, touching. Severity of symptoms: At their worst the symptoms were mild, in the emergency department the symptoms are unchanged. The patient has experienced a previous episode. Reports left foot swelling and drainage, recently admitted to hospital for this and treated with abx, reports feels like getting worse, + increased drainage and pain, had wound care appt today, but couldn't wait. Also high blood sugar. . Historical: - Allergies: 07:43 IV contrast; ss 07:43 Vancomycin; ss - Home Meds: 07:43 amlodipine 5 mg tab [Active]; atorvastatin 40 mg Oral tab [Active]; carvedilol 12.5 mg ss Oral tab [Active]; hydrochlorothiazide 25 mg Oral tab [Active]; Lantus 100 unit/mL Sub-Q soln [Active]; lisinopril 20 mg Oral tab [Active]; metformin 1,000 mg Oral tab 1 tab 2 times per day [Active]; Novolog 100 unit/mL Sub-Q soln [Active]; tramadol 50 mg Oral tab [Active]; - PMHx: 07:43 Diabetes - IDDM; Hernia; Hypertension; neuropathy; ss - Immunization history:: Adult Immunizations up to date. - Social history:: Smoking status: Patient/guardian denies using tobacco. - Ebola Screening: : Patient denies exposure to infectious person Patient denies travel to an Ebola-affected area in the 21 days before illness onset. - Family history:: not pertinent. - Hospitalizations: : No recent hospitalization is reported. ROS: 08:12 Constitutional: Negative for fever, chills, and weight loss, Eyes: Negative for injury, rn pain, redness, and discharge, Neck: Negative for injury, pain, and swelling, Cardiovascular: Negative for chest pain, palpitations, and edema, Respiratory: Negative for shortness of breath, cough, wheezing, and pleuritic chest pain, Abdomen/GI: Negative for abdominal pain, nausea, vomiting, diarrhea, and constipation, MS/Extremity: Negative for injury and deformity, Skin: + left foot infection Neuro: Negative for headache, numbness, tingling, and seizure. Exam: 08:12 Constitutional: This is a well developed, well nourished patient who is awake, alert, rn and in no acute distress. Head/Face: Normocephalic, atraumatic. Eyes: Pupils equal round and reactive to light, extra-ocular motions intact. Lids and lashes normal. Conjunctiva and sclera are non-icteric and not injected. Cornea within normal limits. Periorbital areas with no swelling, redness, or edema. ENT: MMM Cardiovascular: Regular rate and rhythm. No pulse deficits. Respiratory: Lungs have equal breath sounds bilaterally, clear to auscultation Skin: Warm, + left foot ulcerations x2 at bottom of great toe, purulence and foul smell, surrounding erythema and blanching skin. MS/ Extremity: Pulses equal, no cyanosis. Neurovascular intact. Full, normal range of motion. Equal circumference. Vital Signs: 07:43 BP 175 / 100; Pulse 94; Resp 18; Temp 97.0(TE); Pulse Ox 97% on R/A; Weight 142.88 kg; ss Height 5 ft. 9 in. (175.26 cm); Pain 10/10; 08:30 BP 135 / 87; Pulse 87; Resp 16; Pulse Ox 98% ; sv 09:00 BP 166 / 105; Pulse 82; Resp 16; Pulse Ox 100% ; sv 09:14 BP 161 / 98; sv 09:52 Pulse 76; Resp 18; Pulse Ox 99% ; sv 10:17 BP 135 / 92; Pulse 72; Resp 18; Pulse Ox 98% ; sv 07:43 Body Mass Index 46.52 (142.88 kg, 175.26 cm) ss MDM: 07:37 Patient medically screened. rn 09:12 Differential diagnosis: cellulitis, osteo, hyperglycemia. Data reviewed: vital signs, rn nurses notes, lab test result(s), radiologic studies, plain films, and as a result, I will admit patient. Counseling: I had a detailed discussion with the patient and/or guardian regarding: the historical points, exam findings, and any diagnostic results supporting the discharge/admit diagnosis, lab results, radiology results, the need for further work-up and treatment in the hospital. Response to treatment: the patient's symptoms have mildly improved after treatment, and as a result, I will admit patient. Admission orders: after a detailed discussion of the patient's condition and case, the admit orders are written by me. 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 10/02 07:42 Order name: Glucose, Ancillary Testing; Complete Time: 07:45 EDMS 10/02 07:45 Order name: CBC with Diff rn 10/02 07:45 Order name: Basic Metabolic Panel 10/02 07:45 Order name: Westergren Sedrate rn 10/02 07:45 Order name: Procalcitonin; Complete Time: 08:57 rn 10/02 07:45 Order name: Lactate; Complete Time: 08:57 rn 10/02 07:45 Order name: XRAY Foot LEFT 3 View; Complete Time: 08:31 rn 10/02 07:45 Order name: Ketone, Serum; Complete Time: 08:57 rn 10/02 07:45 Order name: Wound Culture rn 10/02 07:45 Order name: Blood Culture Adult (2) rn 10/02 07:45 Order name: CBC with Automated Diff; Complete Time: 09:08 EDRI 10/02 07:45 Order name: Basic Metabolic Panel; Complete Time: 08:57 EDRI 10/02 07:45 Order name: Sedimentation Rate, Westergren; Complete Time: 09:08 EDRI 10/02 07:45 Order name: IV Start; Complete Time: 08:11 rn Administered Medications: 09:35 Drug: Doxycycline 100 mg Route: PO; sv 10:00 Follow up: Response: No adverse reaction sv 09:35 Drug: Clindamycin 600 mg Route: IVPB; Infused Over: 30 mins; Site: right forearm; sv 10:00 Follow up: Response: No adverse reaction; IV Status: Completed infusion; IV Intake: 50mlsv Point of Care Testing: Blood Glucose: 07:39 Blood Glucose: 325 mg/dL; em1 Ranges: Critical Glucose Levels:Adult <50 mg/dl or >400 mg/dl <40 mg/dl or >180 mg/dl Disposition: 10/02/18 09:13 Hospitalization ordered by Dilcia Ramírez for Inpatient Admission. Preliminary diagnosis are Cellulitis of left lower limb, Failure of outpatient therapy, Hyperglycemia, unspecified. - Bed requested for Telemetry/MedSurg (Inpatient). - Status is Inpatient Admission. sv - Condition is Stable. - Problem is an ongoing problem. - Symptoms have worsened. UTI on Admission? No Signatures: Dispatcher [employer] EDMS Zara Yao RN RN Chelita Gardner RN RN dw Nieto, Roman, MD MD rn Smirch, Shelby, RN RN ss Corrections: (The following items were deleted from the chart) 09:52 09:13 Hospitalization Ordered by Dilcia Ramírez MD for Inpatient Admission. Preliminary dw diagnosis is Cellulitis of left lower limb; Failure of outpatient therapy; Hyperglycemia, unspecified. Bed requested for Telemetry/MedSurg (Inpatient). Status is Inpatient Admission. Condition is Stable. Problem is an ongoing problem. Symptoms have worsened. UTI on Admission? No. rn 11:32 09:52 10/02/2018 09:13 Hospitalization Ordered by Dilcia Ramírez MD for Inpatient sv Admission. Preliminary diagnosis is Cellulitis of left lower limb; Failure of outpatient therapy; Hyperglycemia, unspecified. Bed requested for Telemetry/MedSurg (Inpatient). Status is Inpatient Admission. Condition is Stable. Problem is an ongoing problem. Symptoms have worsened. UTI on Admission? No. dw
[2018-10-02] MEDS ORDERED: DOXYCYCLINE 100 MG CAP PO ONE (09:29)
[2018-10-02] MEDS ORDERED: CLINDAMYCIN 600MG/D5W 600 MG/50 ML BAG IV ONE (09:29)
[2018-10-02] MEDS: INSULIN -REGULAR HUMAN 50 UNIT/0.5 ML ML SQ SCH ×3 (11:58→21:00)
[2018-10-02 15:34] VITALS: BMI 46.5
--- NOTE | 2018-10-02 15:44 | P.HP ---
Certification for Inpatient Patient admitted to: Inpatient With expected LOS: >2 Midnights Practitioner: I am a practitioner with admitting privileges, knowledge of patient current condition, hospital course, and medical plan of care. 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 SInce he has left from the hospital, the ulceration has gotten worse and continues to have drainage. He denies any fevers, chills, nausea, vomiting, cp, sob since he has been discharged from here. In the ER, he was hemodynamically stable, in no acute distress and AAOx3. His lab work was remarkable for creatinine of 1.31 (it was normal at discharge on ). His wound cultures from previous admission were positive for Staph aureus, Klebsiella Oxytoca and Pantoea Agglomerans. At the time of my exam, he was AAOx3, in no acute distress and hemodynamically stable. He was admitted for failed outpatient treatment for Left foot cellulitis. Allergies vancomycin Allergy (Verified 09/20/18 20:44) Hives iv contrast Allergy (Uncoded 09/20/18 20:44) Hives Home medications list reviewed: Yes Home Medications: Amlodipine [Norvasc*] 5 mg PO DAILY 09/22/18 Gabapentin [Neurontin] 600 mg PO TID 09/22/18 Hydrocodone 5/APAP 325 [[place] 5/325*] 1 tab PO Q6H PRN 09/22/18 Lisinopril 40 mg PO DAILY 09/22/18 hydroCHLOROthiazide [Hydrochlorothiazide*] 25 mg PO DAILY 09/22/18 Collagenase [Santyl Ointment*] 1 appl TOP DAILY #1 tube 09/23/18 Doxycycline Monohydrate 100 mg PO BID #16 tablet 09/23/18 Aspirin Chewable [Aspirin Chewable*] 81 mg PO DAILY 10/02/18 Atorvastatin Calcium [Lipitor] 80 mg PO BEDTIME 10/02/18 Carvedilol [Coreg*] 12.5 mg PO BID 10/02/18 Insulin Aspart [Novolog] 45 unit SQ TIDWM 10/02/18 Insulin Detemir [Levemir] 120 unit SQ BID 10/02/18 Metformin ER [Glucophage ER*] 500 mg PO BID 10/02/18 - Past Medical/Surgical History Has patient received pneumonia vaccine in the past: No Diabetic: Yes -: IDDM -: HTN -: Hernia -: neuropathy -: right foot 1st 2nd and 5th toe amputation -: abd hernia sx - Social History Smoking Status: Current some day smoker Alcohol use: No CD- Drugs: No Caffeine use: Yes Place of Residence: Home Review of Systems 10-point ROS is otherwise unremarkable Physical Examination - Vital Signs Temperature: 97.6 F Blood Pressure: 175/94 Pulse: 87 Respirations: 19 Pulse Ox (%): 98 - Physical Exam General: Alert, In no apparent distress, Oriented x3 HEENT: Atraumatic, PERRLA, Mucous membr. moist/pink, EOMI, Sclerae nonicteric Neck: Supple, 2+ carotid pulse no bruit, No LAD, Without JVD or thyroid abnormality Respiratory: Clear to auscultation bilaterally, Normal air movement Cardiovascular: Regular rate/rhythm, Normal S1 S2 Gastrointestinal: Normal bowel sounds, No tenderness Musculoskeletal: Other (Right foot great toe amputation. Left foot has multiple ulcers on the plantar aspect with purulent drainage) Integumentary: No rashes Neurological: Normal gait, Normal speech, Normal strength at 5/5 x4 extr, Normal tone, Normal affect Lymphatics: No axilla or inguinal lymphadenopathy - Studies Laboratory Data (last 24 hrs) 10/02/18 07:45: Sodium 134 L, Potassium 4.2, BUN 17, Creatinine 1.31 H, Glucose 359 H 10/02/18 07:45: WBC 8.7, Hgb 16.3, Hct 46.7, Plt Count 229 Microbiology Data (last 24 hrs): 10/02/18 07:45 Wound - Left Foot Gram Stain - Final Assessment and Plan - Problems (Diagnosis) (1) Failure of outpatient treatment Current Visit: Yes Status: Acute (2) Diabetic foot ulcer Current Visit: Yes Status: Acute Plan: We will start IV antibiotics, depending on previous admission cultures, can start patient on Ciprofloxacin. Wound care Dr. Luna consulted Foot x-ray with no evidence of osteomyelitis, recent MRI of the foot (last admission) also negative for osteomyelitis. Qualifiers: Diabetic foot ulcer location: toe Diabetes mellitus type: type 2 Laterality: left Non-pressure ulcer stage: with fat layer exposed Qualified Code(s): E11.621 - Type 2 diabetes mellitus with foot ulcer; L97.522 - Non- pressure chronic ulcer of other part of left foot with fat layer exposed (3) Diabetes mellitus Current Visit: Yes Status: Chronic Plan: Strict blood sugar control Restart home medications, Add sliding scale insulin. Adjust as needed. Accu-checks Qualifiers: Diabetes mellitus type: type 2 Diabetes mellitus fpc insulin use: with intermediate accountant use Diabetes mellitus complication status: with skin complications Diabetes mellitus complication detail: with other skin complication Qualified Code(s): E11.628 - Type 2 diabetes mellitus with other skin complications; Z79.4 - USP (current) use of insulin (4) Morbid obesity Onset Date: 04/15/17 Current Visit: No Status: Chronic (5) Hypertension Current Visit: No Status: Chronic Qualifiers: Hypertension type: essential hypertension Qualified Code(s): I10 - Essential (primary) hypertension - Plan DVT prophyalxis: Lovenox GI Prophylaxis: None Diet: Diabetic Disposition: Admit to the floor for IV antibiotics. Pending Dr. Luna recommendations. - Advance Directives Does patient have a Living Will: No Does patient have a Durable POA for Healthcare: No
[2018-10-02] MEDS ORDERED: GLUCAGON 1 MG/VIAL IM PRN (16:41)
[2018-10-02] MEDS ORDERED: D50W 25 GM/50 ML SYRINGE IV PRN (16:41)
[2018-10-02] MEDS ORDERED: INSULIN ASPART 45 UNIT SQ SCH (17:00)
[2018-10-02] MEDS: INSULIN LISPRO 100 UNIT/1 ML SQ SCH (18:32)
[2018-10-02] MEDS: hydroCHLOROthiazide 25 MG TAB PO SCH (18:33)
[2018-10-02] MEDS ORDERED: HOME MED 1 EA UNK (Gabapentin [Neurontin] 600 MG) PO SCH (21:00)
[2018-10-02] MEDS ORDERED: INSULIN DETEMIR 120 UNIT SQ SCH (21:00)
[2018-10-02] MEDS: INSULIN GLARGINE 100 UNITS/ML SQ SCH (21:00)
[2018-10-02] MEDS: CARVEDILOL 12.5 MG TAB PO SCH (21:48)
[2018-10-02] MEDS: ATORVASTATIN 80 MG TAB PO SCH (21:49)
[2018-10-02] MEDS: GABAPENTIN 300 MG CAP PO SCH (21:49)
[2018-10-03 04:54] LABS: Absolute Lymphocytes (CBC) 1.9 K/uL (0.7-4.9); Absolute Monocytes 0.6 K/uL (0.1-1.3); Basophils % 0.4 % (0-1.3); Eosinophils % 2.8 % (0-4.4); Hematocrit 42.5 % (39.6-49.0); Lymphocytes % 17.5 % (15.3-44.8); MPV 9.8 fL (7.6-11.3); Monocytes % 5.6 % (3.3-12.3); RBC Red Blood Cell Count 4.85 M/uL (4.33-5.43)
[2018-10-03 05:12] LABS: Bilirubin Total 0.3 mg/dL (0.2-1.0); Phosphorus 3.4 mg/dL (2.5-4.9); Potassium 4.6 mmol/L (3.5-5.1); Protein, Total 7.3 g/dL (6.4-8.2)
[2018-10-03] MEDS ORDERED: ONDANSETRON 4 MG/2 ML VIAL IV PRN (08:12)
--- NOTE | 2018-10-03 08:32 | P.CNS ---
Date of Consult: 10/03/18 Chief Complaint: left foot wound History of Present Illness: Patient was discharged recently on oral antibiotics and wound care instructions. States that he began have pain and discoloration left hallux yesterday and presented to the ER Allergies vancomycin Allergy (Verified 09/20/18 20:44) Hives iv contrast Allergy (Uncoded 09/20/18 20:44) Hives Home Medications: Amlodipine [Norvasc*] 5 mg PO DAILY 09/22/18 Gabapentin [Neurontin] 600 mg PO TID 09/22/18 Hydrocodone 5/APAP 325 [[place] 5/325*] 1 tab PO Q6H PRN 09/22/18 Lisinopril 40 mg PO DAILY 09/22/18 hydroCHLOROthiazide [Hydrochlorothiazide*] 25 mg PO DAILY 09/22/18 Collagenase [Santyl Ointment*] 1 appl TOP DAILY #1 tube 09/23/18 Doxycycline Monohydrate 100 mg PO BID #16 tablet 09/23/18 Aspirin Chewable [Aspirin Chewable*] 81 mg PO DAILY 10/02/18 Atorvastatin Calcium [Lipitor] 80 mg PO BEDTIME 10/02/18 Carvedilol [Coreg*] 12.5 mg PO BID 10/02/18 Insulin Aspart [Novolog] 45 unit SQ TIDWM 10/02/18 Insulin Detemir [Levemir] 120 unit SQ BID 10/02/18 Metformin ER [Glucophage ER*] 500 mg PO BID 10/02/18 - Past Medical/Surgical History Diabetic: Yes -: IDDM -: HTN -: Hernia -: neuropathy -: right foot 1st 2nd and 5th toe amputation -: abd hernia sx - Social History Alcohol use: No CD- Drugs: No Caffeine use: Yes Place of Residence: Home Review of Systems 10-point ROS is otherwise unremarkable Physical Examination Temp Pulse Resp BP Pulse Ox 97.2 F 72 19 179/101 H 97 10/03/18 07:53 10/03/18 07:53 10/03/18 07:53 10/03/18 07:53 10/03/18 07:53 General: Alert, In no apparent distress, Oriented x3 Cardiovascular: No edema, Normal pulses Capillary refill: <2 Seconds Musculoskeletal: No clubbing, No swelling, No contractures, No erythema, No tenderness, No warmth Integumentary: Diabetic ulcer (Two ulcerations noted left foot the first is noted to be plantar left 1st mpj with fibrin noted, does not probe to bone, no undermining, no drainage noted measures 0.6cm X 0.4cm X 0.2cm. Second ulceration plantar left hallux with fibrin noted, no probing, no undermining, no drainage noted measures 0.6cm X 0.5cm X 0.2cm. Mild pain on palpatin medial left hallux and 1st mpj. No cellulitis noted) Neurological: Abnormal sensation Laboratory Data (last 24 hrs) 10/02/18 07:45: Sodium 134 L, Potassium 4.2, BUN 17, Creatinine 1.31 H, Glucose 359 H Imagings Data: xray negative for osteomyelitis - Problems (1) Diabetic foot ulcer Current Visit: Yes Status: Acute Qualifiers: Diabetic foot ulcer location: toe Diabetes mellitus type: type 2 Laterality: left Non-pressure ulcer stage: with fat layer exposed Qualified Code(s): E11.621 - Type 2 diabetes mellitus with foot ulcer; L97.522 - Non- pressure chronic ulcer of other part of left foot with fat layer exposed Conclusions/Impression: Sorensen grade 2 ulcerations left foot. Will begin mupirocin to wound bid, continue iv antibiotics and will follow. Will need to get offloading shoe to aid in prevention of further ulceration or limb loss Physician Review: Patient Assessed, Agree with Above Assessment and Plan Time Spent Managing Pts care (In Minutes): 20
[2018-10-03] MEDS ORDERED: COLLAGENASE 30 GM OINTMENT TOP SCH (09:00)
[2018-10-03] MEDS ORDERED: HOME MED 1 EA UNK (Lisinopril [Lisinopril] 40 MG) PO SCH (09:00)
[2018-10-03] MEDS: MUPIROCIN 2% OINT 22GM TUBE TOP SCH ×2 (09:35→21:00)
[2018-10-03] MEDS: LISINOPRIL 20 MG TAB PO SCH (09:36)
[2018-10-03] MEDS: COLLAGENASE 30 GM OINTMENT TOP SCH (09:36)
[2018-10-03] MEDS: ASPIRIN 81 MG CHEWABLE TABLET PO SCH (09:37)
[2018-10-03] MEDS: CARVEDILOL 12.5 MG TAB PO SCH ×2 (09:37→21:09)
[2018-10-03] MEDS: GABAPENTIN 300 MG CAP PO SCH ×3 (09:37→21:08)
[2018-10-03] MEDS: AMLODIPINE 5 MG TAB PO SCH (09:37)
[2018-10-03] MEDS: hydroCHLOROthiazide 25 MG TAB PO SCH (09:37)
[2018-10-03] MEDS: INSULIN -REGULAR HUMAN 50 UNIT/0.5 ML ML SQ SCH ×4 (09:38→21:10)
[2018-10-03] MEDS: INSULIN LISPRO 100 UNIT/1 ML SQ SCH ×3 (09:39→16:50)
[2018-10-03] MEDS: INSULIN GLARGINE 100 UNITS/ML SQ SCH ×2 (09:40→21:12)
[2018-10-03] MEDS: HYDROCODONE/APAP 7.5/325 MG TAB PO PRN ×2 (12:33→18:34)
[2018-10-03] MEDS: ATORVASTATIN 80 MG TAB PO SCH (21:09)
--- NOTE | 2018-10-03 22:35 | PN ---
Date of Progress Note: 10/03/2018 Subjective: The patient seen and examined. Chart reviewed and case discussed with RN and Dr. Luna. He does not recommend any intervention at this time. The patient states his foot still hurts. No fevers overnight. Medications: List reviewed. Physical Examination: Vital Signs: Temperature 97.1, heart rate 74, blood pressure 115/63, respirations 18, O2 of 97% on r oom air. General: Awake, alert, oriented x3, in some mild distress due to pain. Morbidly obese, ill-appearin g male. BMI 46. CV: S1, S2. Regular rate and rhythm. Peripheral pulses present. Respiratory: Moving air well bilaterally. No wheezing or stridor. Gastrointestinal: Abdomen is soft, nontender, nondistended. Positive bowel sounds. No guarding or rigidity. Extremities: No clubbing, cyanosis, or edema. Neuro: Cranial nerves 2 through 12 intact grossly. No focal neurological deficit. Speech is normal . Skin: Left foot plantar aspect diabetic ulceration. Also, second ulceration on the first toe. Laboratory Data: Sodium 134, potassium 4.6, chloride 100, CO2 27, BUN 20, creatinine 1.34, glucose 2 70, calcium 8.5. WBC 10.8, H and H 14.6 and 42.5, platelets 204, neutrophils 73%. Blood cultures ar e pending. Wound culture is Staph coagulase positive. Assessment And Plan: 1.A 48-year-old male with left foot diabetic ulcer, failed outpatient treatment. Cultures from the wound growing coagulase-positive staph, possibly methicillin-resistant Staphylococcus aureus. Previo us MRI on last admission was negative for osteomyelitis. Appreciate Dr. Luna's input and does not r ecommend any incision and drainage at this point. Continue IV antibiotics. 2.Diabetes mellitus type 2 insulin requiring with skin complications. We will adjust insulin dose a s necessary. Monitor Accu-Cheks. 3.Morbid obesity, BMI of 46. 4.Essential hypertension, stable. 5.Noncompliance, intentional. 6.Deep venous thrombosis prophylaxis with Lovenox. 7.Diabetic neuropathy. We will adjust gabapentin dose. Plan: Continue to monitor cultures and consult Infectious Disease. Likely discharge in the next 24 to 48 hours depending on clinical response. /OSMEL Voice ID: [id number] Report ID: [id number]
[2018-10-04] MEDS: HYDROCODONE/APAP 7.5/325 MG TAB PO PRN ×3 (00:56→15:05)
[2018-10-04 04:21] LABS: Absolute Lymphocytes (CBC) 2.3 K/uL (0.7-4.9); Absolute Monocytes 0.6 K/uL (0.1-1.3); Absolute Neutrophil 5.7 K/uL (1.8-8.0); Basophils % 0.7 % (0-1.3); Hematocrit 40.9 % (39.6-49.0); Lymphocytes % 25.6 % (15.3-44.8); MPV 10.2 fL (7.6-11.3); Monocytes % 6.8 % (3.3-12.3); RBC Red Blood Cell Count 4.68 M/uL (4.33-5.43)
[2018-10-04 04:36] LABS: Potassium 5.2 mmol/L (3.5-5.1)
[2018-10-04] MEDS: COLLAGENASE 30 GM OINTMENT TOP SCH (07:47)
[2018-10-04] MEDS: ASPIRIN 81 MG CHEWABLE TABLET PO SCH (07:47)
[2018-10-04] MEDS: MUPIROCIN 2% OINT 22GM TUBE TOP SCH ×2 (07:48→21:27)
[2018-10-04] MEDS: GABAPENTIN 300 MG CAP PO SCH ×3 (07:48→21:21)
[2018-10-04] MEDS: hydroCHLOROthiazide 25 MG TAB PO SCH (08:04)
[2018-10-04] MEDS: LISINOPRIL 20 MG TAB PO SCH (08:04)
[2018-10-04] MEDS: AMLODIPINE 5 MG TAB PO SCH (08:04)
[2018-10-04] MEDS: CARVEDILOL 12.5 MG TAB PO SCH ×2 (08:05→21:19)
[2018-10-04] MEDS: INSULIN LISPRO 100 UNIT/1 ML SQ SCH ×3 (08:05→16:37)
[2018-10-04] MEDS: INSULIN GLARGINE 100 UNITS/ML SQ SCH ×2 (08:06→21:21)
[2018-10-04] MEDS: INSULIN -REGULAR HUMAN 50 UNIT/0.5 ML ML SQ SCH ×3 (08:06→21:22)
[2018-10-04] MEDS: CLINDAMYCIN 600MG/D5W 600 MG/50 ML BAG IV SCH ×2 (13:11→18:01)
[2018-10-04] MEDS: DOXYCYCLINE 100 MG CAP PO SCH ×2 (13:12→21:19)
[2018-10-04] MEDS ORDERED: SOD POLYSTYREN SUL 15 GM/60 ML UCUP PO ONE (13:20)
[2018-10-04] MEDS ORDERED: INSULIN -REGULAR HUMAN 50 UNIT/0.5 ML ML SQ SCH (13:20)
--- NOTE | 2018-10-04 17:32 | PN ---
Date of Progress Note: 10/04/2018 Subjective: The patient is seen and examined. Chart reviewed and case discussed with RN. The patie nt is otherwise doing well. The patient is going back and forth between saying that he was able to t ligia his medications and not being able to take his medications including insulin at home. Medications: List reviewed. Physical Examination: Vital Signs: Temperature 97, heart rate 112, blood pressure 133/83, respirations 20, O2 92% on room air. General: Awake, alert, oriented x3. CV: S1, S2. Regular rate and rhythm. No murmurs. Respiratory: Moving air well bilaterally. No wheezing or stridor. Gastrointestinal: Abdomen is soft, nontender, nondistended. Positive bowel sounds. Extremities: No clubbing, cyanosis, or edema. Neurologic: Nonfocal. Laboratory Data: Sodium 132, potassium 5.2, chloride 98, CO2 29, BUN 25, creatinine 1.46, glucose 37 0, calcium 8.7. WBC 9, H and H 14.1, 40.9, platelets 226. Blood cultures, no growth to date. Wound culture from the left foot growing MRSA. Assessment: A 48-year-old male with. 1.Diabetic foot wound on the left, failed outpatient treatment. Wound cultures growing out Methicil leon-resistant Staphylococcus aureus. MRI on previous admission negative for osteo. Dr. Luna did no t recommend any debridement at this time. We will continue wound care and IV antibiotics. Infectiou s Disease, Dr. Tran has been consulted. The patient may need long-term IV antibiotics. 2.Diabetes mellitus type 2 insulin requiring with skin complications. We will adjust insulin dose a s necessary. The patient's blood glucose level is still very elevated. Continue to monitor Accu-Nilam ks. 3.Morbid obesity. BMI 46. 4.Essential hypertension, stable. 5.Noncompliance, intentional. 6.Deep venous thrombosis prophylaxis with Lovenox. 7.Diabetic neuropathy. Gabapentin dose was adjusted. Plan: Depending on ID recommendations may need IV antibiotics long-term. The patient unfortunately is unfunded. We will discuss with Case Management regarding options. /OSMEL Voice ID: [id number] Report ID: [id number]
--- NOTE | 2018-10-04 17:38 | CON ---
History Of Present Illness: This is a 48-year-old male coming in with diabetic foot ulcer to the [facility] foot. This was located in the first metatarsal region. The patient has significant history of daniel betes and neuropathy with amputation of right foot big toe and small toe last year. The patient yonatan es any other problems. Currently taking medication for blood pressure and diabetes mellitus and neur opathy and aspirin. No other challenges. The patient developed this wound about a month ago. Past Medical History: Diabetes mellitus, neuropathy, hypertension, hernia, right foot first and fift h toe amputations, abdominal hernia surgery. Social History: Nondrinker. Family History: Noncontributory. Medication: Santyl and Bactroban. Allergies: VANCOMYCIN. Review of Systems: A 10-point review was performed. Physical Examination: General: This is a 48-year-old male, lying in bed, not in any acute cardiopulmonary distress. Vital Signs: Temperature 98, pulse 69, respirations 16, blood pressure 134/82. HEENT: Unremarkable. Neck: Supple. Lungs: Clear to auscultation. Heart: S1, S2. Regular. Abdomen: Soft, nontender. Bowel sounds present. Extremity: Left foot with first metatarsal region lesion noted. No excessive drainage or foul smell . Laboratory Data: Shows WBC 9, hemoglobin 14.1, platelets 226. Chemistry shows sodium 132, potassium 5.2, chloride 98, bicarb 29, BUN 35, creatinine 1.4, glucose is 370. Microdata shows positive for M RSA, sensitive to quinolones and tetracyclines. Assessment And Plan: Diabetic foot ulcer with methicillin-resistant staphylococcus aureus. I recomm end to do 2 weeks of quinolone, Cipro 500 mg, Cipro 250 mg q.12 hours as patient has renal insufficie ncy. Continue supportive care. Follow up with primary care. Repeat BMP while the patient is on ant ibiotic twice a week. NF/MODL Voice ID: [id number] Report ID: [id number]
[2018-10-04] MEDS: ATORVASTATIN 80 MG TAB PO SCH (21:21)
[2018-10-05] MEDS: CLINDAMYCIN 600MG/D5W 600 MG/50 ML BAG IV SCH ×2 (00:47→08:59)
[2018-10-05 04:23] VITALS: TEMP 96.9
[2018-10-05 04:40] LABS: Absolute Lymphocytes (CBC) 2.1 K/uL (0.7-4.9); Absolute Monocytes 0.5 K/uL (0.1-1.3); Absolute Neutrophil 5.4 K/uL (1.8-8.0); Basophils % 0.6 % (0-1.3); Eosinophils % 4.1 % (0-4.4); Hematocrit 40.9 % (39.6-49.0); Lymphocytes % 24.8 % (15.3-44.8); MPV 10.2 fL (7.6-11.3); Monocytes % 6.4 % (3.3-12.3); RBC Red Blood Cell Count 4.66 M/uL (4.33-5.43)
[2018-10-05 04:46] LABS: Potassium 5.2 mmol/L (3.5-5.1)
[2018-10-05] MEDS: INSULIN LISPRO 100 UNIT/1 ML SQ SCH ×2 (08:00→12:00)
[2018-10-05] MEDS ORDERED: SOD POLYSTYREN SUL 15 GM/60 ML UCUP PO ONE (08:16)
[2018-10-05] MEDS: AMLODIPINE 5 MG TAB PO SCH (08:18)
[2018-10-05] MEDS: ASPIRIN 81 MG CHEWABLE TABLET PO SCH (08:18)
[2018-10-05] MEDS: GABAPENTIN 300 MG CAP PO SCH (08:18)
[2018-10-05] MEDS: DOXYCYCLINE 100 MG CAP PO SCH (08:19)
[2018-10-05] MEDS: CARVEDILOL 12.5 MG TAB PO SCH (08:19)
[2018-10-05] MEDS: LISINOPRIL 20 MG TAB PO SCH (08:19)
[2018-10-05] MEDS: hydroCHLOROthiazide 25 MG TAB PO SCH (08:19)
[2018-10-05] MEDS: INSULIN GLARGINE 100 UNITS/ML SQ SCH (08:20)
[2018-10-05] MEDS: INSULIN -REGULAR HUMAN 50 UNIT/0.5 ML ML SQ SCH ×2 (08:20→11:30)
[2018-10-05 08:21] VITALS: BP 149/74
--- NOTE | 2018-10-05 08:44 | P.PN ---
Subjective Date of Service: 10/05/18 Chief Complaint: left foot wound Subjective: Improving Review of Systems 10-point ROS is otherwise unremarkable Physical Examination - Vital Signs Temperature: 96.9 F Blood Pressure: 149/74 Pulse: 67 Respirations: 16 Pulse Ox (%): 98 - Physical Exam General: Alert, In no apparent distress, Oriented x3 Cardiovascular: No edema, Normal pulses Capillary refill: <2 Seconds Musculoskeletal: No clubbing, No swelling, No contractures, No erythema, No tenderness, No warmth Integumentary: Diabetic ulcer (ulcerations to left plantar hallux and 1st mpj are improved. No purulence, no edema, no erythema) Neurological: Abnormal sensation - Studies Microbiology Data (last 24 hrs): 10/02/18 07:45 Wound - Left Foot Gram Stain - Final 10/02/18 07:45 Wound - Left Foot Culture & Sensitivity - Final Meth Resistant Staph Aureus Assessment And Plan - Current Problems (Diagnosis) (1) Diabetic foot ulcer Current Visit: Yes Status: Acute Plan: 1. Continue Bactroban to wound daily 2. From podiatric perspective patient can be d/c to home on oral antibiotics as described by Dr. Tran 3. Patient to follow up in wound care 10/09/18 Qualifiers: Diabetic foot ulcer location: toe Diabetes mellitus type: type 2 Laterality: left Non-pressure ulcer stage: with fat layer exposed Qualified Code(s): E11.621 - Type 2 diabetes mellitus with foot ulcer; L97.522 - Non- pressure chronic ulcer of other part of left foot with fat layer exposed Physician Review: Patient Assessed, Agree with Above Assessment and Plan
[2018-10-05] MEDS: MUPIROCIN 2% OINT 22GM TUBE TOP SCH (09:00)
[2018-10-05] MEDS: COLLAGENASE 30 GM OINTMENT TOP SCH (09:00)
[2018-10-05 10:19] VITALS: O2SAT 98
[2018-10-05] MEDS ORDERED: CLINDAMYCIN INJ 600 MG in NA CHLORIDE 0.9% 50 ML IV SCH (17:00)
--- NOTE | 2018-10-06 07:17 | DS ---
Date of Discharge: 10/05/2018 Reactor Kettle Operator: Dr. Luna with Podiatry and Dr. Tran with Infectious. Admitting Diagnoses: 1.Diabetic foot ulcer, failed outpatient treatment. 2.Diabetes mellitus type 2 insulin requiring with hyperglycemia. 3.Morbid obesity, BMI 46. 4.Essential hypertension. 5.Diabetic neuropathy. Discharge Diagnoses: 1.Diabetic foot ulcer on the left, failed outpatient treatment secondary to methicillin-resistant St aphylococcus aureus. 2.Methicillin-resistant Staphylococcus aureus infection. 3.Diabetes mellitus type 2 insulin requiring with skin complications and hyperglycemia. 4.Morbid obesity, BMI 46. 5.Noncompliance, intentional. 6.Essential hypertension. 7.Diabetic neuropathy. 8.Acute kidney injury. Hospital Course: The patient is a 48-year-old male who was recently discharged from the hospital for left foot ulcer on 09/23/2018. As this is second course of oral antibiotics, returns to the ER for worsening condition and ulceration. The patient's previous MRI was negative. His [facility] were positive for Staph aureus. He was restarted on IV antibiotics. Cultures were obtained a nd this time grew out MRSA from the wound. Dr. Luna evaluated the patient, but did not recommend an y intervention. X-ray did not show any fracture, dislocation, or any findings suggesting osteomyelit is as well as MRI and the previous admission was negative for osteo. The patient did complain of nilay e pain. His gabapentin dose was adjusted. His kidney function, however, became elevated and the pat ient was given IV fluids. He was counseled regarding his obesity. He [facility] need [facility] or gastric bypass surgery. He is in works for getting on the [employer] and states that he currently does have insulin, Levemir, as well as Humalog. T he patient does admit to being noncompliant with his diet. The patient was seen by Dr. Tran with I nfectious Disease regarding course of antibiotics. He did not recommend any IV antibiotics. He mara mmended 2 weeks of Cipro renally adjusted. The patient overall did well. His white count remained s table. There was no signs of sepsis. He was afebrile. He was able to ambulate without difficulty. He will need diabetic shoes to help heal those ulcers. He understands the importance of tight glyce josseline control. The patient was then discharged home in a stable condition. Activity: As tolerated. Medications: As per medication reconciliation list. Followup: Follow up with primary care physician in 2 to 3 days. Follow up with Dr. Luna in [email or web address] on Tuesday, October 09, 2018. He will need to establish care with bariatric surgeon, Now once his infection is healed. Return to ER for worsening condition. Have BMP repeated on Tuesday. Diet: Diabetic. Activity: No driving or operating heavy machinery while on narcotics. Physical Examination: General: Awake, alert, oriented x3. No acute distress. Morbidly obese. CV: S1, S2. No murmurs. RESPIRATORY: Moving air well bilaterally. No wheezing. Gastrointestinal: Abdomen is soft, nontender, nondistended. Positive bowel sounds. Extremities: No clubbing, cyanosis, edema. Neurologic: Nonfocal. Skin: Left foot plantar aspect wound, diabetic wound. No pustular drainage. Healthy tissue seen. Total time spent discharging the patient was 45 minutes. BRIANNA Voice ID: [id number] Report ID: [id number]
== END 2018-10-05 14:19 | disposition home or self-care (01) | DRG 638 ==
LOC: ER 07:23 → ERHOLD 09:10 → 4TH 11:20
PROVIDERS: ADMIT Family Medicine; ATTEND Family Medicine
DX: E11.621 Type 2 diabetes mellitus with foot ulcer (principal); Z68.42 Body mass index [BMI] 45.0-49.9, adult; N17.9 Acute kidney failure, unspecified; L97.522 Non-pressure chronic ulcer of other part of left foot with fat layer exposed; B95.62 Methicillin resistant Staphylococcus aureus infection as the cause of diseases classified elsewhere; E66.01 Morbid (severe) obesity due to excess calories; I10 Essential (primary) hypertension; Z72.0 Tobacco use; E11.40 Type 2 diabetes mellitus with diabetic neuropathy, unspecified; E11.65 Type 2 diabetes mellitus with hyperglycemia; Z91.19 Patient's noncompliance with other medical treatment and regimen; Z79.4 Long term (current) use of insulin; Z79.82 Long term (current) use of aspirin; Z89.431 Acquired absence of right foot; Z88.1 Allergy status to other antibiotic agents; Z91.041 Radiographic dye allergy status
CPT/HCPCS: 36415; 80048; 80053; 82010; 82962; 83605; 83735; 84100; 84145; 85025; 85652; 87040; 87070; 87077; 87186; 87205; 94760; 94762; 96365; 99285; J3590

== ENCOUNTER 2018-10-18 21:32 | Emergency (ER) | payer SELFPAY ==
--- OUTSIDE RECORDS SUMMARY | 2018-10-18 21:35 | XMS REPORT ---
:1970 Author Organization [facility] Address [address] [place] [address] Care Team Providers Name Role Phone Unavailable Unavailable Unavailable Problems This patient has no known problems. Allergies, Adverse Reactions, Alerts This patient has no known allergies or adverse reactions. Medications This patient has no known medications.
--- OUTSIDE RECORDS SUMMARY | 2018-10-18 21:35 | XMS REPORT | Continuity of Care Document ---
:1970 Author Organization Interface Problems Problem Status Onset Classification Date Comments Source Date Reported Displaced 03/29/20 10/05/2018 [facility] second metatarsal bone, right foot, initial encounter for closed fracture Diabetic foot 03/18/20 10/05/2018 [facility] ulcers [facility] Closed fracture 03/18/20 10/05/2018 [facility] of second [address] [place] [address] metatarsal bone of right foot [employer] Active 03/18/[address] Type 2 diabetes 10/05/2018 [facility] mellitus with [facility] hyperglycemia Type 2 diabetes 10/05/2018 [facility] mellitus with [facility] foot ulcer Non-pressure 10/05/2018 [facility] chronic ulcer of [facility] other part of unspecified foot with unspecified severity Personal history 10/05/2018 [facility] of nicotine [facility] dependence Exposure to other 10/05/2018 [facility] specified [facility] factors, initial encounter Medications Medication Details Route Status Patient Ordering Order Source Instructions Provider Date Metformin 500 mg=1 Active [facility] hydrochloride 500 tab, PO, 018 [facility] MG Oral Tablet BID-Meals, [Glucophage] # 30 tab, 0 Refill(s) Ciprofloxacin 500 500 mg=1 No [facility] MG Oral Tablet tab, PO, Longer 018 Hospital [Cipro] Q12H, X 10 Active day, # 20 tab, 0 Refill(s) Sulfamethoxazole 1 tab, PO, No [facility] 800 MG / BID, X 10 Longer 018 [facility] Trimethoprim 160 MG day, # 20 Active Oral Tablet tab, 0 [Bactrim] Refill(s) Allergies, Adverse Reactions, Alerts Substance Category Reaction Severity Reaction Status Date Comments Source type Reported No Known Assertion Drug Medication allergy [facility] Immunizations Immunization Date Given Site Status Last Updated Comments Source Results Order Name Results Value Reference Date Interpretation Comments Source Range ELECTROLYTE AGAP 10.4 meq/L 10.0 - 03/18 S 20.0 /2017 [facility] ELECTROLYTE A/G Ratio 0.6 0.7 - 1.6 03/18 [facility] ELECTROLYTE Globulin 5.5 g/dL 2.7 - 4.2 03/18 [facility] ELECTROLYTE B/C Ratio 17 6 - 25 03/18 [facility] ELECTROLYTE ASPARTATE 11 unit/L 0 - 37 03/18 S TRANSAMINASE [facility] ELECTROLYTE ALANINE 16 unit/L 0 - 65 03/18 S AMINOTRANS [facility] ELECTROLYTE Bili Total 0.3 mg/dL 0.2 - 1.3 03/18 [facility] ELECTROLYTE Alk Phos 150 unit/L 39 - 136 03/18 [facility] ELECTROLYTE Chloride Lvl 99 meq/L 95 - 109 03/18 [facility] ELECTROLYTE Albumin Lvl 3.4 g/dL 3.5 - 5.0 03/18 [facility] ELECTROLYTE Total 8.9 g/dL 6.4 - 8.4 03/18 S [facility] ELECTROLYTE Calcium Lvl 8.9 mg/dL 8.5 - 10.5 03/18 [facility] ELECTROLYTE CO2 28 meq/L 24 - 32 03/18 [facility] ELECTROLYTE eGFR 65 03/18 Result Comment: The eGFR is calculated using the CKD-EPI formula. In most young, healthy individuals the eGFR will be >90 mL/ min/1.73m2. The eGFR declines with age. An eGFR of 60-89 may be normal in mL/min/1. some populations, particularly the elderly, for whom the CKD-EPI formula has not been extensively validated. Use of the eGFR is not recommended in the following populations: [address] Individuals with unstable creatinine concentrations, including patients and those with serious co-morbid conditions. Patients with extremes in muscle mass or diet. The data above are obtained from the National Kidney Disease Education Program (NKDEP) which additionally recommends that when the eGFR is used in patients with extremes of body mass index for purposes of drug dosing, the eGFR should be multiplied by the estimated BMI. ELECTROLYTE Sodium Lvl 133 meq/L 135 - 145 03/18 [facility] ELECTROLYTE Creatinine 1.30 mg/dL 0.50 - 03/18 S Lvl 1.40 [facility] ELECTROLYTE BUN 22 mg/dL 7 - 22 03/18 [facility] S /2017 [facility] ELECTROLYTE Glucose Lvl 381 mg/dL 70 - 99 03/18 MH S [facility] ELECTROLYTE Potassium 4.4 meq/L 3.5 - 5.1 03/18 MH S Lvl /2017 [facility] HEMATOLOGY aPTT 32.4 s 22.9 - 03/18 MH 35.8 /2017 [facility] HEMATOLOGY INR 0.98 0.85 - 03/18 MH 1.17 [facility] HEMATOLOGY PROTIME 13.0 s 12.0 - 03/18 MH 14.7 [facility] HEMATOLOGY MCV 85.7 fL 80.0 - 03/18 MH 94.0 [facility] HEMATOLOGY Hct 44.0 % 42.0 - 03/18 MH 54.0 [facility] HEMATOLOGY MCH 30.1 pg 27.0 - 03/18 MH 31.0 [facility] HEMATOLOGY MCHC 35.1 g/dL 32.0 - 03/18 MH 36.0 [facility] HEMATOLOGY Platelet 267 K/CMM 133 - 450 03/18 [facility] HEMATOLOGY RDW 13.0 % 11.5 - 03/18 MH 14.5 [facility] HEMATOLOGY MPV 9.4 fL 7.4 - 10.4 03/18 [facility] HEMATOLOGY RBC X 10x6 5.13 M/CMM 4.70 - 03/18 MH 6.10 [facility] HEMATOLOGY WBC X 10x3 10.4 K/CMM 3.7 - 10.4 03/18 [facility] HEMATOLOGY Hgb 15.4 g/dL 14.0 - 03/18 MH 18.0 [facility] Ext Lower Ext Lower EXAM: Right lower extremity venous Doppler ultrasound 03/18 - [facility] Venous Venous /2017 - [facility] Doppler Doppler HISTORY: Right lower extremity pain [...] region measuring up to 4.6 cm. SL: [id number] Foot 3 Foot 3 views Exam: Foot 3 views bilateral DX 03[facility] bilateral [facility] /2017 - [facility] bilateral Clinical Indication: - bilateral foot ulcers DX Comparison: None Read by: Cameron Adams [...] osseous abnormality of the left foot. SL: [id number] Vital Signs Vital Sign Value Date Comments Source Temperature Oral (F) 98.2 F 03/18/2018 [facility] Respitory Rate 18 03/18/2018 [facility] Heart Rate 81 03/18/2018 [facility] Systolic (mm Hg) 166 03/18/2018 [facility] Diastolic (mm Hg) 93 03/18/2018 [facility] Heart Rate 91 03/18/2018 [facility] Systolic (mm Hg) 177 03/18/2018 [facility] Diastolic (mm Hg) 99 03/18/2018 [facility] Respitory Rate 20 03/18/2018 [facility] Temperature Oral (F) 98.4 F 03/18/2018 [facility] BMI Calculated 41.08 03/18/2018 [facility] Height 182.88 cm 03/18/2018 [facility] Weight 137.4 03/18/2018 [facility] Encounters Location Location Encounter Encounter Reason Attending ADM DC Status Source Details Type Number For Provider Date Date [facility] [id number] Mike 03/18 03/18 [facility] Andrer /2017 [facility] Procedures Procedure Code Date Perfomer Comments Source Amputation of 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
[2018-10-18] MEDS ORDERED: ACETAMINOPHEN 500 MG TAB ONE (22:53)
[2018-10-18 23:23] LABS: Absolute Lymphocytes (CBC) 2.1 K/uL (0.7-4.9); Absolute Monocytes 0.5 K/uL (0.1-1.3); Absolute Neutrophil 7.7 K/uL (1.8-8.0); Eosinophils % 3.9 % (0-4.4); Hematocrit 43.4 % (39.6-49.0); Lymphocytes % 19.5 % (15.3-44.8); MPV 10.1 fL (7.6-11.3); Monocytes % 4.7 % (3.3-12.3); RBC Red Blood Cell Count 4.97 M/uL (4.33-5.43)
[2018-10-18 23:52] LABS: ALT/SGPT 16 U/L (12-78); AST/SGOT 11 U/L (15-37); Albumin 3.4 g/dL (3.4-5.0); Alkaline Phosphatase 159 U/L (45-117); BUN Blood Urea Nitrogen 17 mg/dL (7-18); Bicarbonate 24 mmol/L (21-32); Bilirubin Direct < 0.1 mg/dL (0-0.2); Bilirubin Total 0.3 mg/dL (0.2-1.0); Potassium 3.8 mmol/L (3.5-5.1); Protein, Total 8.1 g/dL (6.4-8.2); Sodium Level 137 mmol/L (136-145)
[2018-10-18 23:59] LABS: Glucose Level 415 mg/dL (74-106)
[2018-10-19] MEDS ORDERED: NA CHLORIDE 0.9% 1,000 ML ONE (01:46)
--- NOTE | 2018-10-19 03:32 | EDPHYS ---
Physician Documentation [facility] Name: Lion Pickard Age: 48 yrs Sex: Male : 1970 Arrival Date: 10/18/2018 Time: 21:34 Bed 5 Private MD: ED Physician Zack Chacko HPI: 10/19 08:17 This 48 yrs old Male presents to ER via Ambulatory with complaints of hernia wa pain, Arm Pain - where arm folds. 08:17 The patient or guardian complains of pain, that is acute, swelling, tenderness. The wa complaints affect the right lateral aspect of antecubital fossa. Context: denies known injury. noted a day ago. also c/o pain in the area of abdomen where he had a hernia repair. Onset: The symptoms/episode began/occurred 2 day(s) ago. Treatment prior to arrival includes: no previous treatment. Modifying factors: The symptoms are alleviated by nothing. the symptoms are aggravated by nothing. Associated signs and symptoms: The patient has no apparent associated signs or symptoms. Severity of symptoms: At their worst the symptoms were moderate, in the emergency department the symptoms are unchanged. The patient has not experienced similar symptoms in the past. The patient has not recently seen a physician. 2 complaints: abd pain and R arm pain. Historical: - Allergies: 10/18 21:38 IV contrast; la1 21:38 Vancomycin; la1 21:38 Erythromycin; la1 - PMHx: 21:38 Diabetes - IDDM; Hernia; Hypertension; neuropathy; la1 - Immunization history:: Adult Immunizations up to date. - Social history:: Smoking status: Patient/guardian denies using tobacco. - Ebola Screening: : No symptoms or risks identified at this time. - Family history:: not pertinent. - Hospitalizations: : No recent hospitalization is reported. ROS: 10/19 08:20 Constitutional: Negative for fever, chills, and weight loss, Eyes: Negative for injury, wa pain, redness, and discharge, ENT: Negative for injury, pain, and discharge, Neck: Negative for injury, pain, and swelling, Cardiovascular: Negative for chest pain, palpitations, and edema, Respiratory: Negative for shortness of breath, cough, wheezing, and pleuritic chest pain, Back: Negative for injury and pain, : Negative for injury, bleeding, discharge, and swelling, MS/Extremity: Negative for injury and deformity, Skin: Negative for injury, rash, and discoloration, Neuro: Negative for headache, weakness, numbness, tingling, and seizure, Psych: Negative for depression, anxiety, suicide ideation, homicidal ideation, and hallucinations. Abdomen/GI: Positive for abdominal pain. MS/extremity: Positive for pain, of the right antecubital area. All other systems are negative. Exam: 08:21 Constitutional: This is a well developed, well nourished patient who is awake, alert, wa and in no acute distress. Head/Face: Normocephalic, atraumatic. Eyes: Pupils equal round and reactive to light, extra-ocular motions intact. Lids and lashes normal. Conjunctiva and sclera are non-icteric and not injected. Cornea within normal limits. Periorbital areas with no swelling, redness, or edema. ENT: Nares patent. No nasal discharge, no septal abnormalities noted. Tympanic membranes are normal and external auditory canals are clear. Oropharynx with no redness, swelling, or masses, exudates, or evidence of obstruction, uvula midline. Mucous membranes moist. Neck: Trachea midline, no thyromegaly or masses palpated, and no cervical lymphadenopathy. Supple, full range of motion without nuchal rigidity, or vertebral point tenderness. No Meningismus. Chest/axilla: Normal chest wall appearance and motion. Nontender with no deformity. No lesions are appreciated. Cardiovascular: Regular rate and rhythm with a normal S1 and S2. No gallops, murmurs, or rubs. Normal PMI, no JVD. No pulse deficits. Respiratory: Lungs have equal breath sounds bilaterally, clear to auscultation and percussion. No rales, rhonchi or wheezes noted. No increased work of breathing, no retractions or nasal flaring. Back: No spinal tenderness. No costovertebral tenderness. Full range of motion. Skin: Warm, dry with normal turgor. Normal color with no rashes, no lesions, and no evidence of cellulitis. Neuro: Awake and alert, GCS 15, oriented to person, place, time, and situation. Cranial nerves II-XII grossly intact. Motor strength 5/5 in all extremities. Sensory grossly intact. Cerebellar exam normal. Normal gait. 08:21 Abdomen/GI: Inspection: abdomen appears normal, Bowel sounds: normal, Palpation: soft, in all quadrants, mild abdominal tenderness, in the umbilical area, in the region of surgical scarring secondary to hernia repair. 08:21 Musculoskeletal/extremity: Extremities: grossly normal except: noted in the right antecubital area, lateral aspect: swelling, tenderness. Vital Signs: 10/18 21:39 Pulse 76; Resp 16; Temp 97.5(O); Pulse Ox 99% on R/A; Weight 140.61 kg; Height 5 ft. 9 la1 in. (175.26 cm); Pain 10/10; 21:41 BP 173 / 100; la1 10/19 00:24 BP 178 / 92; Pulse 75; Resp 18; Pulse Ox 98% on R/A; tl2 01:16 BP 183 / 93; Pulse 73; Resp 98; Pulse Ox 98% on R/A; ea 01:56 BP 178 / 95; Pulse 64; Resp 18; Pulse Ox 98% on R/A; tl2 02:57 BP 172 / 77; Pulse 60; Resp 18; Pulse Ox 98% on R/A; ea 10/18 21:39 Body Mass Index 45.78 (140.61 kg, 175.26 cm) la1 MDM: 10/18 21:51 Patient medically screened. tx 10/19 08:23 Differential diagnosis: r/o DVT. consider insect bite or contusion. r/o incarcerated wa hernia. Data reviewed: vital signs, nurses notes. Test interpretation: by ED physician or midlevel provider: labs noted for hyperglycemia. Doppler LUE: no DVT. ED course: fluids given for hyperglycemia. tylenol po. given. will have f/u with PMD. 10/18 22:35 Order name: Basic Metabolic Panel; Complete Time: 01:07 tx 10/18 22:35 Order name: CBC with Diff; Complete Time: 01: tx 10/18 22:35 Order name: Hepatic Function; Complete Time: 01:07 tx 10/18 22:35 Order name: CT Abd/Pelvis - Without Cont tx 10/19 02:57 Order name: UPPER EXTREMITY VENOUS UNILATE EDMS 10/18 22:35 Order name: IV Saline Lock; Complete Time: 22:50 tx 10/18 22:35 Order name: Labs collected and sent; Complete Time: 22:50 tx Administered Medications: 10/18 22:45 Drug: Tylenol 1000 mg Route: PO; ea 10/19 00:06 Follow up: Response: No adverse reaction; Pain is decreased ea 01:37 Drug: NS 0.9% 1000 ml Route: IV; Rate: 1 bolus; Site: right antecubital; ea 02:30 Follow up: IV Status: Completed infusion; IV Intake: 1000ml tl2 02:57 Follow up: Response: No adverse reaction; IV Intake: 1000ml ea Disposition: 10/19/18 03:31 Discharged to Home. Impression: Acute abdominal pain, hyperglycemia, Acute Left arm pain and swelling, Constipation. - Condition is Stable. - Prescriptions for Senna Laxative 25 mg Oral tablet - take 2 tablet by ORAL route once daily repeat x 1 24 hours later if no relief with bowel movement; 4 tablet. - Medication Reconciliation Form, Thank You Letter, Antibiotic Education, Prescription Opioid Use form. - Follow up: Private Physician; When: 2 - 3 days; Reason: Recheck today's complaints. - Problem is new. - Symptoms have improved. - Notes: continue your medication as prescribed. see your doctor in 2-3 days for further evaluation Signatures: Dispatcher [employer] [facility] Bo Mccauley RN RN laShelbie Lindsey RN RN tl2 Tati Galvan RN RN [facility] Miami[facility] MD MD wa Corrections: (The following items were deleted from the chart) 02:57 01:09 Extremity Venous [email or web address] ordered. [facility] EDOR 03:56 03:31 10/19/2018 03:31 Discharged to Home. Impression: Acute abdominal pain; tl2 hyperglycemia; Acute Left arm pain and swelling; Constipation. Condition is Stable. Forms are Medication Reconciliation Form, Thank You Letter, Antibiotic Education, Prescription Opioid Use. Follow up: Private Physician; When: 2 - 3 days; Reason: Recheck today's complaints. Problem is new. Symptoms have improved. wa
--- NOTE | 2018-10-19 03:32 | ER ---
Nurse's Notes [facility] Name: Lion Pickard Age: 48 yrs Sex: Male : 1970 Arrival Date: 10/18/2018 Time: 21:34 Bed 5 Private MD: Diagnosis: Acute abdominal pain;hyperglycemia;Acute Left arm pain and swelling;Constipation Presentation: 10/18 21:38 Presenting complaint: Patient states: swelling and pain to right AC area and hernia la1 pain. Transition of care: patient was not received from another setting of care. Onset of symptoms was October 18, 2018. Risk Assessment: Do you want to hurt yourself or someone else? Patient reports no desire to harm self or others. Initial Sepsis Screen: Does the patient meet any 2 criteria? No. Patient's initial sepsis screen is negative. Does the patient have a suspected source of infection? No. Patient's initial sepsis screen is negative. Care prior to arrival: None. 21:38 Method Of Arrival: Ambulatory la1 21:38 Acuity: BATSHEVA 3 la1 Historical: - Allergies: 21:38 IV contrast; la1 21:38 Vancomycin; la1 21:38 Erythromycin; la1 - PMHx: 21:38 Diabetes - IDDM; Hernia; Hypertension; neuropathy; la1 - Immunization history:: Adult Immunizations up to date. - Social history:: Smoking status: Patient/guardian denies using tobacco. - Ebola Screening: : No symptoms or risks identified at this time. - Family history:: not pertinent. - Hospitalizations: : No recent hospitalization is reported. Screenin:05 Abuse screen: Denies threats or abuse. Nutritional screening: No deficits noted. ea Tuberculosis screening: No symptoms or risk factors identified. Fall Risk None identified. Assessment: 22:04 General: Appears in no apparent distress. Behavior is calm, cooperative, appropriate ea for age. Pain: Complains of pain in right foot. Neuro: Level of Consciousness is awake, alert, obeys commands, Oriented to person, place, time, situation. Cardiovascular: Patient's skin is warm and dry. Respiratory: Airway is patent Respiratory effort is even, unlabored, Respiratory pattern is regular, symmetrical. GI: Parent/caregiver reports the patient having pain in his old hernia repair incision. : No signs and/or symptoms were reported regarding the genitourinary system. Derm: Skin is pink, warm \T\ dry. 23:36 Reassessment: Patient and/or family updated on plan of care and expected duration. Pain ea level reassessed. Patient is alert, oriented x 3, equal unlabored respirations, skin warm/dry/pink. Awaiting for CT results. 10/19 00:30 Reassessment: Patient and/or family updated on plan of care and expected duration. Pain ea level reassessed. Patient is alert, oriented x 3, equal unlabored respirations, skin warm/dry/pink. 01:50 Reassessment: Patient and/or family updated on plan of care and expected duration. Pain ea level reassessed. Patient is alert, oriented x 3, equal unlabored respirations, skin warm/dry/pink. Awaiting on ultrasound. 02:58 Reassessment: Patient and/or family updated on plan of care and expected duration. Pain ea level reassessed. Patient is alert, oriented x 3, equal unlabored respirations, skin warm/dry/pink. Awaiting on ultrasound. 03:08 Reassessment: Patient and/or family updated on plan of care and expected duration. Pain ea level reassessed. Patient is alert, oriented x 3, equal unlabored respirations, skin warm/dry/pink. Ultrasound at bedside. 03:53 Reassessment: Patient appears in no apparent distress at this time. Patient and/or tl2 family updated on plan of care and expected duration. Pain level reassessed. Patient is alert, oriented x 3, equal unlabored respirations, skin warm/dry/pink. pt verbalized understanding of discharge instructions, need for follow up and prescription usage Patient states feeling better. Vital Signs: 10/18 21:39 Pulse 76; Resp 16; Temp 97.5(O); Pulse Ox 99% on R/A; Weight 140.61 kg; Height 5 ft. 9 la1 in. (175.26 cm); Pain 10; 21:41 BP 173 / 100; la1 10/19 00:24 BP 178 / 92; Pulse 75; Resp 18; Pulse Ox 98% on R/A; tl2 01:16 BP 183 / 93; Pulse 73; Resp 98; Pulse Ox 98% on R/A; ea 01:56 BP 178 / 95; Pulse 64; Resp 18; Pulse Ox 98% on R/A; tl2 02:57 BP 172 / 77; Pulse 60; Resp 18; Pulse Ox 98% on R/A; ea 10/18 21:39 Body Mass Index 45.78 (140.61 kg, 175.26 cm) la1 ED Course: 10/18 21:34 Patient arrived in ED. am2 21:39 Triage completed. la1 21:39 Arm band placed on left wrist. la1 21:51 Zack Chacko MD is Attending Physician. wa 22:04 Tati Galvan, VIRGEN is Primary Nurse. ea 22:05 Patient has correct armband on for positive identification. Bed in low position. Call ea light in reach. Side rails up X2. 22:50 Inserted saline lock: 22 gauge in left hand, using aseptic technique. Blood collected. tl2 22:50 Initial lab(s) drawn, by me, sent to lab. tl2 23:12 CT Abd/Pelvis - Without Cont In Process Unspecified. EDMS 23:59 Notified ED physician of a critical lab result(s). glucose of 415. 10/19 03:17 UPPER EXTREMITY VENOUS UNILATE In Process Unspecified. EDMS 03:53 No provider procedures requiring assistance completed. IV discontinued, intact, tl2 bleeding controlled, No redness/swelling at site. Pressure dressing applied. Administered Medications: 10/18 22:45 Drug: Tylenol 1000 mg Route: PO; ea 10/19 00:06 Follow up: Response: No adverse reaction; Pain is decreased ea 01:37 Drug: NS 0.9% 1000 ml Route: IV; Rate: 1 bolus; Site: right antecubital; ea 02:30 Follow up: IV Status: Completed infusion; IV Intake: 1000ml tl2 02:57 Follow up: Response: No adverse reaction; IV Intake: 1000ml ea Intake: 02:30 IV: 1000ml; Total: 1000ml. tl2 02:57 IV: 1000ml; Total: 2000ml. ea Outcome: 03:31 Discharge ordered by . wa 03:54 Discharged to home ambulatory, with family. tl2 03:54 Condition: stable 03:54 Discharge instructions given to patient, Instructed on discharge instructions, follow up and referral plans. medication usage, Demonstrated understanding of instructions, follow-up care, medications, Prescriptions given X 1. 03:56 Patient left the ED. tl2 Signatures: Dispatcher [employer] EDMS Samra Sticia, RN RN Bo Jacobs RN RN la1 Shelbie Fair RN RN tl2 Chelly Beavers Elena, RN RN ea Appiah, William, MD MD wa Corrections: (The following items were deleted from the chart) 10/18 22:06 22:04 GI: No signs and/or symptoms were reported involving the gastrointestinal system. jagruti chand 10/19 03:54 10/18 22:50 Inserted saline lock: 22 gauge in left hand, using aseptic technique. Blood tl2 collected. tl2
--- NOTE | 2018-10-19 08:37 | RAD REPORT ---
EXAM DESCRIPTION: UPPER EXTREMITY VENOUS UNILATE10/19/2018 3:18 am CLINICAL HISTORY: Right arm pain and swelling COMPARISON: None FINDINGS: The right internal jugular, right subclavian, right cephalic, right axillary, right brach ial, right basilic, right ulnar and right radial veins are generally compressible and demonstrate au gmentation. Doppler demonstrates good flow. IMPRESSION: No evidence of thrombus within the veins of the right upper extremity
[2018-10-19 08:46] VITALS: TEMP 97.5
[2018-10-19 08:48] VITALS: O2SAT 98
[2018-10-19 08:52] VITALS: BP 172/77
--- NOTE | 2018-10-23 15:33 | RAD REPORT ---
EXAM DESCRIPTION: CT - Abdomen Pelvis Wo Contrast - 10/19/2018 6:38 am CLINICAL HISTORY: 48 years Male, abd wall hernia area pain COMPARISON: None. TECHNIQUE: 5 mm axial images of the abdomen and pelvis were obtained without intravenous contrast. 3 mm sagittal and coronal reformatted images were obtained. This exam was performed according to our departmental dose-optimization program, which includes autom ated exposure control, adjustment of the mA and/or kV according to patient size and/or use of iterati ve reconstruction technique. INTRAVENOUS CONTRAST: None. FINDINGS: Lung bases: Normal. Liver: Normal. Spleen: Normal. Pancreas: Normal. Gallbladder: There is evidence of cholelithiasis.. Right adrenal gland: Normal. Left adrenal gland: Normal. Right kidney: Normal. Left kidney: Normal. Retroperitoneal structures: Normal. Bowel survey: There is increased stool within the ascending, transverse, and descending colon. The di stal ileum is unremarkable. The appendix demonstrates enlargement of the distal portion measuring 0.9 cm in diameter. There is no evidence of inflammation. This likely is normal for patient. Urinary bladder: Normal. Prostate gland: Normal size. Peritoneal cavity: Normal. Mesentery structures: Normal. Abdominal wall: There is a moderate-sized area of previous hernia repair identified superior to the u mbilicus. There is no evidence of recurrent herniation.. Bony structures: No suspicious lesions. IMPRESSION: 1. Evidence of previous hernia repair in the midline of the anterior abdominal wall supe rior to the umbilicus. No evidence of recurrent herniation. 2. Increased stool within the ascending, transverse, descending colon. 3. Cholelithiasis. Electronically signed by: Jama Martin MD 10/18/2018 11:27 PM CDT Due to temporary technical issues with the PACS/Fluency reporting system, reports are being signed by the in house radiologist as a courtesy to ensure prompt reporting. The interpreting radiologist is f ully responsible for the content of the report.
== END 2018-10-19 03:56 | disposition home or self-care (01) ==
LOC: ER 21:32
DX: M79.602 Pain in left arm (principal); M79.89 Other specified soft tissue disorders; K59.00 Constipation, unspecified; R73.9 Hyperglycemia, unspecified; E11.65 Type 2 diabetes mellitus with hyperglycemia; E11.40 Type 2 diabetes mellitus with diabetic neuropathy, unspecified; Z88.3 Allergy status to other anti-infective agents
CPT/HCPCS: 36415; 74176; 80048; 80076; 85025; 93971; 96360; 99284; J7030